=== PATIENT | male | born 1940 | race Caucasian/White ===

== ENCOUNTER 2017-01-14 15:28 | Outpatient (CLI) | payer MEDICARE ==
--- NOTE | 2017-01-15 10:12 | XRAY Report ---
TWO-VIEW CHEST: 01/14/2017 CLINICAL INDICATION: Chronic cough. FINDINGS: Frontal and lateral views of the chest demonstrate a normal cardiac silhouette. Changes o f previous cardiac surgery are present. The lungs are hyperinflated, compatible with COPD. No focal consolidation, effusion, or pneumothorax is present. IMPRESSION: COPD, BUT NO EVIDENCE OF ACUTE CARDIOPULMONARY DISEASE. JOB #: [id number] EXT JOB #:[id number]
== END 2017-01-14 15:29 | disposition home or self-care (01) ==
LOC: DI.S 15:28
PROVIDERS: ATTEND Internal Medicine
DX: J44.9 Chronic obstructive pulmonary disease, unspecified (principal)
CPT/HCPCS: 71020

== ENCOUNTER 2017-02-16 09:14 | Outpatient (CLI) | payer MEDICARE ==
[2017-02-16] MEDS ORDERED: ALBUTEROL NEB 2.5 MG/3 ML INH ONE (09:26)
== END 2017-02-16 09:15 | disposition home or self-care (01) ==
LOC: RT 09:14
PROVIDERS: ATTEND Internal Medicine
DX: R05 Cough (principal)
CPT/HCPCS: 94060; J7613

== ENCOUNTER 2017-04-15 14:59 | Outpatient (CLI) | payer MEDICARE ==
--- NOTE | 2017-04-16 10:44 | XRAY Report ---
TWO VIEW CHEST: 04/15/2017 CLINICAL INDICATION: Cough, dyspnea, weight loss. COMPARISON: 01/14/2017. FINDINGS: Frontal and lateral views of the chest demonstrate a normal cardiac silhouette. Postoperat mallory changes of cardiac surgery are stable. There is new right hilar fullness with surrounding air spa ce disease. This may represent a pneumonia with adenopathy, but the possibility of an underlying mass lesion cannot be excluded. Followup films following appropriate antibiotic therapy are recommended. No effusion or pneumothorax is seen. The lungs remain hyperinflated. IMPRESSION: NEW RIGHT HILAR FULLNESS, WITH PATCHY RIGHT UPPER LOBE INFILTRATE. THESE CHANGES ARE NEW FROM 01/14/2017. FOLLOWUP FOLLOWING APPROPRIATE ANTIBIOTIC THERAPY IS RECOMMENDED TO EXCLUDE A DEVEL OPING MASS LESION. JOB #: [id number] EXT JOB #:[id number]
== END 2017-04-15 15:00 | disposition home or self-care (01) ==
LOC: DI.S 14:59
PROVIDERS: ATTEND Internal Medicine
DX: R91.8 Other nonspecific abnormal finding of lung field (principal)
CPT/HCPCS: 71020

== ENCOUNTER 2017-04-27 13:29 | Outpatient (CLI) | payer OTHER, MEDICARE ==
[2017-04-27 14:01] LABS: CREATININE 0.6 mg/dL (0.6-1.2)
--- NOTE | 2017-04-28 09:09 | CT Report ---
CT CHEST WITHOUT CONTRAST, HIGH-RESOLUTION TECHNIQUE: 04/27/2017 CLINICAL INDICATION: Cough, dyspnea following pneumonia. TECHNIQUE: Axial prone inspiratory, supine inspiratory, supine expiratory images of the lungs were obtained at 1 mm collimation every 20 mm, followed by conventional noncontrast CT of the chest. No previous CT is available for comparison. Comparison is made to previous chest x-ray of 04/15/2017. FINDINGS: There is no evidence of interstitial fibrosis on the high-resolution examination. There is a large right hilar mass present, measuring 7.7 x 3.7 x 7.1 cm. This produces significant mass effect upon the right-sided bronchi, especially the upper lobe. Multiple satellite pulmonary nodules are present in the right lung, measuring up to 2 cm in the superior segment of the right lower lobe. No left-sided pulmonary nodule is appreciated. No effusion or pneumothorax is present. There is a moderate hiatal hernia present. Mediastinal adenopathy is present, but no left hilar adenopathy is seen, allowing for the lack of intravenous contrast. Trace right pleural effusion is seen inferiorly. Limited evaluation of upper abdominal structures demonstrates normal adrenal glands and cholelithiasis. There is a small hypodensity in the posterior right lobe of the liver, likely representing a small cyst. Osseous structures demonstrate degenerative and postsurgical changes. IMPRESSION: LARGE RIGHT HILAR MASS, WITH SATELLITE PULMONARY NODULES. THE APPEARANCE IS MOST SUSPICIOUS FOR A CENTRAL SMALL CELL CARCINOMA. CORRELATION WITH BRONCHOSCOPY AND BIOPSY IS RECOMMENDED. In accordance with CT protocol optimization, one or more of the following dose reduction techniques were utilized for this exam: automated exposure control, adjustment of mA and/or KV based on patient size, or use of iterative reconstructive technique. JOB #: [id number] EXT JOB #: [id number] MTDD
== END 2017-04-27 13:30 | disposition home or self-care (01) ==
LOC: LAB 13:29
PROVIDERS: ATTEND Internal Medicine
DX: R91.8 Other nonspecific abnormal finding of lung field (principal); R05 Cough; R06.00 Dyspnea, unspecified
CPT/HCPCS: 71250; 82565

== ENCOUNTER 2017-07-21 15:20 | Outpatient (CLI) | payer OTHER, MEDICARE ==
--- NOTE | 2017-07-21 16:30 | XRAY Report ---
TWO VIEW CHEST: 07/21/2017 CLINICAL INDICATION: Lung cancer. COMPARISON: 04/15/2017, CT of 04/27/2017. FINDINGS: Frontal and lateral views of the chest demonstrate changes of previous cardiac surgery. A left jugular port terminates in the proximal right atrium. There is now complete collapse of the righ t middle lobe, with increasing size of the right hilar mass from previous chest x-ray. Trace right ef fusion is present. No pneumothorax is seen. IMPRESSION: INCREASING SIZE OF RIGHT HILAR MASS, NOW WITH COMPLETE COLLAPSE OF THE RIGHT MIDDLE LOBE . JOB #: [id number] EXT JOB #:[id number]
== END 2017-07-21 15:21 | disposition home or self-care (01) ==
LOC: DI.S 15:20
PROVIDERS: ATTEND Internal Medicine
DX: C34.11 Malignant neoplasm of upper lobe, right bronchus or lung (principal); J98.19 Other pulmonary collapse
CPT/HCPCS: 71020

== ENCOUNTER 2017-08-03 15:50 | Outpatient (CLI) | payer OTHER, MEDICARE ==
--- NOTE | 2017-08-04 16:20 | XRAY Report ---
TWO VIEW CHEST: 08/03/2017 CLINICAL HISTORY: Short of breath. COMPARISON: Chest CT of 04/27/2017 and chest x-ray of 07/21/2017. FINDINGS: The patient is status post sternotomy with dehiscent superior sternal suture. Left Port-A-Cath in place. There is right middle lobe collapse with a large right hilar mass. Stable to increasing right pleural effusion. Grossly clear left lung without effusion. No pneumothorax. IMPRESSION: CHEST X-RAY SIMILAR IN APPEARANCE TO 07/21/2017 REDEMONSTRATING A LARGE RIGHT HILAR MASS AND RIGHT MIDDLE LOBE COLLAPSE WITH RIGHT PLEURAL EFFUSION. JOB #: [id number] EXT JOB #: [id number] [facility]
== END 2017-08-03 15:51 | disposition home or self-care (01) ==
LOC: DI.S 15:50
PROVIDERS: ATTEND Internal Medicine
DX: R91.8 Other nonspecific abnormal finding of lung field (principal); J98.11 Atelectasis; J90 Pleural effusion, not elsewhere classified
CPT/HCPCS: 71020

== ENCOUNTER 2017-08-19 13:28 | Outpatient (CLI) | payer OTHER ==
--- NOTE | 2017-08-20 13:17 | XRAY Report ---
DATE OF SERVICE: 08/19/2017 EXAM: TWO VIEW CHEST: 08/19/2017 CLINICAL INDICATION: Shortness of breath. COMPARISON: 08/03/2017. FINDINGS: Frontal and lateral views of the chest demonstrate a normal cardiac silhouette. Postopera tive changes are stable. The left jugular port is stable. Right hilar mass and collapse of the right middle lobe are stable. Trace right effusion is present. No pneumothorax. IMPRESSION: LARGE RIGHT HILAR MASS, WITH RIGHT MIDDLE LOBE COLLAPSE AND SMALL RIGHT EFFUSION, STABLE FROM PREVIOUS. NO SIGNIFICANT INTERVAL CHANGE. TD: 08/20/2017 12:06
== END 2017-08-19 13:29 | disposition home or self-care (01) ==
LOC: DI.S 13:28
PROVIDERS: ATTEND Internal Medicine
DX: R91.8 Other nonspecific abnormal finding of lung field (principal); J98.19 Other pulmonary collapse; J90 Pleural effusion, not elsewhere classified; R06.02 Shortness of breath
CPT/HCPCS: 71020

== ENCOUNTER 2017-11-09 11:31 | Outpatient (CLI) | payer OTHER ==
--- NOTE | 2017-11-09 14:44 | XRAY Report ---
TWO VIEW CHEST: 11/09/2017 COMPARISON: Chest CT 10/21/2017. INDICATION: Malignant pleural effusion and chest pain. TECHNIQUE: Two views. FINDINGS: Left thoracic port, tip overlies the cavoatrial junction. Sternotomy is noted. Again seen is a known right perihilar and right middle lobe mass and atelectasis. No appreciable change compared to recent CT. Right pleural effusion is present. No pneumothorax. Mediastinum appears otherwise unremarkable. IMPRESSION: STABLE APPEARANCE OF RIGHT PERIHILAR AND RIGHT MIDDLE LOBE MASS AND RIGHT PLEURAL EFFUSION. NO ACUTE FINDINGS IN OTHER REGARDS. TD: 11/09/2017 14:44 MTDHima
== END 2017-11-09 11:32 | disposition home or self-care (01) ==
LOC: DI 11:31
PROVIDERS: ATTEND Internal Medicine
DX: C34.90 Malignant neoplasm of unspecified part of unspecified bronchus or lung (principal); J91.0 Malignant pleural effusion; R07.9 Chest pain, unspecified
CPT/HCPCS: 71046

== ENCOUNTER 2017-11-09 12:23 | Emergency (ER) | payer MEDICARE, OTHER ==
--- NOTE | 2017-11-09 12:47 | ED Physician Documentation ---
PD HPI DYSPNEA - Stated complaint Stated Complaint: CHEST PAIN - Chief complaint Chief Complaint: General - History obtained from History obtained from: Patient - History of Present Illness Timing - onset: How many weeks ago (he has had increasing dyspnea over 1-2 weeks with recent chemo. Feeling generally weak as well. Had chemo last week again. Seen at [facility] [place] today and had lower Hgb (HCT 26, down from 36 a month ago). He says his stool is slightly dark with iron supplements, has not noted blood nor melena. Referred to ED from [facility] [place] for eval of the dyspnea.) Timing - onset during: Light activity Timing - duration: Weeks (1-2) Timing - details: Gradual onset, Still present Inciting event(s): Other (chemotherapy and right effusion, anemia). No: Out of meds, Immobilization/travel Improved by: Rest Worsened by: Exertion Associated symptoms: No: Fever, Cough, Wheezing, Chest pain / discomfort, Bilateral edema Similar symptoms before: No diagnosis (has had weakness and dyspnea with orther rounds of chemo; this one is more symptomatic than prior courses.) Recently seen: Not recently seen Review of Systems Constitutional: denies: Fever Nose: denies: Rhinorrhea / runny nose, Congestion Throat: denies: Sore throat Cardiac: denies: Chest pain / pressure, Palpitations Respiratory: reports: Dyspnea. denies: Cough, Wheezing GI: denies: Abdominal Pain, Nausea, Vomiting, Diarrhea, Bloody / black stool Neurologic: reports: Generalized weakness. denies: Focal weakness, Numbness, Headache, Head injury PD PAST MEDICAL HISTORY - Past Medical History Past Medical History: Yes Cardiovascular: Hypertension, High cholesterol, Coronary artery disease GI: GERD, Hiatal hernia Musculoskeletal: Osteoarthritis - Past Surgical History General: EGD, Colonoscopy Ortho: Arthroscopic surgery Cardiovascular: CABG - Present Medications Home Medications: Ambulatory Orders Medication Instructions Recorded Confirmed Aspirin Chewable [St Dylan 81 mg PO DAILY 03/17/13 10/27/17 Aspirin] Atenolol [Tenormin] 75 mg PO DAILY 03/17/13 10/27/17 Cholecalciferol (Vitamin D3) 2,000 unit PO DAILY 03/17/13 10/27/17 [Vitamin D-3] Iron 18 mg PO DAILY 03/17/13 10/27/17 Omeprazole [PriLOSEC] 20 mg PO DAILY 03/17/13 10/27/17 Simvastatin 40 mg PO DAILY 03/17/13 10/27/17 hydroCHLOROthiazide [Hydrodiuril] 25 mg PO DAILY 03/17/13 10/27/17 Dexamethasone 4 mg PO BID MDD Day prior & day 09/14/17 10/27/17 after chemo Magnesium Oxide [Mag Ox] 400 mg PO DAILY #30 tablet 11/09/17 Potassium Chloride 10 meq PO DAILY #15 tablet.er 11/09/17 - Allergies Allergies/Adverse Reactions: Allergies Allergy/AdvReac Type Severity Reaction Status Date / Time No Known Drug Allergies Allergy Verified 03/17/13 10:17 - Social History Does the pt smoke?: No Smoking Status: Former smoker PD ED PE NORMAL - Vitals Vital signs reviewed: Yes - General General: Alert and oriented X 3, No acute distress, Well developed/nourished, Other (somewhat annoyed at having to come to ER. ) - HEENT HEENT: Pharynx benign - Neck Neck: Supple, no meningeal sign, No adenopathy - Cardiac Cardiac: RRR (mild bradycardia), No murmur - Respiratory Respiratory: Clear bilaterally - Abdomen Abdomen: Soft, Non tender - Rectal Rectal: Other (normal rectal, brown stool, guiac negative. ) - Back Back: No CVA TTP - Derm Derm: Warm and dry. No: Normal color (mild pallor) - Extremities Extremities: No tenderness to palpate, Normal ROM s pain, No edema, No calf tenderness / cord - Neuro Neuro: Alert and oriented X 3, No motor deficit, Normal speech Results - Vitals Vitals: Oxygen O2 Source Room air - EKG (time done) 12:30 Rate: Rate (enter#) (91) Rhythm: NSR, Other (frequent PVCs, wth bigeminy at times. no strings of PVCs. ) [place]: Normal Intervals: LBBB (incomplete) QRS: Low voltage Ischemia: Normal ST segments. No: ST elevation c/w ischemia, ST depression - Labs Labs: Laboratory Tests 11/09/17 11/09/17 11/09/17 11:25 13:20 13:20 D-Dimer Sodium 136 Potassium 3.0 L Chloride 100 L Carbon Dioxide 23 Anion Gap 13.0 BUN 14 Creatinine 0.6 Estimated GFR (MDRD) 131 Glucose 136 H Calcium 6.9 L Magnesium 0.6 L* Total Bilirubin 0.9 AST 28 ALT 19 Alkaline Phosphatase 48 Troponin I < 0.04 B-Natriuretic Peptide 36 Total Protein 6.3 L Albumin 3.5 Globulin 2.8 Albumin/Globulin Ratio 1.3 Lipase 22 11/09/17 13:20 D-Dimer 355.5 H Sodium Potassium Chloride Carbon Dioxide Anion Gap BUN Creatinine Estimated GFR (MDRD) Glucose Calcium Magnesium Total Bilirubin AST ALT Alkaline Phosphatase Troponin I B-Natriuretic Peptide Total Protein Albumin Globulin Albumin/Globulin Ratio Lipase - Rads (name of study) chest Radiology: Prelim report reviewed, EMP read contemporaneously (stable right effusion and perihilar mass) PD MEDICAL DECISION MAKING - ED course Complexity details: reviewed results (very low Mag and mod low potassium. Other labs showing normal d-dimer (by literature standards, not our lab reference range). Had already had CBC earlier with Hgb 9.7 so not low enough for transfusion. Given supplemental Mag and K. He does not want to be in the hospital. He was annoyed at the time it took for labs and IV replacements. Anxious to get home. Blood count lower than prior presume due to chemo. He is guiac negative. ), considered differential (he had impression he was sent to ER to have blood count checked but it was already done at [facility] and was not low enough for transfusion. Presume here to have eval of weakness/dyspnea. Got other labs and will check CXR. 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 Follow-up with your primary care within the week and have them recheck your electrolytes including magnesium. Your magnesium level was quite low and you want to be on a supplement Mag-Ox 400 mg daily for a few weeks. He will also on a potassium supplement for low potassium level. These are often low as a result of the water pill. Continue your other usual medications. You are moderately anemic in the want to recheck that to make sure it does not go lower. You are not low enough for transfusion at this point. I think her symptoms relate also to the electrolyte problems and should improve with supplements. Discharge Date/Time: 11/09/17 16:15
[2017-11-09] MEDS ORDERED: ALBUTEROL NEB 2.5 MG/3 ML INH STA (13:09)
[2017-11-09] MEDS ORDERED: MAGNESIUM SULFATE 2 GRAM 2 GM/50 ML BAG IV ONE (13:45)
[2017-11-09 13:47] LABS: ALBUMIN 3.5 g/dL (3.2-5.5); ALBUMIN/GLOBULIN RATIO 1.3 (1.0-2.2); BILIRUBIN,TOTAL 0.9 mg/dL (0.2-1.0); CALCIUM 6.9 mg/dL (8.5-10.3); CREATININE 0.6 mg/dL (0.6-1.2); MAGNESIUM 0.6 mg/dL (1.7-2.8); TOTAL PROTEIN 6.3 g/dL (6.7-8.2)
[2017-11-09] MEDS ORDERED: POTASSIUM CHLOR 10 MEQ/100 ML 10 MEQ/100 ML BAG IV ONE (13:51)
[2017-11-09] MEDS ORDERED: POTASSIUM BICARB 25 MEQ TABLET PO STA (13:51)
[2017-11-09 15:32] VITALS: BP 129/69
== END 2017-11-09 16:15 | disposition home or self-care (01) ==
LOC: ED 12:23
DX: R53.1 Weakness (principal); E87.6 Hypokalemia; E83.42 Hypomagnesemia; R06.09 Other forms of dyspnea; D61.810 Antineoplastic chemotherapy induced pancytopenia; C34.90 Malignant neoplasm of unspecified part of unspecified bronchus or lung; J91.0 Malignant pleural effusion; R07.9 Chest pain, unspecified; I44.7 Left bundle-branch block, unspecified; I10 Essential (primary) hypertension; I25.10 Atherosclerotic heart disease of native coronary artery without angina pectoris; E78.00 Pure hypercholesterolemia, unspecified; Z95.1 Presence of aortocoronary bypass graft; Z79.82 Long term (current) use of aspirin
CPT/HCPCS: 36415; 71046; 80053; 83690; 83735; 83880; 84484; 85379; 93005; 94640; 96365; 96367; 99283; 99284; A9270

== ENCOUNTER 2017-12-13 14:57 | Outpatient (CLI) | payer OTHER ==
--- NOTE | 2017-12-13 16:08 | Ultrasound Report ---
RIGHT GROIN ULTRASOUND: 12/13/2017 CLINICAL INDICATION: Right groin pain. TECHNIQUE: Real-time scanning was performed with route sales representative static images obtained. FINDINGS: Ultrasound of the region of pain identified by the patient was performed. At this site, there is a right inguinal hernia, containing fat. The hernia neck measures approximately 1.3 cm. No bowel herniation is seen. IMPRESSION: RIGHT INGUINAL HERNIA, CONTAINING FAT. TD: 12/13/2017 16:08
== END 2017-12-13 14:58 | disposition home or self-care (01) ==
LOC: DI 14:57
PROVIDERS: ATTEND Nurse Practitioner Family
DX: K40.90 Unilateral inguinal hernia, without obstruction or gangrene, not specified as recurrent (principal)
CPT/HCPCS: 76857

== ENCOUNTER 2018-01-14 14:11 | Outpatient (CLI) | payer OTHER ==
--- NOTE | 2018-01-14 17:38 | XRAY Report ---
TWO-VIEW CHEST: 01/14/2018 CLINICAL INDICATION: Cough. COMPARISON: 11/09/2017. FINDINGS: Frontal and lateral views of the chest demonstrate a normal cardiac silhouette. Right perihilar mass and right pleural effusion appears stable. Left jugular port is stable postoperative changes are stable. No new consolidation, effusion, or pneumothorax is present. IMPRESSION: STABLE RIGHT HILAR MASS AND RIGHT EFFUSION. NO SIGNIFICANT INTERVAL CHANGE. TD: 01/14/2018 14:41
== END 2018-01-14 14:12 | disposition home or self-care (01) ==
LOC: DI.S 14:11
PROVIDERS: ATTEND Internal Medicine
DX: R05 Cough (principal); R06.2 Wheezing; R91.8 Other nonspecific abnormal finding of lung field
CPT/HCPCS: 71046

== ENCOUNTER 2018-02-07 06:56 | Day surgery (SDC) | payer OTHER ==
[2018-02-07] MEDS ORDERED: LACTATED RINGERS 1,000 ML IV ONE ×2 (07:15→10:15)
[2018-02-07] MEDS ORDERED: ceFAZolin 2 GM/50 ML 2 GM/50 ML BAG IV ONE (07:29)
[2018-02-07 07:45] LABS: BASOPHILS % (AUTO) 0.5 %; EOSINOPHILS # (AUTO) 0.2 10^3/uL (0.0-0.7); EOSINOPHILS % (AUTO) 2.3 %; HGB - HEMOGLOBIN 12.6 g/dL (14.0-18.0); LYMPHOCYTES # (AUTO) 0.8 10^3/uL (1.5-3.5); LYMPHOCYTES % (AUTO) 10.3 %; MEAN CORPUSCULAR HEMOGLOBIN 29.7 pg (27.0-31.0); MEAN CORPUSCULAR HGB CONC 32.2 g/dL (32.0-36.0); MEAN PLATELET VOLUME 8.3 fL (7.4-11.4); MONOCYTES # (AUTO) 0.9 10^3/uL (0.0-1.0); MONOCYTES % (AUTO) 11.7 %; NEUTROPHILS # (AUTO) 5.8 10^3/uL (1.5-6.6); NEUTROPHILS % (AUTO) 75.2 %; PLT - PLATELET COUNT 179 10^3/uL (130-450); RED BLOOD COUNT 4.26 10^6/uL (4.70-6.10); RED CELL DISTRIBUTION WIDTH 16.4 % (12.0-15.0); WHITE BLOOD COUNT 7.8 x10^3/uL (4.8-10.8)
[2018-02-07 07:50] LABS: INR 1.1 (0.8-1.2); PT - PROTHROMBIN TIME 12.6 secs (9.9-12.6)
[2018-02-07 07:57] LABS: ALBUMIN 3.5 g/dL (3.2-5.5); ALBUMIN/GLOBULIN RATIO 1.1 (1.0-2.2); BILIRUBIN,TOTAL 0.8 mg/dL (0.2-1.0); CALCIUM 9.1 mg/dL (8.5-10.3); CREATININE 0.6 mg/dL (0.6-1.2); TOTAL PROTEIN 6.8 g/dL (6.7-8.2)
[2018-02-07] MEDS ORDERED: SODIUM CHLORIDE 0.9% 10 ML ONE (09:20)
[2018-02-07] MEDS ORDERED: BUPIVACAINE 0.5% PF 10 ML VIAL ONE (09:39)
[2018-02-07] MEDS ORDERED: PROPOFOL 1000 MG/100 ML IV ONE (09:40)
[2018-02-07] MEDS ORDERED: KETAMINE 500 MG/10 ML VIAL IVP ONE (09:40)
[2018-02-07] MEDS ORDERED: MIDAZOLAM 2 MG/2 ML VIAL IVP ONE (09:40)
[2018-02-07] MEDS ORDERED: ONDANSETRON 4 MG/2 ML VIAL IVP ONE (09:40)
[2018-02-07] MEDS ORDERED: KETOROLAC 30 MG/ML VIAL IVP ONE (09:40)
[2018-02-07] MEDS ORDERED: ceFAZolin 1 GM VIAL ONE (09:43)
[2018-02-07] MEDS ORDERED: LIDOCAINE MPF 1%-EPI 1:200000 30 ML VIAL SUBQ ONE (10:02)
[2018-02-07] MEDS ORDERED: ceFAZolin 1 GM VIAL IR ONE (10:02)
[2018-02-07] MEDS ORDERED: BUPIVACAINE 0.5% PF 10 ML VIAL IM ONE (10:02)
[2018-02-07] MEDS ORDERED: LIDOCAINE 1%-EPI 1:100000 30 ML MDV ONE (10:03)
[2018-02-07 12:17] VITALS: BP 125/69
--- NOTE | 2018-02-07 12:30 | OPERATIVE REPORT ---
DATE OF SERVICE: 02/07/2018 Physician: Jacobo Marcus MD PREOPERATIVE DIAGNOSIS: Symptomatic right inguinal hernia. POSTOPERATIVE DIAGNOSIS: Symptomatic right inguinal hernia, direct. PROCEDURE PERFORMED: Open repair of same with polypropylene soft tissue patch. ANESTHESIA: Local plus monitored anesthesia care. SURGEON: Jacobo Marcus M.D. ESTIMATED BLOOD LOSS: Minimal. COMPLICATIONS: None. FINDINGS: A moderate sized direct right inguinal hernia was present. There was no evidence of indirect hernia. INDICATIONS: The patient is a 78-year-old gentleman with stage IV lung cancer and a markedly symptomatic right inguinal hernia that he would like repaired. He was advised to undergo repair under local anesthesia with monitored anesthesia care. PROCEDURE: After informed consent, the patient was taken to the operating room where he was sedated and monitored. Preoperative preparation including application of sequential calf compression boots and administration of 2 grams cefazolin intravenously within 1 hour of the incision. The right groin was clipped and prepared with ChloraPrep solution and draped in the usual sterile fashion. 40 mL of a 50:50 mixture of 0.5% Marcaine plain and 1% lidocaine with epinephrine was used for local infiltration anesthesia, a total of 40 mL was used. A transverse incision was made in the skin lines of the right groin beginning just above the pubic tubercle and extending laterally for 5 cm. Hemostasis with electrocautery and 2-0 Vicryl tie. Incision was carried down through the subcutaneous tissues until the external oblique aponeurosis was identified. It was incised along the lines of its fibers in such a manner as to open the external ring and expose the internal ring. The ilioinguinal nerve was identified and preserved. The spermatic cord was mobilized, encircled with a Gerald drain. The direct defect was readily identified with the associated hernia sac and was dissected free from the cord structures, was reduced and secured temporarily with a 3-0 silk suture imbricating the inguinal floor. The spermatic cord was dissected, isolating a cord lipoma, which was ligated at the level of the internal ring with 2-0 Vicryl, amputated and discarded. After the inguinal floor was fully exposed and hemostasis was assured, the wound was irrigated with antibiotic solution containing a gram of cefazolin per liter, following which a Covidien medium sized inguinal hernia patch consisting of expanded mesh polypropylene was soaked in the antibiotic solution, placed over the inguinal floor and secured in place circumferentially with continuous 4-0 Prolene sutures. Care was taken to avoid excessive tightening of the patch around the cord at the level of the internal ring. Sutures were placed in the ilioinguinal ligament inferiorly, the internal oblique aponeurosis laterally and superior, and the lateral border of the rectus sheath medially. After hemostasis was assured, the wound was then irrigated with antibiotic solution again following which wound closure was accomplished in layers using continuous 2-0 Vicryl to reapproximate the external oblique aponeurosis overlying the cord with care being taken to avoid entrapment of the ilioinguinal nerve. Yajaira's fascia was closed with continuous 3-0 Vicryl and the skin with 4-0 Monocryl subcuticular skin closure, followed by Dermabond. The procedure was terminated and the patient transferred to the recovery room in satisfactory condition. Sponge and needle counts correct x2. No drains were used. TD: 02/07/2018 11:39
== END 2018-02-07 06:57 | disposition home or self-care (01) ==
LOC: SDS 06:56
PROVIDERS: ATTEND Internal Medicine Gastroenterology
PROC: 0YU50JZ Supplement Right Inguinal Region with Synthetic Substitute, Open Approach (ICD-10-PCS; principal; 2018-02-07 08:15)
DX: K40.90 Unilateral inguinal hernia, without obstruction or gangrene, not specified as recurrent (principal); I10 Essential (primary) hypertension; E78.5 Hyperlipidemia, unspecified; C34.90 Malignant neoplasm of unspecified part of unspecified bronchus or lung; Z95.1 Presence of aortocoronary bypass graft; Z79.82 Long term (current) use of aspirin; J44.9 Chronic obstructive pulmonary disease, unspecified; I25.810 Atherosclerosis of coronary artery bypass graft(s) without angina pectoris
CPT/HCPCS: 49505; 80053; 85025; 85610; 93005; C1781; J0690; J7120

== ENCOUNTER 2018-03-10 08:39 | Outpatient (CLI) | payer OTHER ==
--- NOTE | 2018-03-10 11:50 | XRAY Report ---
Procedure Date: 03/10/2018 Accession Number: [id number] / [id number] Procedure: XR - Cervical Spine Complete CPT Code: FULL RESULT: EXAM: Cervical Spine Complete DATE: 03/10/2018 9:04 AM CLINICAL HISTORY: POSSIBLE BICEPS TENDINOPATHY COMPARISON: None. TECHNIQUE: 5 views. FINDINGS: Alignment: Normal. No spondylolisthesis or scoliosis. Bones: The cervical vertebral bodies and posterior elements are well-visualized from the skull base through C7-T1. No fractures or bone lesions. Disks: Moderate degenerative changes. Facets: Mild facet arthropathy. Neural Foramina: Bilateral osseous neuroforaminal narrowing. Soft Tissues: Normal. No prevertebral soft tissue swelling. The visualized lung apices are clear. IMPRESSION: Degenerative changes, with osseous neural foraminal narrowing. [facility]
--- NOTE | 2018-03-10 13:10 | MRI Report ---
Procedure Date: 03/10/2018 Accession Number: [id number] / [id number] Procedure: MRI - Shoulder RT W/O CPT Code: FULL RESULT: EXAM: RIGHT SHOULDER MRI WITHOUT CONTRAST EXAM DATE: 03/10/2018 10:09 AM. CLINICAL HISTORY: Possible biceps tendinopathy. COMPARISON: None. TECHNIQUE: Multiplanar, multisequence T1-weighted and fluid-sensitive sequences of the shoulder without contrast. Other: None. FINDINGS: Acromioclavicular Region: The acromion is type II. Mild to moderate degenerative joint disease with undersurface osteophytes. The coracoacromial and coracoclavicular ligaments are intact. Trace subacromial fluid. Glenohumeral Region: Moderate degenerative joint disease with a large medial humeral osteophyte. Subcortical cyst formation at the lateral humeral head likely related to rotator cuff tendinopathy. Severe joint space narrowing. No fracture. Bone Marrow: No fracture, marrow edema or bone lesions. Labrum: Degenerative fraying of the anterior and posterior labrum. No displaced fragments on noncontrast MR. Musculature/Rotator Cuff: Mild T2 hyperintensity at the distal supraspinatus and infraspinatus tendons, tendinosis. Subscapularis and teres minor appear normal. No edema or fatty atrophy. Biceps Tendon: The long head of the biceps tendon and biceps marry are intact. Other: The subcutaneous tissues are unremarkable. IMPRESSION: 1. Biceps tendon intact. 2. Moderate to severe degenerative joint disease of the glenohumeral joint. 3. Mild to moderate acromioclavicular degenerative joint disease. 4. Mild distal supraspinatus and infraspinatus tendinosis. 5. Degenerative fraying of the labrum. [facility] MUSCULOSKELETAL RADIOLOGY SECTION
== END 2018-03-10 08:40 | disposition home or self-care (01) ==
LOC: DI 08:39
PROVIDERS: ATTEND Internal Medicine
DX: M47.892 Other spondylosis, cervical region (principal); M50.31 Other cervical disc degeneration, high cervical region; M19.011 Primary osteoarthritis, right shoulder; M75.91 Shoulder lesion, unspecified, right shoulder
CPT/HCPCS: 72050

== ENCOUNTER 2018-04-19 08:45 | Outpatient (CLI) | payer OTHER ==
--- NOTE | 2018-04-19 11:04 | XRAY Report ---
Procedure Date: 04/19/2018 Accession Number: [id number] / [id number] Procedure: XR - XR 2V Insp/Exp Post Thorac CPT Code: 53648 FULL RESULT: EXAM: CHEST RADIOGRAPHY EXAM DATE: 04/19/2018 10:47 AM. CLINICAL HISTORY: POST THORACENTESIS. COMPARISON: 04/11/[address], 11/09/2017 chest x-ray. TECHNIQUE: 1 view. FINDINGS: Right hilar mass and right lower lung volume loss and pleural fluid slightly progressed since 11/09/2017. Left lung grossly clear. No pneumothorax. Left subclavian Port-A-Cath in place. Changes of sternotomy with dehiscent superior sternal wire as before. IMPRESSION: No pneumothorax status post right thoracentesis. [facility]
--- NOTE | 2018-04-19 11:06 | Ultrasound Report ---
Procedure Date: 04/19/2018 Accession Number: [id number] / [id number] Procedure: US - Thoracentesis Puncture CPT Code: FULL RESULT: EXAM: ULTRASOUND-GUIDED THORACENTESIS EXAM DATE: 04/19/2018 10:41 AM. CLINICAL HISTORY: LUNG CANCER. COMPARISON: Chest CT 04/11/2018. TECHNIQUE: Risks, benefits and alternatives to the procedure were discussed with the patient. All questions answered. Written and verbal consent obtained. Patient was placed in the sitting position and the skin overlying the right effusion marked with sonographic guidance. The skin was sterilely prepped and draped, and 1% buffered lidocaine was used for local anesthesia. An 18-gauge [employer] Filmse[employer] catheter was advanced into the pleural space and fluid aspirated. Upon completion, the catheter was removed. FINDINGS: A total of 1375 mL of fluid was removed without immediate complication. Patient tolerated procedure well. Postprocedure chest x-ray shows no pneumothorax. IMPRESSION: Ultrasound-guided right thoracentesis without immediate complications. [facility]
[2018-04-19 11:29] VITALS: BP 152/91
[2018-04-19] MEDS ORDERED: BUFFERED LIDOCAINE 10 ML SYRINGE IU ONE (17:49)
== END 2018-04-19 08:46 | disposition home or self-care (01) ==
LOC: DI 08:45
PROVIDERS: ATTEND Internal Medicine
DX: C34.90 Malignant neoplasm of unspecified part of unspecified bronchus or lung (principal); R06.02 Shortness of breath
CPT/HCPCS: 32555; 71046

== ENCOUNTER 2018-05-20 15:35 | Inpatient (IN) | payer MEDICARE, OTHER ==
[2018-05-20 16:38] LABS: BASOPHILS % (AUTO) 0.4 %; EOSINOPHILS % (AUTO) 0.3 %; HGB - HEMOGLOBIN 10.3 g/dL (14.0-18.0); LYMPHOCYTES % (AUTO) 11.8 %; MEAN CORPUSCULAR HEMOGLOBIN 29.6 pg (27.0-31.0); MEAN CORPUSCULAR HGB CONC 33.9 g/dL (32.0-36.0); MEAN CORPUSCULAR VOLUME 87.3 fL (80.0-94.0); MEAN PLATELET VOLUME 7.9 fL (7.4-11.4); MONOCYTES % (AUTO) 16.2 %; NEUTROPHILS % (AUTO) 71.3 %; PLT - PLATELET COUNT 147 10^3/uL (130-450); RED BLOOD COUNT 3.49 10^6/uL (4.70-6.10); RED CELL DISTRIBUTION WIDTH 19.5 % (12.0-15.0)
[2018-05-20 16:44] LABS: ABNORMAL LYMPHS % (MANUAL) 0 %; BAND NEUTROPHILS % (MANUAL) 0 %
[2018-05-20 16:53] LABS: CALCIUM 8.6 mg/dL (8.5-10.3); CREATININE 0.8 mg/dL (0.6-1.2)
[2018-05-20 17:00] LABS: LYMPHOCYTES # (MANUAL) 0.7 10^3/uL (1.5-3.5); LYMPHOCYTES % (MANUAL) 16 %; METAMYELOCYTES % (MANUAL) 2 %; MONOCYTES # (MANUAL) 0.2 10^3/uL (0.0-1.0); MYELOCYTES % (MANUAL) 1 %; NEUTROPHILS % (MANUAL) 74 %
[2018-05-20 17:07] LABS: PLATELET ESTIMATE, MANUAL NORMAL (130-450,000) (NORMAL); PLATELET MORPHOLOGY NORMAL APPEARANCE (NORMAL)
--- NOTE | 2018-05-20 17:27 | ED Physician Documentation ---
History of Present Illness - Stated complaint Stated Complaint: SOA/LIGHTHEADED - Chief complaint Chief Complaint: Resp - Additonal information Additional information: hx from pt 78 male with primary lung cancer [place] [facility] [place] feels tired and SOA for about a week s/p chemo but this time having lower abd cramping (which he initially attributed to miralax) and now large amt of BRBPR no prior GIB since he took a [place] road trip many many years ago no fever Review of Systems Constitutional: reports: Fatigue. denies: Fever, Chills Cardiac: denies: Chest pain / pressure Respiratory: reports: Dyspnea. denies: Cough GI: reports: Abdominal Pain, Bloody / black stool Endocrine: denies: Easy bruising / bleeding Immunocompromised: denies: Immunocompromised PD PAST MEDICAL HISTORY - Past Medical History Past Medical History: Yes Cardiovascular: Hypertension, High cholesterol, Coronary artery disease Respiratory: Other GI: GERD, Hiatal hernia HEENT: Chronic hearing loss Musculoskeletal: Osteoarthritis Other Past Medical History: lung CA - Past Surgical History Past Surgical History: Yes General: EGD, Colonoscopy Ortho: Arthroscopic surgery Cardiovascular: CABG Derm: Other - Present Medications Home Medications: Ambulatory Orders Medication Instructions Recorded Confirmed Aspirin Chewable [St Dylan 81 mg PO DAILY 03/17/13 05/11/18 Aspirin] Atenolol [Tenormin] 75 mg PO DAILY 03/17/13 05/11/18 Cholecalciferol (Vitamin D3) 2,000 unit PO DAILY 03/17/13 05/11/18 [Vitamin D-3] Iron 18 mg PO DAILY 03/17/13 05/11/18 Omeprazole [PriLOSEC] 20 mg PO DAILY 03/17/13 05/11/18 Simvastatin 40 mg PO DAILY 03/17/13 05/11/18 Dexamethasone 4 mg PO BID MDD Day prior & day 09/14/17 05/11/18 after chemo Potassium Chloride 10 meq PO DAILY #15 tablet.er 11/09/17 05/11/18 Magnesium Oxide [Mag Ox] 800 mg PO DAILY 11/17/17 05/11/18 Spironolactone 25 mg PO DAILY 11/17/17 05/11/18 Fluticasone/Salmeterol [Advair Hfa 2 puffs IH BID 12/15/17 05/11/18 115-21 Mcg Inhaler] Fluticasone [Flonase] 1 sprays KIKE DAILY PRN 03/31/18 05/11/18 LORazepam [Lorazepam] 0.5 - 1 mg PO Q6HR PRN 03/31/18 05/11/18 Ondansetron HCl [Zofran] 8 mg PO Q8HR PRN 03/31/18 05/11/18 Prochlorperazine Maleate 10 mg PO Q6HR PRN 03/31/18 05/11/18 [Compazine] - Allergies Allergies/Adverse Reactions: Allergies Allergy/AdvReac Type Severity Reaction Status Date / Time No Known Drug Allergies Allergy Verified 05/20/18 15:49 - Social History Does the pt smoke?: No Smoking Status: Former smoker Does the pt drink ETOH?: No Does the pt have substance abuse?: No - Immunizations Immunizations are current?: Yes PD ED PE NORMAL - Vitals Vital signs reviewed: Yes - General General: Alert and oriented X 3 - HEENT HEENT: PERRL - Cardiac Cardiac: RRR - Respiratory Respiratory: No respiratory distress, Other (good breath sounds bilaterally) - Abdomen Abdomen: Soft, Other (mild TTP lower abd s peritoneal sx) - Rectal Rectal: Other (small hemorrhoid not bleeding, no fissure, no mass on DIEGO) - Derm Derm: Other (little pale) - Neuro Neuro: Alert and oriented X 3 Results - Vitals Vitals: Vital Signs - 24 hr 05/20/18 05/20/18 05/20/18 15:43 16:08 17:24 Temperature 36.5 C Heart Rate 94 85 84 Respiratory 16 17 18 Rate Blood Pressure 128/85 H 106/72 123/81 H O2 Saturation 100 100 97 05/20/18 18:29 Temperature Heart Rate 85 Respiratory 16 Rate Blood Pressure 163/85 H O2 Saturation 98 Oxygen O2 Source Room air - EKG (time done) 1711 Rate: Rate (enter#) (82) Rhythm: NSR, Other (one PVC) QRS: Poor R wave progression, Low voltage Ischemia: Non specific changes - Labs Labs: Laboratory Tests 05/20/18 05/20/18 05/20/18 15:55 15:55 15:55 WBC 4.0 L RBC 3.49 L Hgb 10.3 L Hct 30.5 L MCV 87.3 MCH 29.6 MCHC 33.9 RDW 19.5 H Plt Count 147 MPV 7.9 Neut # (Auto) Not Reportable Lymph # (Auto) Not Reportable [place] # (Auto) Not Reportable Eos # (Auto) Not Reportable Baso # (Auto) Not Reportable Absolute Nucleated RBC Not Reportable Total Counted 100 Band Neuts % (Manual) 0 Reactive Lymphs % (Man) 2 Abnorm Lymph % (Manual) 0 Metamyelocytes % 2 H Myelocytes % 1 H Nucleated RBC % Not Reportable Neutrophils # (Manual) 3.0 Lymphocytes # (Manual) 0.7 L Monocytes # (Manual) 0.2 Eosinophils # (Manual) 0.0 Basophils # (Manual) 0.0 Manual Slide Review Indicated Platelet Estimate NORMAL (130-450,000) Platelet Morphology NORMAL APPEARANCE RBC Morph Micro Appear 1+ OVALOCYTES Sodium 132 L Potassium 4.1 Chloride 95 L Carbon Dioxide 26 Anion Gap 11.0 BUN 26 H Creatinine 0.8 Estimated GFR (MDRD) 94 Glucose 142 H Calcium 8.6 Troponin I < 0.04 B-Natriuretic Peptide 05/20/18 15:55 WBC RBC Hgb Hct MCV MCH MCHC RDW Plt Count MPV Neut # (Auto) Lymph # (Auto) [place] # (Auto) Eos # (Auto) Baso # (Auto) Absolute Nucleated RBC Total Counted Band Neuts % (Manual) Reactive Lymphs % (Man) Abnorm Lymph % (Manual) Metamyelocytes % Myelocytes % Nucleated RBC % Neutrophils # (Manual) Lymphocytes # (Manual) Monocytes # (Manual) Eosinophils # (Manual) Basophils # (Manual) Manual Slide Review Platelet Estimate Platelet Morphology RBC Morph Micro Appear Sodium Potassium Chloride Carbon Dioxide Anion Gap BUN Creatinine Estimated GFR (MDRD) Glucose Calcium Troponin I B-Natriuretic Peptide 39 - Rads (name of study) CT chest Radiology: See rad report (decreased R pleural effusion, RML collapse and R lung consolidation c/w prior radiation all unchanged) CT AP Radiology: See rad report (acute diverticulitis s abscess) PD MEDICAL DECISION MAKING - ED course ED course: acute divertic in a chemo pt with GIB and worsening H/H needs admit [place] [facility], also has [facility] but states [facility] is [facility] spoke to T[facility] who states no inpatient beds at the [facility] and that we should admit the patient here paged hospitalist at [phone] - Sepsis Event Vital Signs: Vital Signs - 24 hr 05/20/18 05/20/18 05/20/18 15:43 16:08 17:24 Temperature 36.5 C Heart Rate 94 85 84 Respiratory 16 17 18 Rate Blood Pressure 128/85 H 106/72 123/81 H O2 Saturation 100 100 97 05/20/18 18:29 Temperature Heart Rate 85 Respiratory 16 Rate Blood Pressure 163/85 H O2 Saturation 98 Oxygen O2 Source Room air Departure - Departure Disposition: [facility] DC/Xfer Clinical Impression: Diverticulitis GI bleed Qualifiers: GI bleed type/associated pathology: unspecified gastrointestinal hemorrhage type Qualified Code(s): K92.2 - Gastrointestinal hemorrhage, unspecified Condition: Good
--- NOTE | 2018-05-20 18:22 | CT Report ---
Reason: sheree GUTIERRES known lung cancer Procedure Date: 05/20/2018 Accession Number: [id number] / [id number] Procedure: CT - Chest W/O CPT Code: FULL RESULT: EXAM: CT CHEST EXAM DATE: 05/20/2018 05:40 PM. CLINICAL HISTORY: Shortness of breath. GI bleed. Known lung cancer. COMPARISONS: CHEST W/ 04/11/2018 9:04 AM. TECHNIQUE: Routine helical CT imaging was performed through the chest. IV contrast: None. Reconstructions: Coronal and sagittal. In accordance with CT protocol optimization, one or more of the following dose reduction techniques were utilized for this exam: automated exposure control, adjustment of mA and/or KV based on patient size, or use of iterative reconstructive technique. FINDINGS: Lungs/Pleura: Stable near complete collapse of the right middle lobe. Moderate right pleural effusion, slightly smaller. Medial fibrotic changes, likely from prior radiation. Clear left lung. No pneumothorax. No left effusion.. Mediastinum: Stable right hilar prominence contiguous with the collapsed right middle lobe with encasement and narrowing of the right middle lobe bronchus. No enlarged lymph nodes. No cardiac or aortic enlargement. Aortic and coronary artery calcification noted. No pericardial effusion. Bones: Unremarkable. IMPRESSION: 1. Smaller right pleural effusion. 2. Stable right middle lobe collapse and stable medial right lung fibrotic changes compatible with prior radiation. RADIA
--- NOTE | 2018-05-20 18:27 | CT Report ---
Reason: abd pain GIB bleed, known lung cancer Procedure Date: 05/20/2018 Accession Number: [id number] / [id number] Procedure: CT - Abdomen/Pelvis W/O CPT Code: FULL RESULT: EXAM: CT ABDOMEN AND PELVIS EXAM DATE: 05/20/2018 05:40 PM. CLINICAL HISTORY: Abdomen pain. GI bleed. Known lung cancer. COMPARISONS: ABDOMEN/PELVIS W/ 04/11/2018 9:04 AM. TECHNIQUE: Routine helical CT imaging was performed through the abdomen and pelvis. IV contrast: None. Enteric contrast: No. Reconstructions: Coronal and sagittal. In accordance with CT protocol optimization, one or more of the following dose reduction techniques were utilized for this exam: automated exposure control, adjustment of mA and/or KV based on patient size, or use of iterative reconstructive technique. FINDINGS: Liver: Stable subcentimeter liver low densities, likely cysts. Gallbladder/Bile Ducts: Calcified gallstones. No dilated ducts. Spleen: Normal. Pancreas: Normal. Adrenal Glands: Normal. Kidneys: Normal. No masses or hydronephrosis. Peritoneal Cavity/Bowel: Advanced diverticulosis. Wall thickening in the lower left colon with adjacent fat stranding. No free fluid, free air or adenopathy. No masses. The appendix is well visualized and normal. Pelvic Organs: The prostate and bladder are unremarkable. Vasculature: No aortic enlargement. Moderate atherosclerotic calcification. Bones: Degenerative disk disease and facet arthropathy in the lower lumbar spine. Other: None. IMPRESSION: 1. Uncomplicated left lower quadrant diverticulitis. 2. Calcified gallstones. RADIA
[2018-05-20] MEDS ORDERED: AMPICILLIN/SULBACTAM 3 GM in SODIUM CHLORIDE 0.9% MINIBAG 100 ML IV STA (18:42)
[2018-05-20] MEDS ORDERED: LORazepam 0.5 MG TABLET PO PRN (18:51)
[2018-05-20] MEDS ORDERED: FLUTICASONE NASAL SPRAY NAS PRN (18:51)
[2018-05-20] MEDS ORDERED: ZOLPIDEM 5 MG TABLET PO PRN (18:52)
[2018-05-20] MEDS ORDERED: PROCHLORPERAZINE 10 MG/2 ML VIAL IVP PRN (18:52)
[2018-05-20] MEDS ORDERED: PROMETHAZINE 25 MG/1 ML VIAL IM PRN (18:52)
[2018-05-20] MEDS ORDERED: oxyCODONE 5 MG TABLET PO PRN (18:52)
[2018-05-20] MEDS ORDERED: ACETAMINOPHEN 325 MG TABLET PO PRN (18:52)
[2018-05-20] MEDS ORDERED: MORPHINE 2 MG/ML CARPUJECT IVP PRN (18:52)
--- NOTE | 2018-05-20 19:55 | HISTORY & PHYSICAL EXAMINATION ---
Chief Complaint - Chief Complaint Chief Complaint: lower abd cramping for a few days after miralax and bloody stool today History of Present Illness - Admitted From Admitted From:: Home/ER - History Obtained From Records Reviewed: Santino Moyer History obtained from: Comfort, patient Exam Limitations: none - History of Present Illness HPI Comment/Other: He is a 78-year-old male who has quite a few complaints. Most of them are venting with regards to his frustration with how he feels things are not being handled well. The first of which is his delay in diagnosis. He had weight loss to 30 pounds, cough, and he was told he had allergies. He feels that his diagnosis was delayed by 4 months and may be this would have impacted his overall survival. So he is angry about that. His next frustration is about how this hospital handles [facility] patients. Every time he comes here "someone is always screwing up the billing". He thinks that by now the admitting desk and the billing desk should understand how to handle [facility]. His point is that he is not the first patient nor will he be the last and they should figure it out quickly. His final complaint has to do with phone Chargers. His phone is . He is a busy person with lots of people that need to keep in contact with him. He does not remember their phone numbers. And he wants to know why this hospital does not have phone charges for people who do not remember to bring their own phone chargers from home. With all of that being said, we finally get to his complaint for being here. 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 He is getting ongoing palliative chemotherapy since 2016 and has had some response with tumor shrinkage. He has constant daily cough. Constant daily dyspnea on exertion that waxes and wanes. The first 2 weeks after chemo treatment, he is pretty miserable with a cough and shortness of breath. Fatigue. By the third week it improves, appetite gets a little bit better, food taste better, and then he gets another course of chemotherapy. He has alternating constipation and diarrhea. He will get so stopped up that he has to take laxatives and then for 2 days he sits on the thrown. Recently the [facility] finally authorized him to go on Keytruda. He is been taking carboplatinum without the Keytruda. Keytruda got added with his last treatment. He found his constipation to be much more severe at this time around. He started taking MiraLAX. Gave him some cramping this week. So he stopped the MiraLAX and he was better for the course of the day. But he was still constipated so he resumed the MiraLAX on Wednesday (today is Wednesday). All this week he has had lower pelvic cramping that cuts across his suprapubic area. The cramping was getting worse since he resumed the MiraLAX on Wednesday. Today he had bright red blood per rectum with a large bloody bowel movement. Sharpness to the pain that was worse. And he came in to the ER after speaking to the [facility]. He has been evaluated by the emergency room doctor and has no fever, a white cell count of 4, normal vital signs, and minimal abdominal pain without peritoneal findings. He does have a headache that is new over the last 3 weeks but he attributes it to the Keytruda. But CT scan confirms diverticulitis. He does have known severe diverticular disease. Because he has anemia, he had an EGD and colonoscopy in February 2013. The colonoscopy shows extensive sigmoid di verticulosis and internal hemorrhoids. The EGD shows a moderate size hiatal hernia, Ramachandran's esophagus, and fundal polyps. To his knowledge he has never had any problems with diverticular disease symptoms until now. He is now placed in acute inpatient status for the treatment of his diverticulit is. History - Past Medical History Cardiovascular: reports: Hypertension, High cholesterol, Coronary artery disease ( presented as chest pain and had ETT, resulted in ACB 2011. He has not had any cp since and no ETT since then either. ), Other (irregular heart beat in the past) Respiratory: reports: COPD, Other (malignant pleural effusion) Neuro: reports: None Endocrine/Autoimmune: reports: None GI: reports: GERD (EGD 02/2013 with Ramachandran's esophagus, stomach with fundal polyps), Hiatal hernia (moderate size on EGD 02/2013), Hemorrhoids (internal seen on C scope 02/2013), Other (extensive sigmoid diverticulosis 02/2013) : reports: None HEENT: reports: Glaucoma, Chronic hearing loss Psych: reports: None Musculoskeletal: reports: Osteoarthritis MRSA Hx?: No Other Past Medical History: lung CA - Past Surgical History General: reports: Colonoscopy, EGD, Other (Right inguinal hernia repair 01/2018) Ortho: reports: Arthroscopic surgery (right shoulder), Other (right ankle distal tib fib 02/2010) Cardiovascular: reports: CABG Derm: reports: Other - Family & Social History Family History Comment/Other: Mom at age 62 with pancreatitis. Dad at age 58 of lung cancer. One brother and one sister. His brother has heart disease and is a type a personality. Sister is healthy. He is not in contact with 3 children and does not know any other health history Living arrangement: At home Living Situation: Alone Social History Notes: He was born in [place] and has spent his later years in [place] and [place] but before then was in [place]. He left [place] at the age of 20 and went into the [employer] in [place] until he returned here in 1984. When he was in [place] he got a girl at the age of 20. her. Had one child with her. her. a second time when he got his second girlfriend and this time had twin boys. He her. third time and was by the age of 30. He is not in contact with any of his children. After he got out of the [employer] he had a very colorful life. 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 He managed [employer] for 5 years. 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 By 1984 his grandfather was sick with Parkinsons disease. Grandfather used to own [address] around [facility]. Grandpa of end-stage complications of Parkinson's disease. Once his grandfather he never left and has been living here since. He has great memories of coming over from [place] when he was a kid. [place] he stayed. He lives alone. 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 Is close to his brother who lives in [place]. Still independent with functional status and drives a car, does his own activities of daily living, and pays his own bills. Smoked 2 packs per day starting around the age of 16. And smoked for about 10 years and quit in 1967. 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 He quit the alcohol and cocaine in 1984. He did not do heroin, LSD, methamphetamines. - Substance History Use: Uses substance without health or social issues: NONE Abuse: Recurrent use of substance despite neg consequences: NONE Dependence: Experiences withdrawal or developed tolerances: NONE - POLST Patient has POLST: No POLST Status: DNR Meds/Allgy - Home Medications Home Medications: Ambulatory Orders Medication Instructions Recorded Confirmed Aspirin Chewable [St Dylan 81 mg PO DAILY 03/17/13 05/11/18 Aspirin] Atenolol [Tenormin] 75 mg PO DAILY 03/17/13 05/11/18 Cholecalciferol (Vitamin D3) 2,000 unit PO DAILY 03/17/13 05/11/18 [Vitamin D-3] Iron 18 mg PO DAILY 03/17/13 05/11/18 Omeprazole [PriLOSEC] 20 mg PO DAILY 03/17/13 05/11/18 Simvastatin 40 mg PO DAILY 03/17/13 05/11/18 Dexamethasone 4 mg PO BID MDD Day prior & day 09/14/17 05/11/18 after chemo Potassium Chloride 10 meq PO DAILY #15 tablet.er 11/09/17 05/11/18 Magnesium Oxide [Mag Ox] 800 mg PO DAILY 11/17/17 05/11/18 Spironolactone 25 mg PO DAILY 11/17/17 05/11/18 Fluticasone/Salmeterol [Advair Hfa 2 puffs IH BID 12/15/17 05/11/18 115-21 Mcg Inhaler] Fluticasone [Flonase] 1 sprays KIKE DAILY PRN 03/31/18 05/11/18 LORazepam [Lorazepam] 0.5 - 1 mg PO Q6HR PRN 03/31/18 05/11/18 Ondansetron HCl [Zofran] 8 mg PO Q8HR PRN 03/31/18 05/11/18 Prochlorperazine Maleate 10 mg PO Q6HR PRN 03/31/18 05/11/18 [Compazine] - Allergies Allergies/Adverse Reactions: Allergies Allergy/AdvReac Type Severity Reaction Status Date / Time No Known Drug Allergies Allergy Verified 05/20/18 15:49 Review of Systems - Constitutional Constitutional: reports: Fatigue, Malaise, Poor appetite (Waxes and wanes. Does not eat very well. Really dependent on where he is with his chemotherapy), Weight loss (He lost 30 pounds when he was first ill. He is continued to lose weight. Loses a few pounds every month with chemotherapy.) - Eyes Eyes: reports: Blurred vision (at times). denies: Pain, Irritation, Amaurosis - Ears, Nose & Throat Ears, Nose & Throat: reports: Vertigo (when he rolls over in bed). denies: Ear pain, Hearing loss, Hearing aids, Tinnitus, Nasal congestion, Postnasal drainage, Sore throat - Cardiovascular Cariovascular: reports: Irregular heart rate (in the past, work up neg), Chest pain (last year,ETT neg), Exertional dyspnea, Decr. exercise tolerance. denies: Palpitations, Lightheadedness, Syncope - Respiratory Respiratory: reports: Cough (Daily. It was very severe 1 he was first diagnosed. The severity of it has lessened over time but he still has it on a daily basis. Sometimes the spasms will take his breath away. No hemoptysis.), Wheezing, SOB at rest (If he just had chemotherapy.), SOB with exertion, Pleuritic pain (Between his shoulder blades. He has been told that that is from the chemotherapy.). denies: Sputum production, Apnea, Stridor - Gastrointestinal Gastrointestinal: reports: Abdominal pain (Across the suprapubic area from left to right that is occasionally sharp and stabbing but is mainly dull and cramping), Abdominal distention (Mild and associated with just bloating and constipation), Constipation, Diarrhea, Rectal bleeding, Bloody stools, Nausea, Poor appetite - Genitourinary Genitourinary: reports: Nocturia. denies: Dysuria, Frequency - Musculoskeletal Musculoskeletal: reports: Back pain (Between his shoulder blades), Joint pain (stiff with am movement). denies: Muscle pain - Integumentary Integumentary: denies: Rash, Pruritis, Lesions, Dryness - Neurological Neurological: reports: General weakness, Headache (This week that he associates with Keytruda), Dizziness. denies: Focal weakness, Memory problems, Pre- existing deficit, Abnormal gait, Seizures, Incoordination - Psychiatric Psychiatric: denies: Depression, Anxiety, Suicidal - Endocrine Endocrine: denies: Polyuria, Polydypsia, Polyphagia - Hematologic/Lymphatic Hematologic/Lymphatic: reports: Anemia (for years and EGD and c scope done 02/2013). denies: Bruising, Petechiae Exam - Vital Signs Reviewed Vital Signs: Yes Vital Signs: Vital Signs x48h Temp Pulse Resp BP Pulse Ox 05/20/18 19:17 26 H 111/82 H 99 05/20/18 19:06 80 100 05/20/18 18:29 85 16 163/85 H 98 05/20/18 17:24 84 18 123/81 H 97 05/20/18 16:08 85 17 106/72 100 05/20/18 15:43 36.5 C 94 16 128/85 H 100 - Physical Exam General Appearance: positive: No acute distress, Alert, Other (Cachectic white male who looks stated age with fast pressured speech at times interrupted by spasmodic coughing) Eyes Bilateral: positive: PERRL, EOMI ENT: positive: Pharynx nml Neck: positive: No JVD. negative: Stiff neck, Carotid bruit Respiratory: positive: Chest non-tender, No respiratory distress, Rales (Right lung base that come and go depending on the force of his cough), Rhonchi (Right midlung field and right upper lung field) Cardiovascular: positive: Regular rate & rhythm, Systolic murmur. negative: Gallop/S4, Friction rub Peripheral Pulses: positive: 1+ Abdomen: positive: Nml bowel sounds, Other (Aching over the left lower quadrant.). negative: Guarding, Rebound, Hepatomegaly, Splenomegaly Skin: positive: Warm, Dry, Pallor Extremities: positive: Non-tender, Full ROM, No pedal edema Neurologic/Psychiatric: positive: Oriented x3, CN's nml (2-12), Motor nml Conclusion/Plan - Problem List (1) Diverticulitis Conclusion/Plan: pesenting as lower abd cramping this week after use of Miralax for constipation in a patient who is getting carboplatinum and keytruda, mild LLQ ache, previous hx of diverticulosis and has no fever, WBC is 4. CT confirms the diverticulitis Plan: Admit inpatient status NPO IV abx with Unasyn Day #1 Blood cultures done. (2) Non-small cell lung cancer (NSCLC) Conclusion/Plan: with malignant pleural effusion diagnosed 01/2017. CT PET negative negative for mets 03/2017. Port placed for palliative chemo. Being followed by Dr. No in the [facility]. Plan: Advanced care planning discussion dictated in separate document Qualifiers: Laterality: right Qualified Code(s): C34.91 - Malignant neoplasm of unspecified part of right bronchus or lung (3) HTN (hypertension) Conclusion/Plan: controlled. resume usual meds. Qualifiers: Hypertension type: essential hypertension Qualified Code(s): I10 - Essential (primary) hypertension (4) Barretts esophagus Conclusion/Plan: with hx of anemia. Anemia stable on chemo. Resume proton pump inhibitor. Qualifiers: Ramachandran's esophagus type: with dysplasia of unspecified degree Qualified Code(s): K22.719 - Ramachandran's esophagus with dysplasia, unspecified; K22.71 - Ramachandran's esophagus with dysplasia (5) Cough Conclusion/Plan: With thoracic back pain between shoulder blades. This is a symptom that I feel is probably associated with his pleural effusion, hilar adenopathy, and cancer diagnosis. Although he does not have severe pain he controls cough with oxycodone. That will be continued while here. 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 Continue his oral iron therapy. At this time he is not within criteria to transfuse. While he is weak and dyspneic, the service a chronic phenomena with his cycling of his chemotherapy. He does not have hypoxemia, he is not tachycardic, and as such I do not feel he needs to be transfused at this time. 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: pancytopenia, antineoplastic chemotherapy-induced Qualified Code(s): D61.810 - Antineoplastic chemotherapy induced pancytopenia; T45.1X5A - Adverse effect of antineoplastic and immunosuppressive drugs, initial encounter; T45.1X5A - A dverse effect of antineoplastic and immunosuppressive drugs, initial encounter (7) Hyperglycemia, drug-induced Conclusion/Plan: He takes dexamethasone for his chemotherapy. He is not on it on a daily basis. He does not have a history of diabetes. Check A1c in the morning. I will not put him on sliding scale insulin or glucose checks at this time. (8) Hyponatremia Conclusion/Plan: Mild. Without symptoms. Attributed to lack of p.o. intake or fluid intake. He is going to be hydrated with 0.9 normal saline for 2 L. Check sodium daily. - Lab Results Fish Bones: 05/20/18 23:02 05/20/18 15:55 - Diagnostic Imaging Results Diagnostic Imaging Results Comments: CT of abdomen: Liver: Stable subcentimeter liver low densities, likely cysts. Gallbladder/Bile Ducts: Calcified gallstones. No dilated ducts. Spleen: Normal. Pancreas: Normal. Adrenal Glands: Normal. Kidneys: Normal. No masses or hydronephrosis. Peritoneal Cavity/Bowel: Advanced diverticulosis. Wall thickening in the lower left colon with adjacent fat stranding. No free fluid, free air or adenopathy. No masses. The appendix is well visualized and normal. Pelvic Organs: The prostate and bladder are unremarkable. Vasculature: No aortic enlargement. Moderate atherosclerotic calcification. Bones: Degenerative disk disease and facet arthropathy in the lower lumbar spine. Other: None. IMPRESSION: 1. Uncomplicated left lower quadrant diverticulitis. 2. Calcified gallstones. - EKG Results EKG Interpreted Independently: No EKG Comparison: Unchanged from prior EKG EKG Findings: NSR. LAFB, poor R wave progression. Core Measures - Anticipated LOS I expect patient to be DC'd or transferred within 96 hours.: Yes - DVT/VTE - Prophylaxis VTE/DVT Device ordered at admit?: Yes
[2018-05-20] MEDS ORDERED: CIPROFLOXACIN 400 MG/200 ML 200 ML IV SCH (20:00)
[2018-05-20] MEDS: SODIUM CHLORIDE 0.9% 1,000 ML IV SCH (20:30)
[2018-05-20] MEDS: metroNIDAZOLE 500 MG/100 ML 500 MG/100 ML BAG IV SCH (20:30)
[2018-05-20] MEDS: SODIUM CHLORIDE FLUSH 0.9% 10 ML SYRINGE IVP PRN ×2 (20:30→21:37)
[2018-05-20] MEDS: ONDANSETRON 4 MG/2 ML VIAL IVP PRN (20:31)
[2018-05-20] MEDS ORDERED: DEXAMETHASONE 4 MG TABLET PO SCH (21:00)
[2018-05-20] MEDS: ATORVASTATIN 10 MG TABLET PO SCH (21:35)
[2018-05-20] MEDS: PANTOPRAZOLE 40 MG VIAL IVP SCH (21:36)
[2018-05-20] MEDS: CIPROFLOXACIN 400 MG/200 ML 200 ML IV SCH (21:37)
[2018-05-20] MEDS ORDERED: ALBUTEROL NEB 2.5 MG/3 ML INH PRN (22:00)
[2018-05-20] MEDS: oxyCODONE 5 MG TABLET PO PRN (23:09)
[2018-05-20 23:10] LABS: BASOPHILS % (AUTO) 0.2 %; EOSINOPHILS % (AUTO) 0.6 %; HGB - HEMOGLOBIN 8.8 g/dL (14.0-18.0); LYMPHOCYTES # (AUTO) 0.6 10^3/uL (1.5-3.5); LYMPHOCYTES % (AUTO) 19.3 %; MEAN CORPUSCULAR HEMOGLOBIN 29.1 pg (27.0-31.0); MEAN CORPUSCULAR HGB CONC 33.6 g/dL (32.0-36.0); MEAN CORPUSCULAR VOLUME 86.8 fL (80.0-94.0); MEAN PLATELET VOLUME 6.9 fL (7.4-11.4); MONOCYTES # (AUTO) 0.5 10^3/uL (0.0-1.0); MONOCYTES % (AUTO) 18.1 %; NEUTROPHILS # (AUTO) 1.8 10^3/uL (1.5-6.6); NEUTROPHILS % (AUTO) 61.8 %; PLT - PLATELET COUNT 107 10^3/uL (130-450); RED BLOOD COUNT 3.02 10^6/uL (4.70-6.10); RED CELL DISTRIBUTION WIDTH 19.2 % (12.0-15.0)
[2018-05-20 23:36] LABS: PLATELET ESTIMATE, MANUAL DECREASED (<130,000) (NORMAL); PLATELET MORPHOLOGY NORMAL APPEARANCE (NORMAL)
--- NOTE | 2018-05-21 00:47 | ADVANCE CARE PLANNING NOTE ---
Advance Care Planning - Date/Time Date: 05/20/18 Time: 23:00 - Purpose of encounter Text: To establish his understanding of the disease, and what his wishes are with regards to treatment - Parties in attendance Parties in attendance: Patient and hospitalist, Dr. Macedo - Decisional capacity Decisional capacity of: Patient is normal. 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 He left [place] at the age of 20 and went into the [employer] in [place] until he returned here in 1984. When he was in [place] he got a girl at the age of 20. her. Had one child with her. her. a second time when he got his second girlfriend and this time had twin boys. He her. third time and was by the age of 30. He is not in contact with any of his children. After he got out of the [employer] he had a very colorful life. 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 He managed [employer] for 5 years. 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 By 1984 his grandfather was sick with Parkinsons disease. Grandfather used to own [address] around [facility]. Marlee of end-stage complications of Parkinson's disease. Once his grandfather he never left and has been living here since. He has great memories of coming over from [place] when he was a kid. [place] he stayed. He lives alone. 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 Is close to his brother who lives in [place]. Still independent with functional status and drives a car, does his own activities of daily living, and pays his own bills. Smoked 2 packs per day starting around the age of 16. And smoked for about 10 years and quit in 1967. 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 He quit the alcohol and cocaine in 1984. He did not do heroin, LSD, methamphetamines. Last spring 2016 he noted that he was not having much appetite and over the course of a few months lost close to 30 pounds. He was developing a nagging cough. He went to see his primary care provider who told him he had allergies. So he changed practice and went to see a different provider who promptly did a CAT scan of his chest. CAT scan confirmed the lung mass. He then went to be evaluated for surgical opinion at [facility] who recommended a thoracentesis for diagnosis. 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 The patient is really angry about all of this. He feels that he lost anywhere from 4-6 months of time where he could have been actively treated. Even though he was a stage IV lung cancer at the time of diagnosis, he feels that if he been treated earlier, he would have had longer time. Right now he is getting chemotherapy about once a week. It is a carboplatinum type therapy. He was supposed to be getting [facility]tr[facility] but [facility]. That did not get authorized until this last month. That makes him angry as well. He is being followed by Vesna No from [facility] oncology. She describes him as metastatic lung cancer involving the right upper lobe of the lung with malignant pleural effusion. EGFR, alkaline phosphatase negative. PDL1 10% to 20%. Currently on carboplatin, Alimta and pembrolizumab. He initially received 4 cycles of carboplatinum, Alimta, Avastin followed by maintenance treatment of Alimta and Avastin for another 4 cycles. Given progression with last CAT scan he was switched to carboplatinum, Alimta, and Pembrolizumab, He is to get 4 more cycles of this and then do a restaging CAT scan. He is chronically short of breath. Has a chronic cough. He is fatigued with anemia. The coughing was so severe it made his inguinal hernia get enlarged and he had an inguinal hernia repair February 14. His appetite is poor. Really does not eat very well because of it. His mouth sometimes gets raw but he has not had any ulcers, and he has not lost his hair. He knows that he has a terminal illness. He is amazed that he is gotten a year of life after his diagnosis. He has definite plans when "bad days outweigh his good days". He is well aware of longtime illness with severe deterioration looks like. He remembers his grandfather's quite vividly. He never wants to end up that way. He never wants anybody to have to take care of him. So far he has managed to go fishing and get 180 pounds of fish that he reeled in on his own. He went hunting last May the way he always does with friends. He plans on going hunting again this coming May. In spite of all of his illness, he has great moments with family and friends. When he feels like he is too weak to take care of himself anymore, and it is not safe for him to be in his own home, he will "take care of it on his own". He plans on taking a bunch of pills and then going to sleep. He is aware of [facility]'s with dignity legislation. He may or may not take advantage of it depending on how he feels. He plans on discussing all of this with Dr. Nyasia Maldonado. 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 He is getting ongoing palliative chemotherapy since June 2017 and has had some response with tumor shrinkage. He has constant daily cough. Constant daily dyspnea on exertion that waxes and wanes. The first 2 weeks after chemo treatment, he is pretty miserable with a cough and shortness of breath. Fatigue. By the third week it improves, appetite gets a little bit better, food taste better, and then he gets another course of chemotherapy. He has alternating constipation and diarrhea. He will get so stopped up that he has to take laxatives and then for 2 days he sits on the thrown. Recently the [place] finally authorized him to go on Keytruda. He is been taking carboplatinum without the Keytruda. Keytruda got added with his last treatment. He found his constipation to be much more severe at this time around. He started taking MiraLAX. Gave him some cramping this week. So he stopped the MiraLAX and he was better for the course of the day. But he was still constipated so he resumed the MiraLAX on Wednesday (today is Wednesday). All this week he has had lower pelvic cramping that cuts across his suprapubic area. The cramping was getting worse since he resumed the MiraLAX on Wednesday. Today he had bright red blood per rectum with a large bloody bowel movement. Sharpness to the pain that was worse. And he came in to the ER after speaking to the [facility] clinic. He has been evaluated by the emergency room doctor and has no fever, a white c ell count of 4, normal vital signs, and minimal abdominal pain without peritoneal findings. He does have a headache that is new over the last 3 weeks but he attributes it to the Keytruda. But CT scan confirms diverticulitis. He does have known severe diverticular disease. Because he has anemia, he had an EGD and colonoscopy in February 2013. The colonoscopy shows extensive sigmoid diverticulosis and internal hemorrhoids. The EGD shows a moderate size hiatal hernia, Ramachandran's esophagus, and fundal polyps. To his knowledge he has never had any problems with diverticular disease symptoms until now. He is now placed in acute inpatient status for the treatment of his diverticulitis. History - Past Medical History Cardiovascular: reports: Hypertension, High cholesterol, Coronary artery disease ( presented as chest pain and had ETT, resulted in ACB 2011. He has not had any cp since and no ETT since then either. ), Other (irregular heart beat in the past) Respiratory: reports: COPD, Other (malignant pleural effusion) Neuro: reports: None Endocrine/Autoimmune: reports: None GI: reports: GERD (EGD 02/2013 with Ramachandran's esophagus, stomach with fundal polyps), Hiatal hernia (moderate size on EGD 02/2013), Hemorrhoids (internal seen on C scope 02/2013), Other (extensive sigmoid diverticulosis 02/2013) : reports: None HEENT: reports: Glaucoma, Chronic hearing loss Psych: reports: None Musculoskeletal: reports: Osteoarthritis MRSA Hx?: No Other Past Medical History: lung CA - Past Surgical History General: reports: Colonoscopy, EGD, Other (Right inguinal hernia repair 01/2018) Ortho: reports: Arthroscopic surgery (right shoulder), Other (right ankle distal tib fib 02/2010) Cardiovascular: reports: CABG Derm: reports: Other - Goals of Care Goals of care determinations: At this point, he feels that his quality of life is quite good. Even though he is losing weight, has bad appetite, bad bowels, he is able to do things that are meaningful to him like his fishing and is hunting. He is still able to work almost full-time. As long as he is able to do those things he wants to keep ongoing with treatment. Although he is not happy about being here for diverticulitis, he wants that treatment being done. Even if he had to go to surgery he would be willing to do surgery for this. At some time down the road, he will become weaker, so tired that he cannot take care of himself, and he will make appropriate plans at that time. He is very clear that he does not want a prolonged illness at the end of life. He wants to live as much as he can and do as much as he can until he cannot. When he becomes so weak that he cannot leave his house he will discuss with Dr. Maldonado what he needs to do next. He is not interested in the idea of palliative care or hospice at this time. He is very clear that he does not want heroic measures. If we have taken care of him for an illness and he is not getting better and he progresses to dying, to let him go. DO NOT RESUSCITATE, DO NOT INTUBATE. - Plan Plan: At this time to continue seeing oncology for ongoing palliative treatment. Follow-up with his primary care provider about future wishes. - Code Status Code Status: Do Not Attempt Resuscitation - Time Spent on Advance Care Planning Time spent on advance care plannin minutes
[2018-05-21] MEDS: SODIUM CHLORIDE FLUSH 0.9% 10 ML SYRINGE IVP SCH ×3 (01:51→16:44)
[2018-05-21] MEDS: metroNIDAZOLE 500 MG/100 ML 500 MG/100 ML BAG IV SCH ×3 (04:02→19:49)
[2018-05-21] MEDS ORDERED: SODIUM CHLORIDE FLUSH 0.9% 10 ML SYRINGE ONE (05:00)
[2018-05-21 06:05] LABS: BASOPHILS % (AUTO) 0.3 %; EOSINOPHILS % (AUTO) 0.6 %; HGB - HEMOGLOBIN 8.3 g/dL (14.0-18.0); LYMPHOCYTES # (AUTO) 0.5 10^3/uL (1.5-3.5); LYMPHOCYTES % (AUTO) 19.4 %; MEAN CORPUSCULAR HGB CONC 33.4 g/dL (32.0-36.0); MEAN CORPUSCULAR VOLUME 86.9 fL (80.0-94.0); MEAN PLATELET VOLUME 7.2 fL (7.4-11.4); MONOCYTES # (AUTO) 0.5 10^3/uL (0.0-1.0); MONOCYTES % (AUTO) 22.4 %; NEUTROPHILS # (AUTO) 1.4 10^3/uL (1.5-6.6); NEUTROPHILS % (AUTO) 57.3 %; PLT - PLATELET COUNT 94 10^3/uL (130-450); RED BLOOD COUNT 2.87 10^6/uL (4.70-6.10); RED CELL DISTRIBUTION WIDTH 19.6 % (12.0-15.0); WHITE BLOOD COUNT 2.4 x10^3/uL (4.8-10.8)
[2018-05-21 06:07] LABS: INR 1.2 (0.8-1.2); PT - PROTHROMBIN TIME 13.8 secs (9.9-12.6)
[2018-05-21] MEDS: oxyCODONE 5 MG TABLET PO PRN (06:15)
[2018-05-21 06:20] LABS: ALBUMIN 2.6 g/dL (3.2-5.5); ALBUMIN/GLOBULIN RATIO 0.9 (1.0-2.2); BILIRUBIN,TOTAL 0.7 mg/dL (0.2-1.0); CREATININE 0.8 mg/dL (0.6-1.2); TOTAL PROTEIN 5.4 g/dL (6.7-8.2)
[2018-05-21 06:39] LABS: PLATELET ESTIMATE, MANUAL DECREASED (<130,000) (NORMAL); PLATELET MORPHOLOGY NORMAL APPEARANCE (NORMAL)
[2018-05-21] MEDS: SODIUM CHLORIDE 0.9% 1,000 ML IV SCH ×3 (06:46→23:07)
[2018-05-21] MEDS ORDERED: TIOTROPIUM INHALER INH SCH (07:00)
[2018-05-21] MEDS ORDERED: NON FORMULARY MED (Simvastatin [Simvastatin] 40 MG) PO SCH (09:00)
[2018-05-21] MEDS: CHOLECALCIFEROL 1,000 UNIT TABLET PO SCH (09:28)
[2018-05-21] MEDS: ATENOLOL 25 MG TABLET PO SCH (09:28)
[2018-05-21] MEDS: CIPROFLOXACIN 400 MG/200 ML 200 ML IV SCH ×2 (09:45→21:03)
[2018-05-21] MEDS: PANTOPRAZOLE 40 MG VIAL IVP SCH ×2 (09:46→21:02)
[2018-05-21] MEDS: SODIUM CHLORIDE FLUSH 0.9% 10 ML SYRINGE IVP PRN ×2 (09:46→22:50)
[2018-05-21] MEDS: MAGNESIUM OXIDE 400 MG TABLET PO SCH (09:47)
[2018-05-21] MEDS: POTASSIUM CHLORIDE 10 MEQ CAPSULE PO SCH (09:47)
[2018-05-21] MEDS: POLYETHYLENE GLYCOL 3350 17 GM PACKET PO SCH (09:50)
[2018-05-21] MEDS: SPIRONOLACTONE 25 MG TABLET PO SCH (10:26)
[2018-05-21] MEDS: ONDANSETRON 4 MG/2 ML VIAL IVP PRN (10:30)
[2018-05-21 12:06] LABS: BASOPHILS % (AUTO) 0.5 %; EOSINOPHILS % (AUTO) 0.6 %; LYMPHOCYTES # (AUTO) 0.5 10^3/uL (1.5-3.5); MEAN CORPUSCULAR HEMOGLOBIN 29.3 pg (27.0-31.0); MEAN CORPUSCULAR HGB CONC 33.8 g/dL (32.0-36.0); MEAN CORPUSCULAR VOLUME 86.6 fL (80.0-94.0); MEAN PLATELET VOLUME 7.2 fL (7.4-11.4); MONOCYTES # (AUTO) 0.6 10^3/uL (0.0-1.0); MONOCYTES % (AUTO) 23.6 %; NEUTROPHILS # (AUTO) 1.4 10^3/uL (1.5-6.6); NEUTROPHILS % (AUTO) 56.3 %; PLT - PLATELET COUNT 88 10^3/uL (130-450); RED BLOOD COUNT 2.72 10^6/uL (4.70-6.10); RED CELL DISTRIBUTION WIDTH 19.3 % (12.0-15.0); WHITE BLOOD COUNT 2.5 x10^3/uL (4.8-10.8)
--- NOTE | 2018-05-21 12:52 | PROVIDER PROGRESS NOTE ---
Assessment/Plan - Problem List (1) Diverticulitis Assessment/Plan: pesenting as lower abd cramping this week after use of Miralax for constipation in a patient who is getting carboplatinum and keytruda, mild LLQ ache, previous hx of diverticulosis and has no fever, WBC is 4. CT confirms the diverticulitis Patient placed on clear liquid diet Getting IVFs, IV pain meds and IV antiemetics On IV cipro and flagyl for diverticulitis given immunocomprimised status Slightly improved today WBC continues to be low and trending down likely secondary to chemo (2) Non-small cell lung cancer (NSCLC) Conclusion/Plan: with malignant pleural effusion diagnosed 01/2017. CT PET negative negative for mets 03/2017. Port placed for palliative chemo. Being followed by Dr. No in the [facility]. Plan: Patient is DNR Will continues with treatment outpatient once treatment for diverticulitis is completed Qualifiers: Laterality: right Qualified Code(s): C34.91 - Malignant neoplasm of unspecified part of right bronchus or lung (3) HTN (hypertension) Conclusion/Plan: controlled. on home meds Qualifiers: Hypertension type: essential hypertension Qualified Code(s): I10 - Essential (primary) hypertension (4) Barretts esophagus Conclusion/Plan: Resume proton pump inhibitor. Stable Qualifiers: Ramachandran's esophagus type: with dysplasia of unspecified degree Qualified Code(s): K22.719 - Ramachandran's esophagus with dysplasia, unspecified; K22.71 - Ramachandran's esophagus with dysplasia (5) Cough Conclusion/Plan: With thoracic back pain between shoulder blades. This is a symptom that I feel is probably associated with his pleural effusion, hilar adenopathy, and cancer diagnosis. Although he does not have severe pain he controls cough with oxycodone. That will be continued while here. 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 Continue his oral iron therapy. At this time he is not within criteria to transfuse. While he is weak and dyspneic, the service a chronic phenomena with his cycling of his chemotherapy. He does not have hypoxemia, he is not tachycardic, and as such I do not feel he needs to be transfused at this time. Patient had 3 bloody BMs prior to coming to the ER but has had none since being admitted. His Hb is being monitored q6 hours for 24 hours and is decreasing but likely secondary to BM suppression from chemo. 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: pancytopenia, antineoplastic chemotherapy-induced Qualified Code(s): D61.810 - Antineoplastic chemotherapy induced pancytopenia; T45.1X5A - Adverse effect of antineoplastic and immunosuppressive drugs, initial encounter; T45.1X5A - Adverse effect of antineoplastic and immunosuppressive drugs, initial encounter (7) Hyperglycemia, drug-induced Conclusion/Plan: Resolved Dexamethasone discontinued (8) Hyponatremia Conclusion/Plan: Resolved - Current Meds Current Meds: Current Medications Generic Name Dose Route Start Last Admin Trade Name Freq PRN Reason Stop Dose Admin Atenolol 75 mg 05/21/18 09:00 05/21/18 09:28 Tenormin PO 75 mg DAILY HASEEB Administration Atorvastatin Calcium 20 mg 05/20/18 21:00 05/20/18 21:35 Lipitor PO Not Given QPM HASEEB Cholecalciferol 2,000 unit 05/21/18 09:00 05/21/18 09:28 Vitamin D3 PO 2,000 unit DAILY HASEEB Administration Metronidazole 500 mg in 100 mls @ 100 mls/hr 05/20/18 20:00 05/21/18 12:05 Flagyl 500 Mg/100 Ml IV 100 mls/hr Q8H HASEEB Administration Sodium Chloride 1,000 mls @ 100 mls/hr 05/20/18 19:00 05/21/18 09:44 Normal Saline 0.9% IV 100 mls/hr .Q10H HASEEB Administration Ciprofloxacin 200 mls @ 200 mls/hr 05/20/18 21:00 05/21/18 10:45 Cipro 400 Mg/200 Ml IV Infused Q12H HASEEB Infusion Magnesium Oxide 800 mg 05/21/18 09:00 05/21/18 09:47 Mag Ox PO 800 mg DAILY HASEEB Administration Ondansetron HCl 4 mg 05/20/18 18:52 05/21/18 10:30 Zofran Inj IVP 4 mg Q6HR PRN Administration Nausea / Vomiting Oxycodone HCl 10 mg 05/20/18 18:52 05/21/18 06:15 Roxicodone PO 10 mg Q4HR PRN Administration Pain 8 to 10 Pantoprazole Sodium 40 mg 05/20/18 21:00 05/21/18 09:46 Protonix IVP 40 mg BID HASEEB Administration Polyethylene Glycol 17 gm 05/21/18 09:00 05/21/18 09:50 Miralax PO Not Given DAILY HASEEB Potassium Chloride 10 meq 05/21/18 09:00 05/21/18 09:47 Micro-K PO 10 meq DAILY HASEEB Administration Sodium Chloride 10 ml 05/20/18 18:52 05/21/18 09:46 Normal Saline Flush 0.9% IVP 10 ml PRN PRN Administration NEEDED PER PROVIDER ORDERS Sodium Chloride 10 ml 05/21/18 01:00 05/21/18 09:47 Normal Saline Flush 0.9% IVP Not Given 0100,0900,1700 HASEEB Spironolactone 25 mg 05/21/18 09:00 05/21/18 10:26 Aldactone PO 25 mg DAILY HASEEB Administration - Lab Result Lab results reviewed: Yes Fish Bone Diagrams: 05/21/18 11:50 05/21/18 05:25 - Diagnostic Imaging Results Diagnostic Imaging Results: Final report reviewed - Additional Planning Condition/Complexity: Guarded My Orders: My Active Orders 05/20/18 18:51 Fluticasone [Flonase] 0 sprays KIKE DAILY PRN LORazepam [Ativan] 0.5 mg PO Q6HR PRN 05/20/18 18:52 Acetaminophen [Tylenol] 650 mg PO Q4HR PRN Morphine Inj (Carpuject) [Morphine (Carpuject)] 2 mg IVP Q2HR PRN Ondansetron Inj [Zofran Inj] 4 mg IVP Q6HR PRN Prochlorperazine Inj [Compazine Inj] 10 mg IVP Q6HR PRN Promethazine Inj [Phenergan Inj] 25 mg IM Q6HR PRN Sodium Chloride Flush 0.9% [Normal Saline Flush 0.9%] 10 ml IVP PRN PRN Zolpidem [Ambien] 5 mg PO QPM PRN oxyCODONE [Roxicodone] 10 mg PO Q4HR PRN oxyCODONE [Roxicodone] 5 mg PO Q4HR PRN 05/20/18 18:53 Activity Orders [RC] Routine IO [RC] IOSHIFT Initiate Bowel Care Protocol [RC] .protocol Initiate Line Care Protocol [RC] QSHIFT Initiate Personal Care Protoco [RC] .protocol Oxygen Therapy [RC] .PRN Vital Signs [RC] 0800,1600,0000 Code Status [OTHERS] Routine Condition of Patient [OTHERS] Routine DVT Prophylaxis [OTHERS] Routine 05/20/18 19:00 Sodium Chloride 0.9% [Normal Saline 0.9%] 1,000 ml IV 100 mls/hr 05/20/18 20:00 metroNIDAZOLE 500 MG/100 ML [Flagyl 500 mg/100 ml] 500 mg in 100 ml IV Q8H 05/20/18 21:00 Atorvastatin [Lipitor] 20 mg PO QPM Ciprofloxacin 400 mg/200 ml [Cipro 400 mg/200 ml] 200 ml IV Q12H Pantoprazole [Protonix] 40 mg IVP BID 05/20/18 Dinner Clear Liquid Diet [DIET] 05/21/18 01:00 Sodium Chloride Flush 0.9% [Normal Saline Flush 0.9%] 10 ml IVP 0100,0900,1700 05/21/18 09:00 Atenolol [Tenormin] 75 mg PO DAILY Cholecalciferol [Vitamin D3] 2,000 unit PO DAILY Magnesium Oxide [Mag Ox] 800 mg PO DAILY Polyethylene Glycol 3350 [Miralax] 17 gm PO DAILY Potassium Chloride [Micro-K] 10 meq PO DAILY Spironolactone [Aldactone] 25 mg PO DAILY 05/21/18 17:00 CBC - COMP BLD CT W/AUTO DIFF [HEME] Q6H 05/21/18 23:00 CBC - COMP BLD CT W/AUTO DIFF [HEME] Q6H 05/22/18 05:00 CBC - COMP BLD CT W/AUTO DIFF [HEME] Q6H Plan Discussed with:: Patient Time Spent: 31-60 minutes Subjective - Subjective Patient Reports: Feeling Better, Resting Comfortably, Abdominal Pain (LLQ improving), Cough (Chronic), Nausea (Persistent), Other (No fevers or chills) Nursing Reports: No Complaints Objective Vital Signs: Vital Signs - 24 hr 05/20/18 05/20/18 05/20/18 15:43 16:08 17:24 Temperature 36.5 C Heart Rate 94 85 84 Heart Rate [ Brachial] Respiratory 16 17 18 Rate Blood Pressure 128/85 H 106/72 123/81 H Blood Pressure [Right Brachial artery] O2 Saturation 100 100 97 05/20/18 05/20/18 05/20/18 18:29 19:06 19:17 Temperature Heart Rate 85 80 Heart Rate [ Brachial] Respiratory 16 26 H Rate Blood Pressure 163/85 H 111/82 H Blood Pressure [Right Brachial artery] O2 Saturation 98 100 99 05/20/18 05/20/18 05/21/18 19:54 23:54 07:13 Temperature 36.8 C 36.6 C 36.6 C Heart Rate Heart Rate [ 88 92 86 Brachial] Respiratory 20 20 18 Rate Blood Pressure Blood Pressure 133/89 H 100/57 L 77/56 L [Right Brachial artery] O2 Saturation 95 100 91 L 05/21/18 08:57 Temperature Heart Rate Heart Rate [ 86 Brachial] Respiratory 19 Rate Blood Pressure Blood Pressure 146/69 H [Right Brachial artery] O2 Saturation 96 Oxygen O2 Source Room air I&O (Last 24 Hrs): Intake and Output Totals x24h 05/19/18 05/20/18 05/21/18 23:59 23:59 23:59 Intake Total 534.543 5591.667 Balance 668.098 8080.667 General: Alert, Oriented x3, Cooperative, No acute distress HEENT: Atraumatic, PERRLA, EOMI, Other (Dry mucus membranes) Neck: Supple, No JVD, No thyromegaly, +2 carotid pulse wo bruit, No LAD Lymphatic: no adenopathy Neuro: Alert, Non Focal, CN 2-12 Grossly Intact, Oriented Times 3 Cardiovascular: Regular rate, Normal S1, Normal S2, No murmurs Respiratory: Chest non-tender, No respiratory distress, Rales, Rhonchi Abdomen: Soft, Other (LLQ mild tenderness) Extremities: No clubbing, No cyanosis, No edema, Normal pulses Skin: No rashes, No breakdown - Results Results: Laboratory Results WBC 2.5 x10^3/uL (4.8-10.8) L 05/21/18 11:50 RBC 2.72 10^6/uL (4.70-6.10) L 05/21/18 11:50 Hgb 8.0 g/dL (14.0-18.0) L 05/21/18 11:50 Hct 23.6 % (42.0-52.0) L 05/21/18 11:50 MCV 86.6 fL (80.0-94.0) 05/21/18 11:50 MCH 29.3 pg (27.0-31.0) 05/21/18 11:50 MCHC 33.8 g/dL (32.0-36.0) 05/21/18 11:50 RDW 19.3 % (12.0-15.0) H 05/21/18 11:50 Plt Count 88 10^3/uL (130-450) L 05/21/18 11:50 MPV 7.2 fL (7.4-11.4) L 05/21/18 11:50 Neut # (Auto) 1.4 10^3/uL (1.5-6.6) L 05/21/18 11:50 Lymph # (Auto) 0.5 10^3/uL (1.5-3.5) L 05/21/18 11:50 Coles # (Auto) 0.6 10^3/uL (0.0-1.0) 05/21/18 11:50 Eos # (Auto) 0.0 10^3/uL (0.0-0.7) 05/21/18 11:50 Baso # (Auto) 0.0 10^3/uL (0.0-0.1) 05/21/18 11:50 Absolute Nucleated RBC 0.00 x10^3/uL 05/21/18 11:50 Total Counted 100 05/20/18 15:55 Band Neuts % (Manual) Not Reportable 05/20/18 23:02 Reactive Lymphs % (Man) 2 % 05/20/18 15:55 Abnorm Lymph % (Manual) Not Reportable 05/20/18 23:02 Metamyelocytes % 2 % (-0) H 05/20/18 15:55 Myelocytes % 1 % (-0) H 05/20/18 15:55 Nucleated RBC % 0.0 /100WBC 05/21/18 11:50 Neutrophils # (Manual) Not Reportable 05/20/18 23:02 Lymphocytes # (Manual) Not Reportable 05/20/18 23:02 Monocytes # (Manual) Not Reportable 05/20/18 23:02 Eosinophils # (Manual) Not Reportable 05/20/18 23:02 Basophils # (Manual) Not Reportable 05/20/18 23:02 Manual Slide Review Indicated 05/21/18 11:50 Platelet Estimate DECREASED (<130,000) (NORMAL) 05/21/18 05:25 Platelet Morphology NORMAL APPEARANCE (NORMAL) 05/21/18 05:25 RBC Morph Micro Appear 1+ ANISOCYTOSIS (NORMAL) 1+ HYPOCHROMASIA (NORMAL) 1+ MICROCYTOSIS (NORMAL) 1+ OVALOCYTES (NORMAL) 05/20/18 15:55 RBC Morph Micro Appear 1+ ANISOCYTOSIS (NORMAL) 1+ HYPOCHROMASIA (NORMAL) 1+ MICROCYTOSIS (NORMAL) 1+ MACROCYTOSIS (NORMAL) 1+ OVALOCYTES (NORMAL) 05/20/18 23:02 RBC Morph Micro Appear 1+ ANISOCYTOSIS (NORMAL) 1+ HYPOCHROMASIA (NORMAL) 1+ MICROCYTOSIS (NORMAL) 1+ MACROCYTOSIS (NORMAL) 1+ OVALOCYTES (NORMAL) 05/20/18 23:02 RBC Morph Micro Appear 1+ ANISOCYTOSIS (NORMAL) 1+ HYPOCHROMASIA (NORMAL) 1+ MICROCYTOSIS (NORMAL) 1+ MACROCYTOSIS (NORMAL) 1+ OVALOCYTES (NORMAL) 05/01 09/16 23:02 RBC Morph Micro Appear 1+ ANISOCYTOSIS (NORMAL) 1+ HYPOCHROMASIA (NORMAL) 1+ MICROCYTOSIS (NORMAL) 1+ MACROCYTOSIS (NORMAL) 1+ OVALOCYTES (NORMAL) 05/20/18 23:02 RBC Morph Micro Appear 1+ ANISOCYTOSIS (NORMAL) 1+ HYPOCHROMASIA (NORMAL) 1+ MICROCYTOSIS (NORMAL) 1+ MACROCYTOSIS (NORMAL) 1+ OVALOCYTES (NORMAL) 05/20/18 23:02 RBC Morph Micro Appear 1+ ANISOCYTOSIS (NORMAL) 1+ HYPOCHROMASIA (NORMAL) 1+ MICROCYTOSIS (NORMAL) 1+ MACROCYTOSIS (NORMAL) 2+ OVALOCYTES (NORMAL) 05/21/18 05:25 RBC Morph Micro Appear 1+ ANISOCYTOSIS (NORMAL) 1+ HYPOCHROMASIA (NORMAL) 1+ MICROCYTOSIS (NORMAL) 1+ MACROCYTOSIS (NORMAL) 2+ OVALOCYTES (NORMAL) 05/21/18 05:25 RBC Morph Micro Appear 1+ ANISOCYTOSIS (NORMAL) 1+ HYPOCHROMASIA (NORMAL) 1+ MICROCYTOSIS (NORMAL) 1+ MACROCYTOSIS (NORMAL) 2+ OVALOCYTES (NORMAL) 05/21/18 05:25 RBC Morph Micro Appear 1+ ANISOCYTOSIS (NORMAL) 1+ HYPOCHROMASIA (NORMAL) 1+ MICROCYTOSIS (NORMAL) 1+ MACROCYTOSIS (NORMAL) 2+ OVALOCYTES (NORMAL) 05/21/18 05:25 RBC Morph Micro Appear 1+ ANISOCYTOSIS (NORMAL) 1+ HYPOCHROMASIA (NORMAL) 1+ MICROCYTOSIS (NORMAL) 1+ MACROCYTOSIS (NORMAL) 2+ OVALOCYTES (NORMAL) 05/21/18 05:25 RBC Morph Micro Appear 1+ ANISOCYTOSIS (NORMAL) 1+ OVALOCYTES (NORMAL) 1+ HYPOCHROMASIA (NORMAL) 1+ MACROCYTOSIS (NORMAL) 1+ MICROCYTOSIS (NORMAL) 05/21/18 11:50 RBC Morph Micro Appear 1+ ANISOCYTOSIS (NORMAL) 1+ OVALOCYTES (NORMAL) 1+ HYPOCHROMASIA (NORMAL) 1+ MACROCYTOSIS (NORMAL) 1+ MICROCYTOSIS (NORMAL) 05/21/18 11:50 RBC Morph Micro Appear 1+ ANISOCYTOSIS (NORMAL) 1+ OVALOCYTES (NORMAL) 1+ HYPOCHROMASIA (NORMAL) 1+ MACROCYTOSIS (NORMAL) 1+ MICROCYTOSIS (NORMAL) 05/21/18 11:50 RBC Morph Micro Appear 1+ ANISOCYTOSIS (NORMAL) 1+ OVALOCYTES (NORMAL) 1+ HYPOCHROMASIA (NORMAL) 1+ MACROCYTOSIS (NORMAL) 1+ MICROCYTOSIS (NORMAL) 05/21/18 11:50 RBC Morph Micro Appear 1+ ANISOCYTOSIS (NORMAL) 1+ OVALOCYTES (NORMAL) 1+ HYPOCHROMASIA (NORMAL) 1+ MACROCYTOSIS (NORMAL) 1+ MICROCYTOSIS (NORMAL) 05/21/18 11:50 PT 13.8 secs (9.9-12.6) H 05/21/18 05:25 INR 1.2 (0.8-1.2) 05/21/18 05:25 Sodium 135 mmol/L (135-145) 05/21/18 05:25 Potassium 3.7 mmol/L (3.5-5.0) 05/21/18 05:25 Chloride 102 mmol/L (101-111) 05/21/18 05:25 Carbon Dioxide 26 mmol/L (21-32) 05/21/18 05:25 Anion Gap 7.0 (6-13) 05/21/18 05:25 BUN 19 mg/dL (6-20) 05/21/18 05:25 Creatinine 0.8 mg/dL (0.6-1.2) 05/21/18 05:25 Estimated GFR (MDRD) 94 (>89) 05/21/18 05:25 Glucose 91 mg/dL (70-100) 05/21/18 05:25 Calcium 8.0 mg/dL (8.5-10.3) L 05/21/18 05:25 Total Bilirubin 0.7 mg/dL (0.2-1.0) 05/21/18 05:25 AST 22 IU/L (10-42) 05/21/18 05:25 ALT 19 IU/L (10-60) 05/21/18 05:25 Alkaline Phosphatase 44 IU/L (42-121) 05/21/18 05:25 Troponin I < 0.04 ng/mL (<0.49) 05/20/18 15:55 B-Natriuretic Peptide 39 pg/mL (5-100) 05/20/18 15:55 Total Protein 5.4 g/dL (6.7-8.2) L 05/21/18 05:25 Albumin 2.6 g/dL (3.2-5.5) L 05/21/18 05:25 Globulin 2.8 g/dL (2.1-4.2) 05/21/18 05:25 Albumin/Globulin Ratio 0.9 (1.0-2.2) L 05/21/18 05:25 Blood Type O POSITIVE 05/20/18 16:53 Blood Type Recheck O POSITIVE 05/20/18 15:55 Antibody Screen NEGATIVE 05/20/18 16:53 - Procedures Procedures: Procedures COLONOSCOPY (03/20/13) ESOPHAGOGASTRODUODENOSCOPY [EGD] W/CLOSED BIOPSY (03/20/13) SUPPLEMENT R INGUINAL REGION WITH SYNTH SUB, OPEN APPROACH (02/07/18) ABX Reporting Has patient been on IV antibiotics over the past 48 hours?: No Current Medications - Current Medications Current Medications: Active Medications Generic Name Dose Route Start Last Admin Trade Name Freq PRN Reason Stop Dose Admin Acetaminophen 650 mg 05/20/18 18:52 Tylenol PO Q4HR PRN Pain 1 to 4 Albuterol 2.5 mg 05/20/18 22:00 INH RTQ4H PRN Wheezing Atenolol 75 mg 05/21/18 09:00 05/21/18 09:28 Tenormin PO 75 mg DAILY HAESEB Administration Atorvastatin Calcium 20 mg 05/20/18 21:00 05/20/18 21:35 Lipitor PO Not Given QPM HASEEB Cholecalciferol 2,000 unit 05/21/18 09:00 05/21/18 09:28 Vitamin D3 PO 2,000 unit DAILY HASEEB Administration Fluticasone Propionate 0 sprays 05/20/18 18:51 Flonase KIKE DAILY PRN Allergy Symptoms Metronidazole 500 mg in 100 mls @ 100 mls/hr 05/20/18 20:00 05/21/18 12:05 Flagyl 500 Mg/100 Ml IV 100 mls/hr Q8H HASEEB Administration Sodium Chloride 1,000 mls @ 100 mls/hr 05/20/18 19:00 05/21/18 09:44 Normal Saline 0.9% IV 100 mls/hr .Q10H HASEEB Administration Ciprofloxacin 200 mls @ 200 mls/hr 05/20/18 21:00 05/21/18 10:45 Cipro 400 Mg/200 Ml IV Infused Q12H HASEEB Infusion Lorazepam 0.5 mg 05/20/18 18:51 Ativan PO Q6HR PRN Nausea / Vomiting Magnesium Oxide 800 mg 05/21/18 09:00 05/21/18 09:47 Mag Ox PO 800 mg DAILY HASEEB Administration Morphine Sulfate 2 mg 05/20/18 18:52 Morphine (Carpuject) IVP Q2HR PRN Pain 8 to 10 Ondansetron HCl 4 mg 05/20/18 18:52 05/21/18 10:30 Zofran Inj IVP 4 mg Q6HR PRN Administration Nausea / Vomiting Oxycodone HCl 5 mg 05/20/18 18:52 Roxicodone PO Q4HR PRN Pain 5 to 7 Oxycodone HCl 10 mg 05/20/18 18:52 05/21/18 06:15 Roxicodone PO 10 mg Q4HR PRN Administration Pain 8 to 10 Pantoprazole Sodium 40 mg 05/20/18 21:00 05/21/18 09:46 Protonix IVP 40 mg BID HASEEB Administration Polyethylene Glycol 17 gm 05/21/18 09:00 05/21/18 09:50 Miralax PO Not Given DAILY HASEEB Potassium Chloride 10 meq 05/21/18 09:00 05/21/18 09:47 Micro-K PO 10 meq DAILY HASEEB Administration Prochlorperazine Edisylate 10 mg 05/20/18 18:52 Compazine Inj IVP Q6HR PRN Nausea / Vomiting Promethazine HCl 25 mg 05/20/18 18:52 Phenergan Inj IM Q6HR PRN Nausea / Vomiting Sodium Chloride 10 ml 05/20/18 18:52 05/21/18 09:46 Normal Saline Flush 0.9% IVP 10 ml PRN PRN Administration NEEDED PER PROVIDER ORDERS Sodium Chloride 10 ml 05/21/18 01:00 05/21/18 09:47 Normal Saline Flush 0.9% IVP Not Given 0100,0900,1700 HASEEB Spironolactone 25 mg 05/21/18 09:00 05/21/18 10:26 Aldactone PO 25 mg DAILY HASEEB Administration Zolpidem Tartrate 5 mg 05/20/18 18:52 Ambien PO QPM PRN Insomnia Aspirin Chewable [[facility] [place] Aspirin] 81 mg PO DAILY 03/17/13 Atenolol [Tenormin] 75 mg PO DAILY 03/17/13 Cholecalciferol (Vitamin D3) [Vitamin D-3] 2,000 unit PO DAILY 03/17/13 Iron 18 mg PO DAILY 03/17/13 Omeprazole [PriLOSEC] 20 mg PO DAILY 03/17/13 Simvastatin 40 mg PO DAILY 03/17/13 Dexamethasone 4 mg PO BID MDD Day prior & day after chemo 09/14/17 Magnesium Oxide [Mag Ox] 800 mg PO DAILY 11/17/17 Spironolactone 25 mg PO DAILY 11/17/17 Fluticasone/Salmeterol [Advair Hfa 115-21 Mcg Inhaler] 2 puffs IH BID 12/15/17 Fluticasone [Flonase] 1 sprays KIKE DAILY PRN 03/31/18 LORazepam [Lorazepam] 0.5 - 1 mg PO Q6HR PRN 03/31/18 Ondansetron HCl [Zofran] 8 mg PO Q8HR PRN 03/31/18 Prochlorperazine Maleate [Compazine] 10 mg PO Q6HR PRN 03/31/18
[2018-05-21 17:02] LABS: BASOPHILS % (AUTO) 0.5 %; EOSINOPHILS % (AUTO) 0.7 %; HGB - HEMOGLOBIN 7.8 g/dL (14.0-18.0); LYMPHOCYTES # (AUTO) 0.4 10^3/uL (1.5-3.5); LYMPHOCYTES % (AUTO) 20.8 %; MEAN CORPUSCULAR HEMOGLOBIN 28.9 pg (27.0-31.0); MEAN CORPUSCULAR VOLUME 87.6 fL (80.0-94.0); MEAN PLATELET VOLUME 6.9 fL (7.4-11.4); MONOCYTES # (AUTO) 0.4 10^3/uL (0.0-1.0); MONOCYTES % (AUTO) 20.7 %; NEUTROPHILS # (AUTO) 1.2 10^3/uL (1.5-6.6); NEUTROPHILS % (AUTO) 57.3 %; PLT - PLATELET COUNT 87 10^3/uL (130-450); RED BLOOD COUNT 2.68 10^6/uL (4.70-6.10); RED CELL DISTRIBUTION WIDTH 19.5 % (12.0-15.0)
[2018-05-21] MEDS: FORMOTEROL FUMARATE NEB 20 MCG/2 ML INH SCH (18:14)
[2018-05-21] MEDS: BUDESONIDE 0.5 MG/2 ML NEB INH SCH (18:14)
[2018-05-21] MEDS ORDERED: TRAVOPROST 0.004% OPHTH DROPS 2.5 ML EACHEYE SCH (21:00)
[2018-05-21] MEDS: ATORVASTATIN 10 MG TABLET PO SCH (21:02)
[2018-05-21 22:54] LABS: BASOPHILS % (AUTO) 0.3 %; EOSINOPHILS % (AUTO) 0.6 %; HGB - HEMOGLOBIN 7.5 g/dL (14.0-18.0); LYMPHOCYTES # (AUTO) 0.5 10^3/uL (1.5-3.5); LYMPHOCYTES % (AUTO) 24.3 %; MEAN CORPUSCULAR HEMOGLOBIN 29.1 pg (27.0-31.0); MEAN CORPUSCULAR HGB CONC 33.3 g/dL (32.0-36.0); MEAN CORPUSCULAR VOLUME 87.3 fL (80.0-94.0); MEAN PLATELET VOLUME 7.1 fL (7.4-11.4); MONOCYTES # (AUTO) 0.4 10^3/uL (0.0-1.0); MONOCYTES % (AUTO) 20.2 %; NEUTROPHILS # (AUTO) 1.2 10^3/uL (1.5-6.6); NEUTROPHILS % (AUTO) 54.6 %; PLT - PLATELET COUNT 84 10^3/uL (130-450); RED BLOOD COUNT 2.58 10^6/uL (4.70-6.10); RED CELL DISTRIBUTION WIDTH 19.2 % (12.0-15.0); WHITE BLOOD COUNT 2.1 x10^3/uL (4.8-10.8)
[2018-05-21 23:15] LABS: PLATELET ESTIMATE, MANUAL DECREASED (<130,000) (NORMAL); PLATELET MORPHOLOGY NORMAL APPEARANCE (NORMAL); RBC MORPHOLOGY (MULTIPLE) NORMAL APPEARANCE (NORMAL)
[2018-05-22] MEDS: SODIUM CHLORIDE FLUSH 0.9% 10 ML SYRINGE IVP SCH ×2 (01:08→08:54)
[2018-05-22] MEDS: metroNIDAZOLE 500 MG/100 ML 500 MG/100 ML BAG IV SCH (03:29)
[2018-05-22 06:11] LABS: BASOPHILS % (AUTO) 0.3 %; EOSINOPHILS % (AUTO) 0.4 %; HGB - HEMOGLOBIN 7.7 g/dL (14.0-18.0); LYMPHOCYTES # (AUTO) 0.4 10^3/uL (1.5-3.5); LYMPHOCYTES % (AUTO) 23.2 %; MEAN CORPUSCULAR HEMOGLOBIN 29.4 pg (27.0-31.0); MEAN CORPUSCULAR HGB CONC 33.6 g/dL (32.0-36.0); MEAN CORPUSCULAR VOLUME 87.5 fL (80.0-94.0); MEAN PLATELET VOLUME 7.2 fL (7.4-11.4); MONOCYTES # (AUTO) 0.4 10^3/uL (0.0-1.0); MONOCYTES % (AUTO) 19.9 %; NEUTROPHILS % (AUTO) 56.2 %; PLT - PLATELET COUNT 78 10^3/uL (130-450); RED BLOOD COUNT 2.63 10^6/uL (4.70-6.10); RED CELL DISTRIBUTION WIDTH 19.6 % (12.0-15.0)
[2018-05-22 06:14] LABS: WHITE BLOOD COUNT 1.8 x10^3/uL (4.8-10.8)
[2018-05-22 06:20] LABS: ALBUMIN 2.5 g/dL (3.2-5.5); ALBUMIN/GLOBULIN RATIO 0.9 (1.0-2.2); ALKALINE PHOSPHATASE 41 IU/L (42-121); ALT ALANINE AMINOTRANSFERASE 19 IU/L (10-60); AST ASPARTATE AMINOTRANSFERASE 24 IU/L (10-42); BILIRUBIN,TOTAL 0.5 mg/dL (0.2-1.0); BUN - BLOOD UREA NITROGEN 10 mg/dL (6-20); CALCIUM 7.7 mg/dL (8.5-10.3); CARBON DIOXIDE - CO2 25 mmol/L (21-32); CHLORIDE 104 mmol/L (101-111); CREATININE 0.6 mg/dL (0.6-1.2); GFR - MDRD 131 (>89); GLUCOSE 112 mg/dL (70-100); SODIUM 136 mmol/L (135-145); TOTAL PROTEIN 5.2 g/dL (6.7-8.2)
[2018-05-22 06:35] LABS: VBG PH 7.385 (7.31-7.41)
[2018-05-22 06:55] LABS: PLATELET ESTIMATE, MANUAL DECREASED (<130,000) (NORMAL); PLATELET MORPHOLOGY NORMAL APPEARANCE (NORMAL)
[2018-05-22 06:56] LABS: RBC MORPHOLOGY (MULTIPLE) 1+ ANISOCYTOSIS (NORMAL)
[2018-05-22] MEDS: ATENOLOL 25 MG TABLET PO SCH (08:37)
[2018-05-22] MEDS: SPIRONOLACTONE 25 MG TABLET PO SCH (08:39)
[2018-05-22] MEDS: MAGNESIUM OXIDE 400 MG TABLET PO SCH (08:40)
[2018-05-22] MEDS: CHOLECALCIFEROL 1,000 UNIT TABLET PO SCH (08:41)
[2018-05-22] MEDS: POTASSIUM CHLORIDE 10 MEQ CAPSULE PO SCH (08:41)
[2018-05-22] MEDS: CIPROFLOXACIN 400 MG/200 ML 200 ML IV SCH (08:43)
[2018-05-22] MEDS: PANTOPRAZOLE 40 MG VIAL IVP SCH (08:47)
[2018-05-22] MEDS: BUDESONIDE 0.5 MG/2 ML NEB INH SCH (08:57)
--- NOTE | 2018-05-22 08:57 | Discharge Plan ---
Discharge Plan Disposition: 01 Home, Self Care Condition: Good Prescriptions: Metronidazole [Flagyl] 500 mg PO Q8HR #15 tablet Ciprofloxacin HCl [Cipro] 500 mg PO DAILY #10 tablet Diet: Soft (Ful liquid diet for 2 days then advance to a soft diet) Activity Restrictions: Activity as Tolerated Shower Restrictions: No Driving Restrictions: No Weight Bearing: Full Weight Additional Instructions or Follow Up instructions: You presented to the emergency department with abdominal cramping and blood in your stool. You were found to have diverticulitis and were treated in the hospital with antibiotics for 2 days. You seem to be significantly improved and have had no further bloody stools. Your pain has resolved and you are tolerating oral medications. We have decided that you can be discharged home with oral antibiotics which she will take for the next 5 days to complete the course of treatment. I am also recommending that you continue on a liquid diet for the next 2 days and then advance to a soft diet until you have completed her antibiotics. Of note your counts including your white blood cell count, hemoglobin and platelet count were all trending down this is likely due to the chemotherapy that you received last week. Please follow-up with your oncologist regarding treatment of your cancer. No Smoking: If you smoke, Please STOP! Call for help. Follow-up with: RALPH FERNANDEZ MD [Primary Care Provider] -
[2018-05-22] MEDS: FORMOTEROL FUMARATE NEB 20 MCG/2 ML INH SCH (08:58)
[2018-05-22] MEDS: POLYETHYLENE GLYCOL 3350 17 GM PACKET PO SCH (08:59)
--- NOTE | 2018-05-22 09:05 | DISCHARGE SUMMARY ---
Discharge Summary Admit Date: 05/20/18 Discharge Date: 05/22/18 Discharging Provider: Guille Leo MD Primary Care Provider: Isela Maldonado MD Code Status: Do Not Attempt Resuscitation Condition at Discharge: Good Discharge Disposition: 01 Home, Self Care - DIAGNOSES Admission Diagnoses: 1. Diverticulitis 2. Non-small cell lung cancer 3. Hypertension 4. Ramachandran's esophagus 5. Cough 6. Anemia 7. Hyperglycemia, drug-induced 8. Hyponatremia Discharge Diagnoses with Status of Each Condition: 1. Diverticulitis: Improving 2. Non-small cell lung cancer: Stable 3. Hypertension: Stable 4. Ramachandran's esophagus: Stable 5. Cough: Stable 6. Pancytopenia: Guarded 7. Hyperglycemia, drug-induced: Resolved 8. Hyponatremia: Resolved - HPI History of Present Illness: He is a 78-year-old male who has quite a few complaints. Most of them are venting with regards to his frustration with how he feels things are not being handled well. The first of which is his delay in diagnosis. He had weight loss to 30 pounds, cough, and he was told he had allergies. He feels that his willa gnosis was delayed by 4 months and may be this would have impacted his overall survival. So he is angry about that. His next frustration is about how this hospital handles [facility] patients. Every time he comes here "someone is always screwing up the billing". He thinks that by now the admitting desk and the billing desk should understand how to handle [facility] patients. His point is that he is not the first patient nor will he be the last and they should figure it out quickly. His final complaint has to do with phone Chargers. His phone is . He is a busy person with lots of people that need to keep in contact with him. He does not remember their phone numbers. And he wants to know why this hospital does not have phone charges for people who do not remember to bring their own phone chargers from home. With all of that being said, we finally get to his complaint for being here. 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 He is getting ongoing palliative chemotherapy since June 2017 and has had some response with tumor shrinkage. He has constant daily cough. Constant daily dyspnea on exertion that waxes and wanes. The first 2 weeks after chemo treatment, he is pretty miserable with a cough and shortness of breath. Fatigue. By the third week it improves, appetite gets a little bit better, food taste better, and then he gets another course of chemotherapy. He has alternating constipation and diarrhea. He will get so stopped up that he has to take laxatives and then for 2 days he sits on the thrown. Recently the [facility] finally authorized him to go on Keytruda. He is been taking carboplatinum without the Keytruda. Keytruda got added with his last treatment. He found his constipation to be much more severe at this time around. He started taking MiraLAX. Gave him some cramping this week. So he stopped the MiraLAX and he was better for the course of the day. But he was still constipated so he resumed the MiraLAX on Wednesday (today is Wednesday). All this week he has had lower pelvic cramping that cuts across his suprapubic area. The cramping was getting worse since he resumed the MiraLAX on Wednesday. Today he had bright red blood per rectum with a large bloody bowel movement. Sharpness to the pain that was worse. And he came in to the ER after [place] [facility] He has been evaluated by the emergency room doctor and has no fever, a white cell count of 4, normal vital signs, and minimal abdominal pain without peritoneal findings. He does have a headache that is new over the last 3 weeks but he attributes it to the Keytruda. But CT scan confirms diverticulitis. He does have known severe diverticular disease. Because he has anemia, he had an EGD and colonoscopy in February 2013. The colonoscopy shows extensive sigmoid diverticulosis and internal hemorrhoids. The EGD shows a moderate size hiatal hernia, Ramachandran's esophagus, and fundal polyps. To his knowledge he has never had any problems with diverticular disease symptoms until now. He is now placed in acute inpatient status for the treatment of his diverticulitis. - CONSULTS | PROCEDURES Consultations: ACP Procedures: Date: 05/20/18 Time: 23:00 - Purpose of encounter Text: To establish his understanding of the disease, and what his wishes are with reg ards to treatment - Parties in attendance Parties in attendance: Patient and hospitalist, Dr. Macedo - Decisional capacity Decisional capacity of: Patient is normal. 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 He left [place] at the age of 20 and went into the [employer] in [place] until he returned here in 1984. When he was in [place] he got a girl at the age of 20. her. Had one child with her. her. a second time when he got his second girlfriend and this time had twin boys. He her. third time and was by the age of 30. He is not in contact with any of his children. After he got out of the [facility] he had a very colorful life. 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 He managed [employer] for 5 years. 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 By 1984 his grandfather was sick with Parkinsons disease. Grandfather used to own [address] around [facility]. [place] of end-stage complications of Parkinson's disease. Once his grandfather he never left and has been living here since. He has great memories of coming over from [place] when he was a kid. [place] he stayed. He lives alone. 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 Is close to his brother who lives in [place]. Still independent with functional status and drives a car, does his own activities of daily living, and pays his own bills. Smoked 2 packs per day starting around the age of 16. And smoked for about 10 years and quit in 1967. 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 He quit the alcohol and cocaine in 1984. He did not do heroin, LSD, methamphetamines. Last spring 2016 he noted that he was not having much appetite and over the course of a few months lost close to 30 pounds. He was developing a nagging cough. He went to see his primary care provider who told him he had allergies. So he changed practice and went to see a different provider who promptly did a CAT scan of his chest. CAT scan confirmed the lung mass. He then went to be evaluated for surgical opinion at [facility] who recommended a thoracentesis for diagnosis. 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 The patient is really angry about all of this. He feels that he lost anywhere from 4-6 months of time where he could have been actively treated. Even though he was a stage IV lung cancer at the time of diagnosis, he feels that if he been treated earlier, he would have had longer time. Right now he is getting chemotherapy about once a week. It is a carboplatinum type therapy. He was supposed to be getting Keytruda but the [facility] did not authorize it. That did not get authorized until this last month. That makes him angry as well. He is being followed by Vesna No from [facility] oncology. She describes him as metastatic lung cancer involving the right upper lobe of the lung with malignant pleural effusion. EGFR, alkaline phosphatase negative. PDL1 10% to 20%. Currently on carboplatin, Alimta and pembrolizumab. He initially received 4 cycles of carboplatinum, Alimta, Avastin followed by maintenance treatment of Alimta and Avastin for another 4 cycles. Given progression with last CAT scan he was switched to carboplatinum, Alimta, and Pembrolizumab, He is to get 4 more cycles of this and then do a restaging CAT scan. He is chronically short of breath. Has a chronic cough. He is fatigued with anemia. The coughing was so severe it made his inguinal hernia get enlarged and he had an inguinal hernia repair February 14. His appetite is poor. Really does not eat very well because of it. His mouth sometimes gets raw but he has not had any ulcers, and he has not lost his hair. He knows that he has a terminal illness. He is amazed that he is gotten a year of life after his diagnosis. He has definite plans when "bad days outweigh his good days". He is well aware of longtime illness with severe deterioration looks like. He remembers his grandfather's quite vividly. He never wants to end up that way. He never wants anybody to have to take care of him. So far he has managed to go fishing and get 180 pounds of fish that he reeled in on his own. He went hunting last May the way he always does with friends. He plans on going hunting again this coming May. In spite of all of his illness, he has great moments with family and friends. When he feels like he is too weak to take care of himself anymore, and it is not safe for him to be in his own home, he will "take care of it on his own". He plans on taking a bunch of pills and then going to sleep. He is aware of [facility]'s with dignity legislation. He may or may not take advantage of it depending on how he feels. He plans on discussing all of this w ith Dr. Nyasia Maldonado. 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 He is getting ongoing palliative chemotherapy since June 2017 and has had some response with tumor shrinkage. He has constant daily cough. Constant daily dyspnea on exertion that waxes and wanes. The first 2 weeks after chemo treatment, he is pretty miserable with a cough and shortness of breath. Fatigue. By the third week it improves, appetite gets a little bit better, food taste better, and then he gets another course of chemotherapy. He has alternating constipation and diarrhea. He will get so stopped up that he has to take laxatives and then for 2 days he sits on the thrown. Recently the [facility] finally authorized him to go on Keytruda. He is been taking carboplatinum without the Keytruda. Keytruda got added with his last treatment. He found his constipation to be much more severe at this time around. He started taking MiraLAX. Gave him some cramping this week. So he stopped the MiraLAX and he was better for the course of the day. But he was still c onstipated so he resumed the MiraLAX on Wednesday (today is Wednesday). All this week he has had lower pelvic cramping that cuts across his suprapubic area. The cramping was getting worse since he resumed the MiraLAX on Wednesday. Today he had bright red blood per rectum with a large bloody bowel movement. Sharpness to the pain that was worse. And he came in to the ER after speaking to [place] [facility] [place] He has been evaluated by the emergency room doctor and has no fever, a white cell count of 4, normal vital signs, and minimal abdominal pain without peritoneal findings. He does have a headache that is new over the last 3 weeks but he attributes it to the Keytruda. But CT scan confirms diverticulitis. He does have known severe diverticular disease. Because he has anemia, he had an EGD and colonoscopy in February 2013. The colonoscopy shows extensive sigmoid diverticulosis and internal hemorrhoids. The EGD shows a moderate size hiatal hernia, Ramachandran's esophagus, and fundal polyps. To his knowledge he has never had any problems with diverticular disease symptoms until now. He is now placed in acute inpatient status for the treatment of his diverticulitis. History - Past Medical History Cardiovascular: reports: Hypertension, High cholesterol, Coronary artery disease ( presented as chest pain and had ETT, resulted in ACB 2011. He has not had any cp since and no ETT since then either. ), Other (irregular heart beat in the past) Respiratory: reports: COPD, Other (malignant pleural effusion) Neuro: reports: None Endocrine/Autoimmune: reports: None GI: reports: GERD (EGD 02/2013 with Ramachandran's esophagus, stomach with fundal polyps), Hiatal hernia (moderate size on EGD 02/2013), Hemorrhoids (internal seen on C scope 02/2013), Other (extensive sigmoid diverticulosis 02/2013) : reports: None HEENT: reports: Glaucoma, Chronic hearing loss Psych: reports: None Musculoskeletal: reports: Osteoarthritis MRSA Hx?: No Other Past Medical History: lung CA - Past Surgical History General: reports: Colonoscopy, EGD, Other (Right inguinal hernia repair 01/2018) Ortho: reports: Arthroscopic surgery (right shoulder), Other (right ankle distal tib fib 02/2010) Cardiovascular: reports: CABG Derm: reports: Other - Goals of Care Goals of care determinations: At this point, he feels that his quality of life is quite good. Even though he is losing weight, has bad appetite, bad bowels, he is able to do things that are meaningful to him like his fishing and is hunting. He is still able to work almost full-time. As long as he is able to do those things he wants to keep ongoing with treatment. Although he is not happy about being here for diverticulitis, he wants that treatment being done. Even if he had to go to surgery he would be willing to do surgery for this. At some time down the road, he will become weaker, so tired that he cannot take care of himself, and he will make appropriate plans at that time. He is very clear that he does not want a prolonged illness at the end of life. He wants to live as much as he can and do as much as he can until he cannot. When he becomes so weak that he cannot leave his house he will discuss with Dr. Maldonado what he needs to do next. He is not interested in the idea of palliative care or hospice at this time. He is very clear that he does not want heroic measures. If we have taken care of him for an illness and he is not getting better and he progresses to dying, to let him go. DO NOT RESUSCITATE, DO NOT INTUBATE. - Plan Plan: At this time to continue seeing oncology for ongoing palliative treatment. Fo llow-up with his primary care provider about future wishes. - Code Status Code Status: Do Not Attempt Resuscitation - Time Spent on Advance Care Planning Time spent on advance care plannin minutes - HOSPITAL COURSE Hospital Course: (1) Diverticulitis Assessment/Plan: Presented with lower abd cramping this week after use of Miralax for constipation in a patient who is getting carboplatinum and keytruda, mild LLQ ache, previous hx of diverticulosis and has no fever, WBC is 4. CT confirms the diverticulitis Patient placed on clear liquid diet Given IVFs, IV pain meds and IV antiemetics Placed on IV cipro and flagyl for diverticulitis given immunocomprimised status Symptoms completely resolved over 2 days in the hospital Discharged home with PO cipro and flagyl for 5 days and instructed to continue with liquid diet for 2 days then transition to soft foods (2) Non-small cell lung cancer (NSCLC) Conclusion/Plan: with malignant pleural effusion diagnosed 01/2017. CT PET negative negative for mets 03/2017. Port placed for palliative chemo. Being followed by Dr. No in the [facility]. Patient is DNR Will continues with treatment outpatient once treatment for diverticulitis is completed Qualifiers: Laterality: right Qualified Code(s): C34.91 - Malignant neoplasm of unspecified part of right bronchus or lung (3) HTN (hypertension) Conclusion/Plan: controlled. on home meds Qualifiers: Hypertension type: essential hypertension Qualified Code(s): I10 - Essential (primary) hypertension (4) Barretts esophagus Conclusion/Plan: Resumed proton pump inhibitor. Stable Qualifiers: Ramachandran's esophagus type: with dysplasia of unspecified degree Qualified Code(s): K22.719 - Ramachandran's esophagus with dysplasia, unspecified; K22.71 - Ramachandran's esophagus with dysplasia (5) Cough Conclusion/Plan: With thoracic back pain between shoulder blades. This is a symptom that I feel is probably associated with his pleural effusion, hilar adenopathy, and cancer diagnosis. Although he does not have severe pain he controls cough with oxycodone. That was continued while hospitalized. (6) Pancytopenia Conclusion/Plan: Secondary to chemotherapy Trending down but stable No need for transfusion while hospitalized (7) Hyperglycemia, drug-induced Conclusion/Plan: Resolved Dexamethasone discontinued (8) Hyponatremia Conclusion/Plan: Resolved - ALLERGIES Allergies/Adverse Reactions: Allergies Allergy/AdvReac Type Severity Reaction Status Date / Time No Known Drug Allergies Allergy Verified 05/20/18 15:49 - MEDICATIONS Home Medications: Ambulatory Orders Medication Instructions Recorded Confirmed Aspirin Chewable [St Dylan 81 mg PO DAILY 03/17/13 05/21/18 Aspirin] Atenolol [Tenormin] 75 mg PO DAILY 03/17/13 05/21/18 Cholecalciferol (Vitamin D3) 2,000 unit PO DAILY 03/17/13 05/21/18 [Vitamin D3] Iron 18 mg PO DAILY 03/17/13 05/21/18 Omeprazole [PriLOSEC] 20 mg PO DAILY 03/17/13 05/21/18 Simvastatin 40 mg PO DAILY 03/17/13 05/21/18 Dexamethasone 4 mg PO BID MDD Day prior & day 09/14/17 05/21/18 after chemo Potassium Chloride 10 meq PO DAILY #15 tablet.er 11/09/17 05/21/18 Magnesium Oxide [Mag Ox] 800 mg PO DAILY 11/17/17 05/21/18 Spironolactone 25 mg PO DAILY 11/17/17 05/21/18 Fluticasone [Flonase] 1 sprays KIKE DAILY PRN 03/31/18 05/21/18 LORazepam [Lorazepam] 0.5 - 1 mg PO Q6HR PRN 03/31/18 05/21/18 Ondansetron HCl [Zofran] 8 mg PO Q8HR PRN 03/31/18 05/21/18 Prochlorperazine Maleate 10 mg PO Q6HR PRN 03/31/18 05/21/18 [Compazine] Budesonide/Formoterol Fumarate 2 puffs INH BID 05/21/18 05/21/18 [Symbicort 80-4.5 Mcg Inhaler] Travoprost 0.004% Ophth Drops 1 drops EACHEYE QPM 05/21/18 05/21/18 [Travatan Z] Ciprofloxacin HCl [Cipro] 500 mg PO DAILY #10 tablet 05/22/18 Metronidazole [Flagyl] 500 mg PO Q8HR #15 tablet 05/22/18 - PHYSICAL EXAM AT DISCHARGE General Appearance: positive: No acute distress, Alert Eyes Bilateral: positive: Normal inspection, PERRL, EOMI, No lid inflammation, Conjunctivae nml, No scleral icterus ENT: positive: ENT inspection nml, Pharynx nml, No signs of dehydration. nega tive: Purulent nasal drainage, Pharyngeal erythema, Oral lesions Neck: positive: Nml inspection, Thyroid nml, No JVD. negative: Lymphadenopathy (R), Lymphadenopathy (L), Carotid bruit, Tracheal deviation Respiratory: positive: Chest non-tender, No respiratory distress, Wheezes, Rales, Rhonchi Cardiovascular: positive: Regular rate & rhythm, No murmur, No gallop Peripheral Pulses: positive: 2+ Abdomen: positive: Non-tender, No organomegaly, Nml bowel sounds, No distention. negative: Guarding, Rebound, Hepatomegaly Back: positive: Nml inspection. negative: CVA tenderness (R), CVA tenderness (L) Skin: positive: Color nml, No rash, Warm, Dry. negative: Cyanosis, Diaphoresis, Pallor Extremities: positive: Non-tender, Full ROM, Nml appearance, No pedal edema Neurologic/Psychiatric: positive: Oriented x3, CN's nml (2-12), Motor nml, Sensation nml, Mood/affect nml - LABS Result Diagrams: 05/22/18 05:46 05/22/18 05:46 Other Lab Results: Laboratory Results WBC 1.8 x10^3/uL (4.8-10.8) L* 05/22/18 05:46 RBC 2.63 10^6/uL (4.70-6.10) L 05/22/18 05:46 Hgb 7.7 g/dL (14.0-18.0) L 05/22/18 05:46 Hct 23.0 % (42.0-52.0) L 05/22/18 05:46 MCV 87.5 fL (80.0-94.0) 05/22/18 05:46 MCH 29.4 pg (27.0-31.0) 05/22/18 05:46 MCHC 33.6 g/dL (32.0-36.0) 05/22/18 05:46 RDW 19.6 % (12.0-15.0) H 05/22/18 05:46 Plt Count 78 10^3/uL (130-450) L 05/22/18 05:46 MPV 7.2 fL (7.4-11.4) L 05/22/18 05:46 Neut # (Auto) 1.0 10^3/uL (1.5-6.6) L 05/22/18 05:46 Lymph # (Auto) 0.4 10^3/uL (1.5-3.5) L 05/22/18 05:46 Manati # (Auto) 0.4 10^3/uL (0.0-1.0) 05/22/18 05:46 Eos # (Auto) 0.0 10^3/uL (0.0-0.7) 05/22/18 05:46 Baso # (Auto) 0.0 10^3/uL (0.0-0.1) 05/22/18 05:46 Absolute Nucleated RBC 0.00 x10^3/uL 05/22/18 05:46 Total Counted 100 05/20/18 15:55 Band Neuts % (Manual) Not Reportable 05/20/18 23:02 Reactive Lymphs % (Man) 2 % 05/20/18 15:55 Abnorm Lymph % (Manual) Not Reportable 05/20/18 23:02 Metamyelocytes % 2 % (-0) H 05/20/18 15:55 Myelocytes % 1 % (-0) H 05/20/18 15:55 Nucleated RBC % 0.2 /100WBC 05/22/18 05:46 Neutrophils # (Manual) Not Reportable 05/20/18 23:02 Lymphocytes # (Manual) Not Reportable 05/20/18 23:02 Monocytes # (Manual) Not Reportable 05/20/18 23:02 Eosinophils # (Manual) Not Reportable 05/20/18 23:02 Basophils # (Manual) Not Reportable 05/20/18 23:02 Manual Slide Review Indicated 05/22/18 05:46 WBC Morphology NORMAL APPEARANCE (NORMAL) 05/22/18 05:46 Platelet Estimate DECREASED (<130,000) (NORMAL) 05/22/18 05:46 Platelet Morphology NORMAL APPEARANCE (NORMAL) 05/22/18 05:46 RBC Morph Micro Appear 1+ ANISOCYTOSIS (NORMAL) 1+ HYPOCHROMASIA (NORMAL) 1+ MICROCYTOSIS (NORMAL) 1+ MACROCYTOSIS (NORMAL) 1+ OVALOCYTES (NORMAL) 05/20/18 23:02 RBC Morph Micro Appear 1+ ANISOCYTOSIS (NORMAL) 1+ HYPOCHROMASIA (NORMAL) 1+ MICROCYTOSIS (NORMAL) 1+ MACROCYTOSIS (NORMAL) 1+ OVALOCYTES (NORMAL) 05/20/18 23:02 RBC Morph Micro Appear 1+ ANISOCYTOSIS (NORMAL) 1+ HYPOCHROMASIA (NORMAL) 1+ MICROCYTOSIS (NORMAL) 1+ MACROCYTOSIS (NORMAL) 1+ OVALOCYTES (NORMAL) 05/20/18 23:02 RBC Morph Micro Appear 1+ ANISOCYTOSIS (NORMAL) 1+ HYPOCHROMASIA (NORMAL) 1+ MICROCYTOSIS (NORMAL) 1+ MACROCYTOSIS (NORMAL) 1+ OVALOCYTES (NORMAL) 05/01 09/16 23:02 RBC Morph Micro Appear 1+ ANISOCYTOSIS (NORMAL) 1+ HYPOCHROMASIA (NORMAL) 1+ MICROCYTOSIS (NORMAL) 1+ MACROCYTOSIS (NORMAL) 2+ OVALOCYTES (NORMAL) 05/21/18 05:25 RBC Morph Micro Appear 1+ ANISOCYTOSIS (NORMAL) 1+ HYPOCHROMASIA (NORMAL) 1+ MICROCYTOSIS (NORMAL) 1+ MACROCYTOSIS (NORMAL) 2+ OVALOCYTES (NORMAL) 05/21/18 05:25 RBC Morph Micro Appear 1+ ANISOCYTOSIS (NORMAL) 1+ HYPOCHROMASIA (NORMAL) 1+ MICROCYTOSIS (NORMAL) 1+ MACROCYTOSIS (NORMAL) 2+ OVALOCYTES (NORMAL) 05/21/18 05:25 RBC Morph Micro Appear 1+ ANISOCYTOSIS (NORMAL) 1+ HYPOCHROMASIA (NORMAL) 1+ MICROCYTOSIS (NORMAL) 1+ MACROCYTOSIS (NORMAL) 2+ OVALOCYTES (NORMAL) 05/21/18 05:25 RBC Morph Micro Appear 1+ ANISOCYTOSIS (NORMAL) 1+ HYPOCHROMASIA (NORMAL) 1+ MICROCYTOSIS (NORMAL) 1+ MACROCYTOSIS (NORMAL) 2+ OVALOCYTES (NORMAL) 05/21/18 05:25 RBC Morph Micro Appear 1+ ANISOCYTOSIS (NORMAL) 1+ OVALOCYTES (NORMAL) 1+ HYPOCHROMASIA (NORMAL) 1+ MACROCYTOSIS (NORMAL) 1+ MICROCYTOSIS (NORMAL) 05/21/18 11:50 RBC Morph Micro Appear 1+ ANISOCYTOSIS (NORMAL) 1+ OVALOCYTES (NORMAL) 1+ HYPOCHROMASIA (NORMAL) 1+ MACROCYTOSIS (NORMAL) 1+ MICROCYTOSIS (NORMAL) 05/21/18 11:50 RBC Morph Micro Appear 1+ ANISOCYTOSIS (NORMAL) 1+ OVALOCYTES (NORMAL) 1+ HYPOCHROMASIA (NORMAL) 1+ MACROCYTOSIS (NORMAL) 1+ MICROCYTOSIS (NORMAL) 05/21/18 11:50 RBC Morph Micro Appear 1+ ANISOCYTOSIS (NORMAL) 1+ OVALOCYTES (NORMAL) 1+ HYPOCHROMASIA (NORMAL) 1+ MACROCYTOSIS (NORMAL) 1+ MICROCYTOSIS (NORMAL) 05/21/18 11:50 RBC Morph Micro Appear 1+ ANISOCYTOSIS (NORMAL) 1+ OVALOCYTES (NORMAL) 1+ HYPOCHROMASIA (NORMAL) 1+ MACROCYTOSIS (NORMAL) 1+ MICROCYTOSIS (NORMAL) 05/21/18 11:50 RBC Morph Micro Appear NORMAL APPEARANCE (NORMAL) 05/21/18 22:47 RBC Morph Micro Appear 1+ ANISOCYTOSIS (NORMAL) 05/22/18 05:46 PT 13.8 secs (9.9-12.6) H 05/21/18 05:25 INR 1.2 (0.8-1.2) 05/21/18 05:25 VBG pH 7.385 (7.31-7.41) 05/22/18 05:46 Ionized Calcium 1.07 mmol/L (1.15-1.33) L 05/22/18 05:46 Sodium 136 mmol/L (135-145) 05/22/18 05:46 Potassium 3.7 mmol/L (3.5-5.0) 05/22/18 05:46 Chloride 104 mmol/L (101-111) 05/22/18 05:46 Carbon Dioxide 25 mmol/L (21-32) 05/22/18 05:46 Anion Gap 7.0 (6-13) 05/22/18 05:46 BUN 10 mg/dL (6-20) 05/22/18 05:46 Creatinine 0.6 mg/dL (0.6-1.2) 05/22/18 05:46 Estimated GFR (MDRD) 131 (>89) 05/22/18 05:46 Glucose 112 mg/dL (70-100) H 05/22/18 05:46 Calcium 7.7 mg/dL (8.5-10.3) L 05/22/18 05:46 Ionized Calcium YES 05/22/18 05:46 Total Bilirubin 0.5 mg/dL (0.2-1.0) 05/22/18 05:46 AST 24 IU/L (10-42) 05/22/18 05:46 ALT 19 IU/L (10-60) 05/22/18 05:46 Alkaline Phosphatase 41 IU/L (42-121) L 05/22/18 05:46 Troponin I < 0.04 ng/mL (<0.49) 05/20/18 15:55 B-Natriuretic Peptide 39 pg/mL (5-100) 05/20/18 15:55 Total Protein 5.2 g/dL (6.7-8.2) L 05/22/18 05:46 Albumin 2.5 g/dL (3.2-5.5) L 05/22/18 05:46 Globulin 2.7 g/dL (2.1-4.2) 05/22/18 05:46 Albumin/Globulin Ratio 0.9 (1.0-2.2) L 05/22/18 05:46 Blood Type O POSITIVE 05/20/18 16:53 Blood Type Recheck O POSITIVE 05/20/18 15:55 Antibody Screen NEGATIVE 05/20/18 16:53 - DIAGNOSTIC IMAGING Diagnostic Imaging Results: Final report reviewed Diagnostic Imaging Results Comments: CT of abdomen: Liver: Stable subcentimeter liver low densities, likely cysts. Gallbladder/Bile Ducts: Calcified gallstones. No dilated ducts. Spleen: Normal. Pancreas: Normal. Adrenal Glands: Normal. Kidneys: Normal. No masses or hydronephrosis. Peritoneal Cavity/Bowel: Advanced diverticulosis. Wall thickening in the lower left colon with adjacent fat stranding. No free fluid, free air or adenopathy. No masses. The appendix is well visualized and normal. Pelvic Organs: The prostate and bladder are unremarkable. Vasculature: No aortic enlargement. Moderate atherosclerotic calcification. Bones: Degenerative disk disease and facet arthropathy in the lower lumbar spine. Other: None. IMPRESSION: 1. Uncomplicated left lower quadrant diverticulitis. 2. Calcified gallstones. - FOLLOW UP Follow Up: Patient was discharged home with oral antibiotics Cipro and Flagyl for 5 days to complete course of treatment for diverticulitis. The patient will follow up with his oncologist regarding his small cell lung cancer. He was instructed to continue a liquid diet for another 2 days and then advance to a soft diet. Patient was in stable condition at the time of discharge. - TIME SPENT Time Spent in Discharge (Minutes): 40
[2018-05-22 10:41] VITALS: BP 102/58
[2018-05-22] MEDS ORDERED: SODIUM CHLORIDE FLUSH 0.9% 10 ML SYRINGE ONE (11:32)
== END 2018-05-22 11:55 | disposition home or self-care (01) | DRG 377 ==
LOC: ED 15:35 → MS3 18:52
PROVIDERS: ADMIT Specialist; ATTEND Internal Medicine
DX: K57.33 Diverticulitis of large intestine without perforation or abscess with bleeding (principal); C34.90 Malignant neoplasm of unspecified part of unspecified bronchus or lung; D61.810 Antineoplastic chemotherapy induced pancytopenia; E87.1 Hypo-osmolality and hyponatremia; J91.0 Malignant pleural effusion; C34.11 Malignant neoplasm of upper lobe, right bronchus or lung; R64 Cachexia; I10 Essential (primary) hypertension; K59.03 Drug induced constipation; K64.9 Unspecified hemorrhoids; T45.1X5A Adverse effect of antineoplastic and immunosuppressive drugs, initial encounter; R73.9 Hyperglycemia, unspecified; T38.0X5A Adverse effect of glucocorticoids and synthetic analogues, initial encounter; K22.719 Barrett's esophagus with dysplasia, unspecified; K64.8 Other hemorrhoids; K44.9 Diaphragmatic hernia without obstruction or gangrene; E78.00 Pure hypercholesterolemia, unspecified; I25.10 Atherosclerotic heart disease of native coronary artery without angina pectoris; D50.9 Iron deficiency anemia, unspecified; J44.9 Chronic obstructive pulmonary disease, unspecified; K21.9 Gastro-esophageal reflux disease without esophagitis; Z66 Do not resuscitate; Z95.1 Presence of aortocoronary bypass graft; Z87.891 Personal history of nicotine dependence; Z79.899 Other long term (current) drug therapy; Z95.828 Presence of other vascular implants and grafts; Z79.82 Long term (current) use of aspirin; Z68.21 Body mass index [BMI] 21.0-21.9, adult
CPT/HCPCS: 36415; 71250; 74176; 80048; 80053; 82330; 83880; 84484; 85025; 85610; 86850; 86900; 86901; 93005; 94640; 96365; 99283; 99284

== ENCOUNTER 2018-05-27 15:35 | Emergency (ER) | payer OTHER ==
--- NOTE | 2018-05-27 17:24 | ED Physician Documentation ---
PD HPI DYSPNEA - Stated complaint Stated Complaint: MD sent over - Chief complaint Chief Complaint: General - History obtained from History obtained from: Patient - History of Present Illness Timing - onset: How many days ago (had been seen in ER and admitted for GI bleed and has continued with dyspnea. PMD felt it due to low blood count and referred him to ER for transfusion. Patient says "I just need a transfusion to feel better".) Timing - onset during: Light activity Timing - duration: Days Timing - details: Gradual onset, Still present Inciting event(s): Other (recent GI bleed and says the blood has stopped, fazing out of melena (still slightly dark)) Associated symptoms: No: Fever, Chest pain / discomfort Similar symptoms before: Has not had sx before Recently seen: Emergency Dept, Admitted Review of Systems Constitutional: denies: Fever, Chills Nose: denies: Rhinorrhea / runny nose, Congestion Throat: denies: Sore throat Cardiac: denies: Chest pain / pressure Respiratory: denies: Cough GI: reports: Bloody / black stool (decreasing since discharge). denies: Abdominal Pain, Nausea Neurologic: reports: Generalized weakness. denies: Focal weakness, Near syncope PD PAST MEDICAL HISTORY - Past Medical History Cardiovascular: Hypertension, High cholesterol, Coronary artery disease, Other Respiratory: COPD, Other Neuro: None Endocrine/Autoimmune: None GI: GERD, Hiatal hernia, Hemorrhoids, Other : None HEENT: Chronic hearing loss, Chronic hearing loss Psych: None Musculoskeletal: Osteoarthritis - Past Surgical History Past Surgical History: Yes General: EGD, Colonoscopy, Other Ortho: Arthroscopic surgery, Other Cardiovascular: CABG Derm: Other - Present Medications Home Medications: Ambulatory Orders Medication Instructions Recorded Confirmed RX: Aspirin Chewable [St Dylan 81 mg PO DAILY 03/17/13 05/21/18 Aspirin] RX: Atenolol [Tenormin] 75 mg PO DAILY 03/17/13 05/21/18 RX: Cholecalciferol (Vitamin D3) 2,000 unit PO DAILY 03/17/13 05/21/18 [Vitamin D3] RX: Iron 18 mg PO DAILY 03/17/13 05/21/18 RX: Omeprazole [PriLOSEC] 20 mg PO DAILY 03/17/13 05/21/18 RX: Simvastatin 40 mg PO DAILY 03/17/13 05/21/18 RX: Dexamethasone 4 mg PO BID MDD Day prior & day 09/14/17 05/21/18 after chemo RX: Potassium Chloride 10 meq PO DAILY #15 tablet.er 11/09/17 05/21/18 RX: Magnesium Oxide [Mag Ox] 800 mg PO DAILY 11/17/17 05/21/18 RX: Spironolactone 25 mg PO DAILY 11/17/17 05/21/18 RX: Fluticasone [Flonase] 1 sprays KIKE DAILY PRN 03/31/18 05/21/18 RX: LORazepam [Lorazepam] 0.5 - 1 mg PO Q6HR PRN 03/31/18 05/21/18 RX: Ondansetron HCl [Zofran] 8 mg PO Q8HR PRN 03/31/18 05/21/18 RX: Prochlorperazine Maleate 10 mg PO Q6HR PRN 03/31/18 05/21/18 [Compazine] RX: Budesonide/Formoterol Fumarate 2 puffs INH BID 05/21/18 05/21/18 [Symbicort 80-4.5 Mcg Inhaler] RX: Travoprost 0.004% Ophth Drops 1 drops EACHEYE QPM 05/21/18 05/21/18 [Travatan Z] Ciprofloxacin HCl [Cipro] 500 mg PO DAILY #10 tablet 05/22/18 Metronidazole [Flagyl] 500 mg PO Q8HR #15 tablet 05/22/18 - Allergies Allergies/Adverse Reactions: Allergies Allergy/AdvReac Type Severity Reaction Status Date / Time No Known Drug Allergies Allergy Verified 05/27/18 15:44 - Social History Does the pt smoke?: No Smoking Status: Former smoker Does the pt drink ETOH?: No Does the pt have substance abuse?: No - Immunizations Immunizations are current?: Yes - POLST Patient has POLST: No POLST Status: DNR PD ED PE NORMAL - Vitals Vital signs reviewed: Yes - General General: Alert and oriented X 3, No acute distress, Well developed/nourished - Neck Neck: Supple, no meningeal sign, No adenopathy - Cardiac Cardiac: RRR, No murmur - Respiratory Respiratory: Clear bilaterally - Abdomen Abdomen: Normal bowel sounds, Soft, Non tender, Non distended - Rectal Rectal: Deferred - Back Back: No CVA TTP - Derm Derm: Normal color, Warm and dry - Extremities Extremities: No tenderness to palpate, No edema, No calf tenderness / cord - Neuro Neuro: Alert and oriented X 3, No motor deficit, Normal speech Results - Vitals Vitals: Vital Signs - 24 hr 05/27/18 05/27/18 05/27/18 15:40 18:00 19:02 Temperature 36.5 C 36.8 C Heart Rate 91 76 78 Respiratory 24 16 16 Rate Blood Pressure 178/159 H 117/86 H 171/74 H O2 Saturation 95 99 05/27/18 05/27/18 05/27/18 19:17 19:32 19:54 Temperature 36.8 C 36.4 C L Heart Rate 77 78 79 Respiratory 16 16 16 Rate Blood Pressure 124/78 121/79 121/79 O2 Saturation 96 98 05/27/18 05/27/18 20:15 20:36 Temperature 36.5 C 36.5 C Heart Rate 73 76 Respiratory 15 15 Rate Blood Pressure 124/90 H 124/88 H O2 Saturation Oxygen O2 Source Room air - Labs Labs: Laboratory Tests 05/27/18 05/27/18 05/27/18 17:38 17:45 17:45 WBC 3.7 L RBC 2.96 L Hgb 8.7 L Hct 26.2 L MCV 88.7 MCH 29.4 MCHC 33.1 RDW 19.8 H Plt Count 103 L MPV 7.7 PT 15.1 H INR 1.4 H APTT 27.2 Sodium 137 Potassium 4.3 Chloride 103 Carbon Dioxide 25 Anion Gap 9.0 BUN 17 Creatinine 0.7 Estimated GFR (MDRD) 110 Glucose 85 Calcium 8.3 L Total Bilirubin 0.5 AST 38 ALT 40 Alkaline Phosphatase 46 Total Protein 5.9 L Albumin 3.1 L Globulin 2.8 Albumin/Globulin Ratio 1.1 Lipase 27 Blood Type Antibody Screen Crossmatch IS Only 05/27/18 05/27/18 17:45 17:45 WBC RBC Hgb Hct MCV MCH MCHC RDW Plt Count MPV PT INR APTT Sodium Potassium Chloride Carbon Dioxide Anion Gap BUN Creatinine Estimated GFR (MDRD) Glucose Calcium Total Bilirubin AST ALT Alkaline Phosphatase Total Protein Albumin Globulin Albumin/Globulin Ratio Lipase Blood Type O POSITIVE Cancelled Antibody Screen NEGATIVE Cancelled Crossmatch IS Only See Detail PD MEDICAL DECISION MAKING - ED course Complexity details: reviewed results (blood count is not below traditional transfusion maik but has comorbidities and symptomatic. PMD sent him here for unit of blood. ), considered differential, d/w patient - Sepsis Event Vital Signs: Vital Signs - 24 hr 05/27/18 05/27/18 05/27/18 15:40 18:00 19:02 Temperature 36.5 C 36.8 C Heart Rate 91 76 78 Respiratory 24 16 16 Rate Blood Pressure 178/159 H 117/86 H 171/74 H O2 Saturation 95 99 05/27/18 05/27/18 05/27/18 19:17 19:32 19:54 Temperature 36.8 C 36.4 C L Heart Rate 77 78 79 Respiratory 16 16 16 Rate Blood Pressure 124/78 121/79 121/79 O2 Saturation 96 98 05/27/18 05/27/18 20:15 20:36 Temperature 36.5 C 36.5 C Heart Rate 73 76 Respiratory 15 15 Rate Blood Pressure 124/90 H 124/88 H O2 Saturation Oxygen O2 Source Room air Departure - Departure Disposition: 01 Home, Self Care Clinical Impression: Dyspnea on effort, Symptomatic anemia Condition: Stable Record reviewed to determine appropriate education?: Yes Instructions: ED Dyspnea Shortness of Breath Follow-Up: RALPH FERNANDEZ MD [Primary Care Provider] - Comments: Continue usual medications. Follow-up with your primary care. Discharge Date/Time: 05/27/18 20:39
[2018-05-27 17:46] LABS: INR 1.4 (0.8-1.2); PT - PROTHROMBIN TIME 15.1 secs (9.9-12.6)
[2018-05-27 17:53] LABS: HGB - HEMOGLOBIN 8.7 g/dL (14.0-18.0); MEAN CORPUSCULAR HEMOGLOBIN 29.4 pg (27.0-31.0); MEAN CORPUSCULAR HGB CONC 33.1 g/dL (32.0-36.0); MEAN CORPUSCULAR VOLUME 88.7 fL (80.0-94.0); MEAN PLATELET VOLUME 7.7 fL (7.4-11.4); RED BLOOD COUNT 2.96 10^6/uL (4.70-6.10); RED CELL DISTRIBUTION WIDTH 19.8 % (12.0-15.0); WHITE BLOOD COUNT 3.7 x10^3/uL (4.8-10.8)
[2018-05-27 18:05] LABS: ALBUMIN 3.1 g/dL (3.2-5.5); ALBUMIN/GLOBULIN RATIO 1.1 (1.0-2.2); BILIRUBIN,TOTAL 0.5 mg/dL (0.2-1.0); CALCIUM 8.3 mg/dL (8.5-10.3); CREATININE 0.7 mg/dL (0.6-1.2); TOTAL PROTEIN 5.9 g/dL (6.7-8.2)
[2018-05-27 20:37] VITALS: BP 124/88
== END 2018-05-27 20:39 | disposition home or self-care (01) ==
LOC: ED 15:35
DX: R06.00 Dyspnea, unspecified (principal); D64.9 Anemia, unspecified; I10 Essential (primary) hypertension; I25.10 Atherosclerotic heart disease of native coronary artery without angina pectoris; J44.9 Chronic obstructive pulmonary disease, unspecified; Z95.1 Presence of aortocoronary bypass graft; Z79.82 Long term (current) use of aspirin; Z87.891 Personal history of nicotine dependence; Z87.19 Personal history of other diseases of the digestive system
CPT/HCPCS: 36415; 36430; 80053; 83690; 85027; 85610; 85730; 86850; 86900; 86901; 86920; 99282; 99284; P9016

== ENCOUNTER 2018-07-13 11:06 | Outpatient (CLI) | payer OTHER ==
--- NOTE | 2018-07-13 13:40 | XRAY Report ---
Reason: COUGH Procedure Date: 07/13/2018 Accession Number: [id number] / [id number] Procedure: XR - Chest 2 View X-Ray CPT Code: 66939 FULL RESULT: EXAM: CHEST RADIOGRAPHY EXAM DATE: 07/13/2018 11:14 AM. CLINICAL HISTORY: Cough. COMPARISON: INSP/EXP POST THORA 2V CXR 04/19/2018 10:39 AM. TECHNIQUE: 2 views. FINDINGS: Lungs/Pleura: 8 cm hilar mass appears largely unchanged but is partially obscured today. There is moderate sized right-sided pleural effusion which is increased over the comparison post-thoracentesis film of 04/19/2018. There is adjacent basilar opacity on the right consistent with atelectasis. Left lung is clear. No extraventilatory air. Mediastinum: Heart size is within normal limits. Left hilar contour and upper mediastinal contours are stable. Other: Left IJ approach Port-A-Cath in stable position tip in the lower third SVC. Stable fracture of superior median sternotomy wire 5 other wires are intact. Degenerative changes of the right shoulder. IMPRESSION: 1. Large right hilar mass partially obscured appears stable. 2. Moderate right effusion. RADIA
== END 2018-07-13 11:07 | disposition home or self-care (01) ==
LOC: DI 11:06
PROVIDERS: ATTEND Nurse Practitioner Family
DX: R05 Cough (principal); R91.8 Other nonspecific abnormal finding of lung field; J90 Pleural effusion, not elsewhere classified
CPT/HCPCS: 71046

== ENCOUNTER → 2018-07-13 | Outpatient (CLI) | payer OTHER ==
[2018-07-13 15:17] LABS: BASOPHILS % (AUTO) 0.3 %; EOSINOPHILS # (AUTO) 0.1 10^3/uL (0.0-0.7); EOSINOPHILS % (AUTO) 1.7 %; HGB - HEMOGLOBIN 12.5 g/dL (14.0-18.0); LYMPHOCYTES # (AUTO) 0.6 10^3/uL (1.5-3.5); LYMPHOCYTES % (AUTO) 8.5 %; MEAN CORPUSCULAR HGB CONC 33.5 g/dL (32.0-36.0); MEAN CORPUSCULAR VOLUME 89.5 fL (80.0-94.0); MEAN PLATELET VOLUME 8.5 fL (7.4-11.4); MONOCYTES # (AUTO) 0.6 10^3/uL (0.0-1.0); MONOCYTES % (AUTO) 8.1 %; NEUTROPHILS # (AUTO) 6.1 10^3/uL (1.5-6.6); NEUTROPHILS % (AUTO) 81.4 %; PLT - PLATELET COUNT 191 10^3/uL (130-450); RED BLOOD COUNT 4.17 10^6/uL (4.70-6.10); WHITE BLOOD COUNT 7.4 x10^3/uL (4.8-10.8)
[2018-07-13 15:25] LABS: ALBUMIN 3.2 g/dL (3.2-5.5); ALBUMIN/GLOBULIN RATIO 1.1 (1.0-2.2); BILIRUBIN,TOTAL 0.8 mg/dL (0.2-1.0); CALCIUM 8.8 mg/dL (8.5-10.3); CREATININE 0.6 mg/dL (0.6-1.2); TOTAL PROTEIN 6.2 g/dL (6.7-8.2)
== END ==
LOC: LAB.R 09:00
PROVIDERS: ATTEND Nurse Practitioner Family
DX: R05 Cough (principal)
CPT/HCPCS: 80053; 85025

== ENCOUNTER 2018-07-29 13:30 | Outpatient (CLI) | payer OTHER ==
--- NOTE | 2018-07-29 15:40 | XRAY Report ---
Reason: Post thoracentisis CXR Procedure Date: 07/29/2018 Accession Number: [id number] / [id number] Procedure: XR - Chest 1 View X-Ray CPT Code: 12447 FULL RESULT: EXAM: CHEST RADIOGRAPHY EXAM DATE: 07/29/2018 03:14 PM. CLINICAL HISTORY: Post thoracentesis chest x-ray. COMPARISON: Chest 2 views 07/13/2018. TECHNIQUE: 1 view. FINDINGS: Lungs/Pleura: At least moderate right pleural effusion, similar to prior. Aerated portions of the lung are within normal limits accounting for the known right lung pathology. No pneumothorax. Mediastinum: Within exam limitations, the cardiomediastinal contour is stable. Other: Left subclavian chest port unchanged. Median sternotomy wires unchanged. IMPRESSION: No evidence of postprocedural complication. RADIA
--- NOTE | 2018-07-29 15:55 | Ultrasound Report ---
Reason: PLEURAL EFFUSION Procedure Date: 07/29/2018 Accession Number: [id number] / [id number] Procedure: US - Thoracentesis Puncture CPT Code: FULL RESULT: EXAM: ULTRASOUND-GUIDED THORACENTESIS EXAM DATE: 07/29/2018 03:00 PM. CLINICAL HISTORY: Pleural effusion. COMPARISON: Thoracentesis puncture 04/19/2018 9:45 AM. TECHNIQUE: Risks, benefits and alternatives to the procedure were discussed with the patient. All questions answered. Written and verbal consent obtained. Patient was placed in the sitting position and the skin overlying the effusion marked with sonographic guidance. The skin was sterilely prepped and draped, and 1% buffered lidocaine was used for local anesthesia. An 17-gauge Yueh was advanced into the pleural space and fluid aspirated. Upon completion, the catheter was removed. FINDINGS: A total of 1200 mL of fluid was removed without immediate complication. Patient tolerated procedure well. IMPRESSION: Ultrasound-guided thoracentesis without immediate complications. RADIA
[2018-07-29] MEDS ORDERED: BUFFERED LIDOCAINE 10 ML SYRINGE IU ONE (17:17)
== END 2018-07-29 13:31 | disposition home or self-care (01) ==
LOC: DI 13:30
PROVIDERS: ATTEND Internal Medicine
DX: J90 Pleural effusion, not elsewhere classified (principal)
CPT/HCPCS: 32555; 71045

== ENCOUNTER 2018-08-18 13:56 | Outpatient (CLI) | payer OTHER ==
--- NOTE | 2018-08-19 10:48 | XRAY Report ---
Reason: MALIGNANT NEOPLASM OF UNSPECIFIED PART OF RIGHT BR Procedure Date: 08/18/2018 Accession Number: [id number] / [id number] Procedure: XR - Chest 2 View X-Ray CPT Code: 44930 FULL RESULT: EXAM: CHEST RADIOGRAPHY EXAM DATE: 08/18/2018 02:47 PM. CLINICAL HISTORY: Malignant neoplasm unspecified. COMPARISON: Chest 1 view 07/29/2018. Chest 2 views 07/13/2018. TECHNIQUE: 2 views. FINDINGS: Lungs/Pleura: Stable appearance of large partially obscured right hilar mass. Small to moderate right-sided pleural effusion is similar to comparison exams. Small amount of adjacent atelectasis. Trace left effusion. No extraventilatory air. Mediastinum: Heart and mediastinal contours are unremarkable. Other: Stable fracture superior median sternotomy wire; other sternotomy wires are intact. Stable position of a left-sided Port-A-Cath from IJ approach. IMPRESSION: 1. Stable exam findings of large right hilar mass and small to moderate-sized right effusion. 2. Trace left effusion. RADIA
== END 2018-08-18 13:57 | disposition home or self-care (01) ==
LOC: DI 13:56
PROVIDERS: ATTEND Internal Medicine
DX: C34.91 Malignant neoplasm of unspecified part of right bronchus or lung (principal); J90 Pleural effusion, not elsewhere classified
CPT/HCPCS: 71046

== ENCOUNTER 2018-09-21 13:02 | Outpatient (CLI) | payer OTHER ==
--- NOTE | 2018-09-21 15:14 | XRAY Report ---
Reason: COUGH Procedure Date: 09/21/2018 Accession Number: [id number] / [id number] Procedure: XR - Chest 2 View X-Ray CPT Code: 34626 FULL RESULT: EXAM: CHEST RADIOGRAPHY EXAM DATE: 09/21/2018 01:52 PM. CLINICAL HISTORY: Cough. COMPARISON: Chest 2 views 08/18/2018 2:47 PM. CHEST W/contrast 09/01/2018 11:00 AM. TECHNIQUE: 2 views. FINDINGS: Lungs/Pleura: Similar opacification of the right hemithorax to the CT study 09/01/2018, which has progression of fluid accumulation compared to 08/18/2018. Remaining portions of the right lung are therefore not evaluated. The aerated left lung is clear with a small left pleural effusion obscuring the left lung base. No pneumothorax is identified. Mediastinum: The mediastinum is shifted towards the right consistent with right-sided volume loss. The patient is status post left port placement and median sternotomy with CABG. The aortic arch is calcified. The cardiac silhouette is not adequately evaluated. Other: None. IMPRESSION: Large right hydrothorax as previously demonstrated on the CT 09/01/2018. RADIA
== END 2018-09-21 13:03 | disposition home or self-care (01) ==
LOC: DI 13:02
PROVIDERS: ATTEND Internal Medicine
DX: J94.8 Other specified pleural conditions (principal)
CPT/HCPCS: 71046

== ENCOUNTER 2018-09-29 08:37 | Outpatient (CLI) | payer OTHER ==
[~2018-09-29 08:37] MED LIST: BUFFERED LIDOCAINE 10 ML SYRINGE ONE
[2018-09-29 09:41] LABS: INR 1.3 (0.8-1.2); PT - PROTHROMBIN TIME 14.6 secs (9.9-12.6)
--- NOTE | 2018-09-29 11:39 | Ultrasound Report ---
Reason: PLURAL EFFUSION R Procedure Date: 09/29/2018 Accession Number: [id number] / [id number] Procedure: US - Thoracentesis Puncture CPT Code: FULL RESULT: EXAM: ULTRASOUND-GUIDED THORACENTESIS EXAM DATE: 09/29/2018 10:10 AM. CLINICAL HISTORY: Plural effusion right COMPARISON: THORACENTESIS PUNCTURE 07/29/2018 1:57 PM. TECHNIQUE: Risks, benefits and alternatives to the procedure were discussed with the patient. All questions answered. Written and verbal consent obtained. Patient was placed in the sitting position and the skin overlying the effusion marked with sonographic guidance. The skin was sterilely prepped and draped, and 1% buffered lidocaine was used for local anesthesia. An 18-gauge valved catheter needle combination was advanced into the right pleural space and fluid aspirated. Upon completion, the catheter was removed. FINDINGS: A total of 1500 mL of fluid was removed without immediate complication. The patient developed a sensation of indigestion and dull pressure-like left chest pain with mild tachycardia. This occurred in the setting of the patient not having taken his cardiac medication which reportedly includes a beta-umu. Based on an unremarkable postprocedure radiograph and the patient's symptomatology, the patient was transferred to the ED for further evaluation including EKG. IMPRESSION: Ultrasound-guided thoracentesis without immediate complications. RADIA
--- NOTE | 2018-09-29 11:41 | XRAY Report ---
Reason: POST THORA Procedure Date: 09/29/2018 Accession Number: [id number] / [id number] Procedure: XR - Chest 1 View X-Ray CPT Code: 01749 FULL RESULT: EXAM: CHEST RADIOGRAPHY EXAM DATE: 09/29/2018 11:11 AM. CLINICAL HISTORY: Post right thoracentesis. COMPARISON: CHEST 2 VIEW 09/21/2018 1:44 PM. TECHNIQUE: 1 view. FINDINGS: Essentially complete opacification of the right lung persists. A subcentimeter locule of gas within the fluid near the right lung apex is likely procedure related. There is mediastinal shift towards the right, essentially unchanged. The previously seen small left pleural effusion has resolved. The cardiomediastinal silhouette status post CABG with aortic arch calcifications is stable. The central venous port is unchanged. IMPRESSION: No radiographic complication status post right thoracentesis. RADIA
[2018-09-29] MEDS ORDERED: BUFFERED LIDOCAINE 10 ML SYRINGE IU ONE (15:46)
== END 2018-09-29 08:38 | disposition home or self-care (01) ==
LOC: DI 08:37
PROVIDERS: ATTEND Internal Medicine
DX: J90 Pleural effusion, not elsewhere classified (principal); C34.90 Malignant neoplasm of unspecified part of unspecified bronchus or lung; D49.1 Neoplasm of unspecified behavior of respiratory system; D64.9 Anemia, unspecified
CPT/HCPCS: 32555; 36415; 71045; 85610; 85730

== ENCOUNTER 2018-09-29 11:07 | Emergency (ER) | payer OTHER ==
[2018-09-29] MEDS ORDERED: SODIUM CHLORIDE 0.9% 1,000 ML IV ONE (11:23)
--- NOTE | 2018-09-29 11:26 | ED Physician Documentation ---
History of Present Illness - Stated complaint Stated Complaint: SOA - Chief complaint Chief Complaint: Resp - History obtained from History obtained from: Patient - History of Present Illness Timing: Today - Additonal information Additional information: 78-year-old male with lung cancer and a large right pleural effusion had his pleural effusion drained of about 1-1/2 L of fluid today shortly before coming to the emergency department. Following his procedure he developed tachycardia and chest pain. He has been n.p.o. for the procedure and he has not taken his morning medications that include a beta-umu. He has had a bypass operation he does not usually get chest pain and he is now developed left-sided chest pressure. His heart rate is elevated. Review of Systems Constitutional: denies: Fever Eyes: denies: Decreased vision Ears: denies: Ear pain Nose: denies: Rhinorrhea / runny nose, Congestion Throat: denies: Sore throat Cardiac: reports: Chest pain / pressure. denies: Palpitations, Pedal edema, Calf pain Respiratory: reports: Dyspnea. denies: Cough GI: denies: Abdominal Pain, Nausea, Vomiting : denies: Dysuria, Frequency PD PAST MEDICAL HISTORY - Past Medical History Past Medical History: Yes Cardiovascular: Hypertension, High cholesterol, Coronary artery disease, Other Respiratory: COPD, Other Neuro: None Endocrine/Autoimmune: None GI: GERD, Hiatal hernia, Hemorrhoids, Other : None HEENT: Chronic hearing loss, Chronic hearing loss Psych: None Musculoskeletal: Osteoarthritis Other Past Medical History: lung CA - Past Surgical History Past Surgical History: Yes General: EGD, Colonoscopy, Other Ortho: Arthroscopic surgery, Other Cardiovascular: CABG Derm: Other - Present Medications Home Medications: Ambulatory Orders Medication Instructions Recorded Confirmed Aspirin Chewable [St Dylan 81 mg PO DAILY 03/17/13 09/16/18 Aspirin] Atenolol [Tenormin] 75 mg PO DAILY 03/17/13 09/21/18 Cholecalciferol (Vitamin D3) 2,000 unit PO DAILY 03/17/13 09/21/18 [Vitamin D3] Iron 18 mg PO DAILY 03/17/13 09/21/18 Omeprazole [PriLOSEC] 20 mg PO DAILY 03/17/13 09/21/18 Simvastatin 40 mg PO DAILY 03/17/13 09/21/18 Dexamethasone 4 mg PO BID MDD Day prior & day 09/14/17 09/21/18 after chemo Potassium Chloride 10 meq PO DAILY #15 tablet.er 11/09/17 09/21/18 Magnesium Oxide [Mag Ox] 800 mg PO DAILY 11/17/17 09/21/18 Spironolactone 25 mg PO DAILY 11/17/17 09/21/18 Fluticasone [Flonase] 1 sprays KIKE DAILY PRN 03/31/18 09/21/18 LORazepam [Lorazepam] 0.5 - 1 mg PO Q6HR PRN 03/31/18 09/21/18 Prochlorperazine Maleate 10 mg PO Q6HR PRN 03/31/18 09/21/18 [Compazine] Budesonide/Formoterol Fumarate 2 puffs INH BID 05/21/18 09/21/18 [Symbicort 80-4.5 Mcg Inhaler] Travoprost 0.004% Ophth Drops 1 drops EACHEYE QPM 05/21/18 09/21/18 [Travatan Z] Acetaminophen/Cod 300/30 [Tylenol 0.5 tab PO DAILY 09/16/18 09/21/18 #3] HYDROcodone/ACET 10/325 [[place] 10 1 tab PO Q6HR PRN 09/16/18 09/21/18 mg/325 mg] Morphine Ir [Ms Ir] 0.5 tab PO Q6HR PRN 09/16/18 09/21/18 Ondansetron HCl [Zofran] 8 mg PO Q8HR PRN #30 tablet 09/16/18 - Allergies Allergies/Adverse Reactions: Allergies Allergy/AdvReac Type Severity Reaction Status Date / Time No Known Drug Allergies Allergy Verified 09/16/18 10:58 - Social History Does the pt smoke?: No Smoking Status: Never smoker Does the pt drink ETOH?: No Does the pt have substance abuse?: No - Immunizations Immunizations are current?: Yes - POLST Patient has POLST: No POLST Status: DNR PD ED PE NORMAL - Vitals Vital signs reviewed: Yes (hypertensive ) - General General: Alert and oriented X 3, Well developed/nourished, Other (tachypneic at rest) - HEENT HEENT: Atraumatic, PERRL, EOMI - Neck Neck: Supple, no meningeal sign - Cardiac Cardiac: No murmur, Other (tachy to 100) - Respiratory Respiratory: Other (tachypneic with normal breath sounds on the left and absent and reduced breath sounds on the right. ) - Abdomen Abdomen: Soft, Non tender - Back Back: No CVA TTP, No spinal TTP - Derm Derm: Normal color, Warm and dry, No rash - Extremities Extremities: No deformity, No edema - Neuro Neuro: Alert and oriented X 3, brass pickler 2-12 intact, No motor deficit, No sensory deficit, Normal speech Eye Opening: Spontaneous Motor: Obeys Commands Verbal: Oriented GCS Score: 15 - Psych Psych: Normal mood, Normal affect Results - Vitals Vitals: Vital Signs - 24 hr 09/29/18 09/29/18 09/29/18 11:09 11:34 12:42 Temperature 36.9 C Heart Rate 75 111 H 108 H Respiratory 24 27 H 27 H Rate Blood Pressure 136/94 H 126/84 H 135/89 H O2 Saturation 97 96 97 09/29/18 09/29/18 09/29/18 13:00 14:00 14:30 Temperature Heart Rate 111 H 109 H Respiratory 20 24 Rate Blood Pressure 109/83 H 106/82 H O2 Saturation 94 94 92 09/29/18 16:25 Temperature Heart Rate 97 Respiratory Rate Blood Pressure O2 Saturation 94 Oxygen O2 Source Room air Oxygen Flow Rate 3 - EKG (time done) 1110 Rate: Rate (enter#) (109) Rhythm: Sinus tachycardia [place]: LAD QRS: Poor R wave progression Compare to prior EKG: Changed from prior EKG (SPT 05-17-18 T waves are smaller today) Computer interpretation: Agree with computer - Labs Labs: Laboratory Tests 09/29/18 09/29/18 09/29/18 11:33 11:33 11:33 WBC 5.8 RBC 4.93 Hgb 13.0 L Hct 39.5 L MCV 80.2 MCH 26.4 L MCHC 32.9 RDW 17.6 H Plt Count 160 MPV 7.4 Neut # (Auto) 4.7 Lymph # (Auto) 0.4 L Andrews # (Auto) 0.7 Eos # (Auto) 0.0 Baso # (Auto) 0.0 Absolute Nucleated RBC 0.01 Nucleated RBC % 0.1 Sodium 134 L Potassium 3.9 Chloride 99 L Carbon Dioxide 24 Anion Gap 11.0 BUN 28 H Creatinine 0.9 Estimated GFR (MDRD) 82 L Glucose 93 Calcium 8.6 Total Bilirubin 1.3 H AST 34 ALT 70 H Alkaline Phosphatase 63 Troponin I < 0.04 Total Protein 6.4 L Albumin 3.1 L Globulin 3.3 Albumin/Globulin Ratio 0.9 L Lipase 19 L 09/29/18 13:25 WBC RBC Hgb Hct MCV MCH MCHC RDW Plt Count MPV Neut # (Auto) Lymph # (Auto) Andrews # (Auto) Eos # (Auto) Baso # (Auto) Absolute Nucleated RBC Nucleated RBC % Sodium Potassium Chloride Carbon Dioxide Anion Gap BUN Creatinine Estimated GFR (MDRD) Glucose Calcium Total Bilirubin AST ALT Alkaline Phosphatase Troponin I < 0.04 Total Protein Albumin Globulin Albumin/Globulin Ratio Lipase Procedures - IVC sono (time) 1120 Bedside IVC sono: IVC measures (cm) (unable to visualize vesssle adequately secondary to collapse.), Significant dehydration PD MEDICAL DECISION MAKING - ED course Complexity details: reviewed old records, reviewed results, re-evaluated patient, considered differential, d/w patient ED course: 78-year-old male with non-spell cell lung cancer has not responded adequately to treatment including treatment with Keytruda and he has had progression of his disease and now has a pleural effusion occupying most of the space of the left lung cavity. He has had 1-1/2 L of fluid drawn off today and did not improve and his lung expansion. He did develop chest pain and thus was brought to the emergency department for evaluation he was found to be significantly volume depleted and the thought was maybe he had demand ischemia he was hydrated and he did seem to improve he did we were able to give him some Toradol to help with his pain. At the conclusion of treatment the patient does have this large pleural effusion and he does appear to be nearing the end of his treatments. He has a consultation with palliative care and the information services assistant Kendra Finch comes to the emergency department to assist in decision making with this patient. We are considering [facility] for palliative care Departure - Departure Disposition: 01 Home, Self Care Clinical Impression: Pleural effusion, malignant, Dehydration Dyspnea Qualifiers: Dyspnea type: dyspnea on exertion Qualified Code(s): R06.09 - Other forms of dyspnea Non-small cell lung cancer (NSCLC) Qualifiers: Laterality: right Qualified Code(s): C34.91 - Malignant neoplasm of unspecified part of right bronchus or lung Condition: Stable Instructions: ED Dehydration, ED Dyspnea Shortness of Breath, ED Effusion Pleural Follow-Up: RALPH FERNANDEZ MD [Primary Care Provider] - Comments: follow-up with the [facility] as planned.
[2018-09-29 11:39] LABS: BASOPHILS % (AUTO) 0.2 %; LYMPHOCYTES # (AUTO) 0.4 10^3/uL (1.5-3.5); LYMPHOCYTES % (AUTO) 6.5 %; MEAN CORPUSCULAR HEMOGLOBIN 26.4 pg (27.0-31.0); MEAN CORPUSCULAR HGB CONC 32.9 g/dL (32.0-36.0); MEAN CORPUSCULAR VOLUME 80.2 fL (80.0-94.0); MEAN PLATELET VOLUME 7.4 fL (7.4-11.4); MONOCYTES # (AUTO) 0.7 10^3/uL (0.0-1.0); MONOCYTES % (AUTO) 11.8 %; NEUTROPHILS # (AUTO) 4.7 10^3/uL (1.5-6.6); NEUTROPHILS % (AUTO) 81.5 %; PLT - PLATELET COUNT 160 10^3/uL (130-450); RED BLOOD COUNT 4.93 10^6/uL (4.70-6.10); RED CELL DISTRIBUTION WIDTH 17.6 % (12.0-15.0); WHITE BLOOD COUNT 5.8 x10^3/uL (4.8-10.8)
[2018-09-29 11:52] LABS: ALBUMIN 3.1 g/dL (3.2-5.5); ALBUMIN/GLOBULIN RATIO 0.9 (1.0-2.2); BILIRUBIN,TOTAL 1.3 mg/dL (0.2-1.0); CALCIUM 8.6 mg/dL (8.5-10.3); CREATININE 0.9 mg/dL (0.6-1.2); TOTAL PROTEIN 6.4 g/dL (6.7-8.2)
[2018-09-29] MEDS ORDERED: KETOROLAC 30 MG/ML VIAL IVP STA (12:23)
[2018-09-29] MEDS ORDERED: FOLIC ACID INJ 1 MG, THIAMINE INJ 100 MG, MAGNESIUM SULFATE 2 GM, MULTIVITAMIN 10 ML in... IV STA ×5 (14:15)
[2018-09-29 17:25] VITALS: BP 124/78
== END 2018-09-29 17:32 | disposition home or self-care (01) ==
LOC: ED 11:07
DX: J91.0 Malignant pleural effusion (principal); C34.90 Malignant neoplasm of unspecified part of unspecified bronchus or lung; E86.0 Dehydration; R06.09 Other forms of dyspnea; R00.0 Tachycardia, unspecified; I10 Essential (primary) hypertension; E78.00 Pure hypercholesterolemia, unspecified; I25.10 Atherosclerotic heart disease of native coronary artery without angina pectoris; Z95.1 Presence of aortocoronary bypass graft; Z79.82 Long term (current) use of aspirin
CPT/HCPCS: 36415; 80053; 83690; 84484; 85025; 93005; 96361; 96365; 96366; 96375; 99283; 99284; J3411

== ENCOUNTER 2018-09-30 11:18 | Outpatient (CLI) | payer OTHER ==
--- NOTE | 2018-09-30 17:31 | CONSULTATION NOTE ---
Palliative Care Consultation - Referral Referring Provider: Kendra DOMINGUEZ Time of Visit: [id number] [address]erral setting: 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 He did have an ED visit, as he had developed chest pain and left-sided chest pressure. Patient has been in active treatment with palliative chemotherapy since June 2017. He was initially started on carboplatinum and Brent nonprogression was switched to pembrolizumab. He is actually managed to stay fairly independent, perceived fairly good quality of life this last year, though he did start developing increased shortness of breath in July 2018, and was shown to have an increase size of his right middle lobe mass, new infiltrates and collapse of his right upper lobe. The mass is actually encasing his right upper lobe bronchus and right mainstream bronchus. He took a trip to [place], to visit his sister with his brother. He reports this was a quality of life trip, and very glad he did it, but since this time has been deteriorating fairly rapidly. With increased shortness of breath, increased cough, decreased stamina, and when restarted on carbo red devil and naproxen did fairly poorly. Palliative care has been asked to meet with patient today, he is recognizing his limited life expectancy, is hopeful for some chemotherapeutic response, but feeling overwhelmed with the severity of his symptoms, and his complex social situation. Patient does have a brother and sister, but they are not anticipating in his care. He has a very good friend Robin, who is been his hunting and fishing partner for over 30 years, as well as works with him in real estate. Unfortunately Robin is leaving for [place] in the next couple days, and patient has very little social support nor any when he can identify to be a primary caregiver. In the context of this he is wanting to talk about the end of life continuum, including with dignity, he does have a visit with his primary care provider Dr. Vandana Maldonado this afternoon to make his first request. Medical/Surgical History - Past Medical History Cardiovascular: reports: Hypertension, High cholesterol, Coronary artery disease Respiratory: reports: COPD, Shortness of breath, Other (recurrent pleural effusions) Neuro: None Endocrine/Autoimmune: reports: Other (hx of hyperglycemia) GI: reports: GERD, Hiatal hernia, Hemorrhoids, Diverticulitis (05/20-05/22 2018 hospitalized) : reports: None HEENT: reports: Chronic hearing loss, Chronic hearing loss Psych: reports: Depression, Anxiety Musculoskeletal: reports: Osteoarthritis MRSA Hx?: No - Past Surgical History General: reports: EGD, Colonoscopy, Other Ortho: reports: Arthroscopic surgery, Other Cardiovascular: reports: CABG Derm: reports: Other - Substance History Use: Uses substance without health or social issues: Tobacco (quit 1967), Alcohol (hx of use), Cocaine (hx of use) Social History - Living Situation Living arrangement: At home Living Situation: Alone Support System: When discussed social support, reports brother lives in [place], but he would not want to be there for end of life nor have him be part of his primary care giving team. He reports his house is in somewhat disarray, as he is not been able to keep up over this last year given his ongoing steady functional decline. Patient's main support and who he identified today as his D POA is his friend Robin Cai. Family History - Family History Family History: Mother: (mother 62 of pancratic cancer; ), Cancer ( of lung cancer), Father: , Cancer Medications/Allergies - Medications Home Medications: Ambulatory Orders Medication Instructions Recorded Confirmed Aspirin Chewable [St Dylan 81 mg PO DAILY 03/17/13 09/16/18 Aspirin] Atenolol [Tenormin] 75 mg PO DAILY 03/17/13 09/21/18 Cholecalciferol (Vitamin D3) 2,000 unit PO DAILY 03/17/13 09/21/18 [Vitamin D3] Iron 18 mg PO DAILY 03/17/13 09/21/18 Omeprazole [PriLOSEC] 20 mg PO DAILY 03/17/13 09/21/18 Simvastatin 40 mg PO DAILY 03/17/13 09/21/18 Dexamethasone 4 mg PO BID MDD Day prior & day 09/14/17 09/21/18 after chemo Potassium Chloride 10 meq PO DAILY #15 tablet.er 11/09/17 09/21/18 Magnesium Oxide [Mag Ox] 800 mg PO DAILY 11/17/17 09/21/18 Spironolactone 25 mg PO DAILY 11/17/17 09/21/18 Fluticasone [Flonase] 1 sprays KIKE DAILY PRN 03/31/18 09/21/18 LORazepam [Lorazepam] 0.5 - 1 mg PO Q6HR PRN 03/31/18 09/21/18 Prochlorperazine Maleate 10 mg PO Q6HR PRN 03/31/18 09/21/18 [Compazine] Budesonide/Formoterol Fumarate 2 puffs INH BID 05/21/18 09/21/18 [Symbicort 80-4.5 Mcg Inhaler] Travoprost 0.004% Ophth Drops 1 drops EACHEYE QPM 05/21/18 09/21/18 [Travatan Z] Acetaminophen/Cod 300/30 [Tylenol 0.5 tab PO DAILY 09/16/18 09/21/18 #3] HYDROcodone/ACET 10/325 [[place] 10 1 tab PO Q6HR PRN 09/16/18 09/21/18 mg/325 mg] Morphine Ir [Ms Ir] 0.5 tab PO Q6HR PRN 09/16/18 09/21/18 Ondansetron HCl [Zofran] 8 mg PO Q8HR PRN #30 tablet 09/16/18 - Allergies Allergies/Adverse Reactions: Allergies Allergy/AdvReac Type Severity Reaction Status Date / Time No Known Drug Allergies Allergy Verified 09/16/18 10:58 Review of Systems - Constitutional Constitutional: reports: Fatigue, Weakness, Poor appetite, Weight loss. denies: Fever - Ears, Nose & Throat Ears, Nose & Throat: reports: Hearing loss, Hoarseness - Cardiovascular Cardiovascular: reports: Exertional dyspnea, Decr. exercise tolerance. denies: Edema, Orthopnea - Respiratory Respiratory: reports: Cough (frequent and unrelenting;), SOB at rest, SOB with exertion - Gastrointestinal Gastrointestinal: reports: Constipation, Poor appetite, Early satiety - Musculoskeletal Musculoskeletal: reports: Stiffness, Muscle weakness - Neurological Neurological: reports: General weakness - Psychiatric Psychiatric: reports: Depression, Anxiety - All Other Systems All Other Systems: reports: Other (limited ROS) Physical Exam - Vital Signs Temperature: 36.7 C Pulse Rate: 104 Respiratory Rate: 24 Blood Pressure: 121/81 - Physical Exam General Appearance: positive: Moderate distress (related to dyspnea/cough), Anxious Eyes Bilateral: positive: Normal inspection Neck: positive: No JVD, Trachea midline Cardiovascular: positive: Tachycardia Respiratory: positive: Other (patient with respiratory effort with conversation) Skin: positive: Pallor, Dryness Extremities: positive: No pedal edema Neurologic/Psychiatric: positive: Oriented x3, Weakness, Depressed mood/affect, Flat affect Palliative Care - POLST Patient has POLST: Yes POLST Status: DNR, Selective Treatment (completed at visit) Pain: No pain Tiredness/Fatigue: Severe (7-10) Drowsiness/Sedation: Mild (1-3) Nausea: Mild (1-3) Depression: Moderate (4-6) Anxiety: Severe (7-10) Dyspnea: Severe (7-10) Anorexia: Moderate (4-6) Sleep: Variable sleep pattern Constipation: Yes, Opoid induced, Intermittent constipation Feelings of wellbeing/Perceived Quality of Life: Poor, Worsening Performance Status: Patient has been fiercely independent up to this point in time, does recognize he is going to need increasing support and assistance. He is somewhat terrified, had the rapid functional decline he is experienced. His most overwhelming fear is that he will take care of himself. Up to this point in time he is still been independent in his ADLs, still driving though definitely would not recommend this at this point, as well as severe activity intolerance. - Palliative Care Discussion: Patient has a complicated social history included multiple marriages, children he no longer keeps in touch with, was in the [place]. 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 He is now faced with his severity of his illness, functional decline, and now with high symptom burden and is feeling somewhat overwhelmed. Patient is hoping to pursue with dignity, is meeting with his primary care provider this afternoon, but has done very little as far as planning for his end of life. At patient worries about most is not being able to breathe, he has been managing all his own care needs, medications up to this point in time. He is quite feisty, who is been frustrated with his course of illness on one hand, on the other grateful to have gotten a fairly "decent" year. Patient does not want to burden his brother, and also worried about his brothers catholic beliefs coming into play, nor his sister who is in [place]. He has spoken to his friend, Robin Cai [phone] about being his D POA. They have been good friends over 30 years, does believe he would make the appropriate decisions in the context of patient's values and beliefs. He is meeting with Dr. Maldonado with patient this afternoon, the patient seems to have very little insight or understanding of the process of DWD. Counseling provided at length regarding the continuum of care, the challenges of limited support system, need for a safe place for end of life. Even if patient were to pursue and choose DWD, he is starting this process, at least takes 2-3 weeks at a minimum, encouraged to contact [facility] for volunteer support. Counseling provided at length regarding hospice, the goals of care with the comfort, at this point in time patient has decided to proceed with chemotherapy today at treatment. Though he does recognize he is expected limited return on this, and also worried about considering benefits and burdens of moving forward with any kind of surgical intervention i.e. the Pleurx catheter. Patient does recognize he is at end of life, we did fill out a ROBERT ST, with a DNA R/allow natural , he did pick selective treatment versus comfort focused, as he is quite fearful of his dyspnea and shortness of breath, does want to be able to come to the emergency room at this point for relief of sympt oms, not for prolongation of life. At this point in time he would also accept antibiotics, but no medically assisted nutrition. Quality of life for patient is being independent, is very fearful of dependence. We did discuss in the context of caregiving, if patient tends not to identify primary companion caregiver, often patient can stay at SNF, but it would be private pay, and DWD would not be part of formula. Seen provided regarding the DWD process, cause, and specifics per patient's questioning. He is planning to make his first request this afternoon. Packet given with information and forms for support. Results - Lab Results Lab results reviewed: Yes Impression and Recommendations - Palliative Care Impression: This is a feisty 78-year-old gentleman with stage IV adenocarcinoma of the right upper lobe of lung with recurrent malignant pleural effusions. He is having disease progression, high symptom burden, and functional decline. He is fairly socially isolated, and faced with his current decline, looking at the end of life continuum. Palliative care providing support regarding counseling regarding options, establishing rapport today, and providing resources. Recommendations/Counseling Done: 1. Dyspnea/cough. Patient awaiting RT evaluation, has oxygen on secondary to dyspnea on arrival to clinic. Discussed patient may not meet criteria, did follow-up with both oncology [employer], and shared with patient can private pay for oxygen, or if patient decides to do her incision to hospice this is part of their support as well. Counseling provided regarding more aggressive management of his cough with his morphine, he does report he has MS IR 15 mg tabs, has not maximized the use of this. Patient also has very little recall, exactly what medications and how best to use these in his home setting. Instructed to use 1/2-1 tab every 4 hours [id number], to minimize respiratory distress and decreased cough. Patient is in a fair amount of respiratory distress at time of visit. 2. Constipation. Patient struggles with alternating constipation/diarrhea as a response to both chemo and morphine use. Instructed will need to increase bowel meds, reports he only has MiraLAX. Is unclear if he has any senna at [facility]. Has been hospitalized in the past for diverticulitis, patient is somewhat vague how he best manages his medications and bowel program. 3. Anxiety. Patient admits to overwhelming fear regarding suffering at end-of-life, dyspnea, and no faced with the continuum of care and complex management as one declines. Patient's friend Robin is leaving to go out of town, am concerned patient is going to have minimal support. Patient would benefit from the support of a hospice team, to help with anticipatory guidance, and end-of-life planning prior to crisis management. Counseling provided regarding goals of care for hospice are focused on comfort only, no further chemotherapy, nor hospitalization. 4. Advanced care planning. D POA was completed and notarized, given patient's acuity important to have this on record for the hospital. Did not want to put brother or sister as backup. Counseling provided regarding ROBERT ST, completed, instructed to post on refrigerator door. Counseling provided regarding DWD, process involved, and again recommendation for hospice for support until patient takes medications. Provided information also regarding settings for end of life, currently [facility] until late September, and [place] [facility] [place]. [place], this is the first time actually patient started to explore support for end of life. Patient in agreement for contact for palliative care on Wednesday, follow-up on patient's plan and appointment with PCP, symptom burden, and any other support needed to facilitate patient's preparation for managing ending end-of-life plans. Available continue to follow for symptom management if patient continued to pursue further treatment options, or assist with transition to hospice if desired. Time Spent: 60 minutes with greater than 50% of this done in counseling regarding goals of care, advanced care planning, symptom management, coordination of care with clinic.
== END 2018-09-30 11:19 | disposition home or self-care (01) ==
LOC: PC 11:18
PROVIDERS: ATTEND Nurse Practitioner Adult Health
DX: Z51.5 Encounter for palliative care (principal); C34.11 Malignant neoplasm of upper lobe, right bronchus or lung; J91.0 Malignant pleural effusion; K59.03 Drug induced constipation; T45.1X5A Adverse effect of antineoplastic and immunosuppressive drugs, initial encounter; T40.2X5A Adverse effect of other opioids, initial encounter; F41.9 Anxiety disorder, unspecified; I10 Essential (primary) hypertension; J44.9 Chronic obstructive pulmonary disease, unspecified; Z87.891 Personal history of nicotine dependence; Z66 Do not resuscitate; Z79.899 Other long term (current) drug therapy; Z79.891 Long term (current) use of opiate analgesic; Z87.19 Personal history of other diseases of the digestive system
CPT/HCPCS: 99205

== ENCOUNTER 2018-10-04 09:30 | Outpatient (CLI) | payer OTHER ==
--- NOTE | 2018-10-04 15:03 | CONSULTATION NOTE ---
Palliative Care Follow Up - Referral Referring Provider: Dr. Vesna No Time of Visit: 1729-7107 Referral setting: Home (It is a taxing considerable effort for the patient leave the home secondary severe respiratory distress and dyspnea.) Referral Reason: Met Lung Cancer/Dyspnea/Goals of Care - Information Sources History/Review of Systems obtained from: Patient Exam limitations: Clinical condition (patient with high anxiety and STM issues) - History of Present Illness Update Brief HPI Update: This is a 78-year-old gentleman who I met last Wednesday, patient has been deteriorating fairly quickly over the last couple weeks. He had been seen in the ED on 09/29 after a thoracentesis for malignant pleural effusion or he was drained 1.5 L. He developed chest pain, and left-sided chest pressure. Patient at baseline is been active treatment with palliative chemotherapy since June 2017. He has known increase in the right middle lobe mass, new infiltrates, and collapse of his right upper lobe. His mass is known to be encased his right upper lobe bronchus and right mainstream bronchus. He had gone to [place] to visit with his sister and brother, reports his been to deteriorating fairly rapidly since then, he has been having increased shortness of breath though has not qualified for oxygen. Patient is been quite adamant that he did not want a regular oxygen set up, but at [facility], have been trying to obtain this for him, was available tomorrow, but they were going to deliver oxygen today. Patient's sats are fine, it really is respiratory effort, any kind of movement causes increased respiratory distress. He is reporting increased cough, increased shortness of breath with any kind of activity, is having hair fall out from his chemotherapy he received on Wednesday, as well as now presents with some oral candidiasis and sore throat. He does appear quite frightened and anxious, is aware he needs a better plan rather than to be by himself. He had met with his primary care physician Dr. Nyasia Maldonado looking for follow-up on with [facility] medications, they are in that process, but this could be greater than 2 weeks at this point in time. He does admit to being somewhat hopeful he gets some response and better quality of life from his chemotherapy, this is why he chose to get it on Wednesday, but does recognize he is declining quite quickly and he needs a plan. Given patient's severity of distress, most likely with recurrent malignant pleural effusion, and patient without any support at home as far as her primary caregiver or someone to help him, recommended he go to the emergency room for symptomatic relief and evaluation for better symptom control. Patient is quite reluctant, worries about finances, and is awaiting further input from Dr. No tomorrow. The patient at this point in time is worsening, unsafe to be alone, and has poor symptom control. Patient did agree to allow me to follow up and obtain at least temporary oxygen for the day, able to have tanks delivered from [facility], [place], still awaiting confirmation on concentrator that patient wants which is portable in nature. Social History - Living Situation Living arrangement: At home Living Situation: Alone Medications/Allergies - Medications Home Medications: Ambulatory Orders Medication Instructions Recorded Confirmed Aspirin Chewable [St Dylan 81 mg PO DAILY 03/17/13 10/04/18 Aspirin] Atenolol [Tenormin] 75 mg PO DAILY 03/17/13 10/04/18 Cholecalciferol (Vitamin D3) 2,000 unit PO DAILY 03/17/13 10/04/18 [Vitamin D3] Omeprazole [PriLOSEC] 20 mg PO DAILY 03/17/13 10/04/18 Dexamethasone 4 mg PO BID MDD Day prior & day 09/14/17 10/04/18 after chemo Magnesium Oxide [Mag Ox] 800 mg PO DAILY 11/17/17 10/04/18 Fluticasone [Flonase] 1 sprays KIKE DAILY PRN 03/31/18 10/04/18 LORazepam [Lorazepam] 0.5 - 1 mg PO Q6HR PRN 03/31/18 10/04/18 Prochlorperazine Maleate 10 mg PO Q6HR PRN 03/31/18 10/04/18 [Compazine] Budesonide/Formoterol Fumarate 2 puffs INH BID 05/21/18 10/04/18 [Symbicort 80-4.5 Mcg Inhaler] Travoprost 0.004% Ophth Drops 1 drops EACHEYE QPM 05/21/18 10/04/18 [Travatan Z] Acetaminophen/Cod 300/30 [Tylenol 0.5 tab PO DAILY 09/16/18 10/04/18 #3] HYDROcodone/ACET 10/325 [Dennison 10 1 tab PO Q6HR PRN 09/16/18 10/04/18 mg/325 mg] Morphine Ir [Ms Ir] 15 mg PO Q4HR PRN 09/16/18 10/04/18 Ondansetron HCl [Zofran] 8 mg PO Q8HR PRN #30 tablet 09/16/18 10/04/18 Clotrimazole Darlene 10 mg PO 5XD 10/04/18 10/04/18 - Allergies Allergies/Adverse Reactions: Allergies Allergy/AdvReac Type Severity Reaction Status Date / Time No Known Drug Allergies Allergy Verified 09/16/18 10:58 Review of Systems - Constitutional Constitutional: reports: Fatigue, Malaise, Weight loss. denies: Fever - Ears, Nose & Throat Ears, Nose & Throat: reports: Other (c/o sore throat new this weekend) - Cardiovascular Cardiovascular: reports: Irregular heart rate, Palpitations, Exertional dyspnea, Decr. exercise tolerance - Respiratory Respiratory: reports: Cough, Sputum production (yellow sputum), Wheezing, Orthopnea, SOB at rest, SOB with exertion - Gastrointestinal Gastrointestinal: reports: Constipation, Early satiety, Other (difficult with meal prep; using smoothies and supplement drinks) - Musculoskeletal Musculoskeletal: reports: Stiffness, Muscle weakness, Other (limited secondary to dyspnea) - Integumentary Integumentary: reports: Dryness - Neurological Neurological: reports: General weakness - Psychiatric Psychiatric: reports: Depression, Anxiety - Endocrine Endocrine: reports: Intolerance to cold - All Other Systems All Other Systems: reports: Reviewed and negative Physical Exam - Vital Signs Temperature: 96.4 C Pulse Rate: 144 (had pt take atenolol 75 mg; after 45 " down to 72) Respiratory Rate: 28 (resp distress with any movement) O2 Saturation: 92 (ra at rest) Blood Pressure: 122/78 - Physical Exam General Appearance: positive: Moderate distress, Anxious Eyes Bilateral: positive: Normal inspection ENT: positive: Other (patient with scattered white patches back of throat & buccally) Neck: positive: Trachea midline Cardiovascular: positive: Tachycardia Respiratory: positive: Other (min. air movement on right up about 1/2 ; exp. wheezes ; patient with respiratory distress with any conversation or movement; coughing spasms; using "puffs" of oxygen with perceived relief. Had patient take morphine 15 mg at visit) Skin: positive: Pallor, Dryness Extremities: positive: No pedal edema Neurologic/Psychiatric: positive: Oriented x3 (easily "befuddled"), Depressed mood/affect, Flat affect Palliative Care - POLST Patient has POLST: Yes POLST Status: DNR, Selective Treatment Pain: Pain unchanged, Location (chest with coughing) Tiredness/Fatigue: Severe (7-10) Drowsiness/Sedation: Mild (1-3) Nausea: None Depression: Moderate (4-6) Anxiety: Severe (7-10) Dyspnea: Severe (7-10) Anorexia: Moderate (4-6) Sleep: Sleeps poorly Constipation: Yes, Opoid induced, Unmanaged Feelings of wellbeing/Perceived Quality of Life: Poor, Worsening Performance Status: Patient is feeling more vulnerable, has difficulty even ambulating the kitchen to get food and fluids. Has been staying mostly in his back bedroom, watching TV, not moving at all. Does not perceive he is able to get out to get medications/or groceries. Patient is beginning to think he needs to be some place where he can have support and ask for help if needed. - Palliative Care Discussion: Patient has identified Robin Cai as his D POA, they have been friends for 30 years, but he would not be his primary caregiver his phone number is [phone]. We had completed a [facility] as a do not attempt resuscitation and selective treatment/DNI on Wednesday. Patient does recognize his imminent decline. He is feeling somewhat overwhelmed by the urgency of needing a discharge plan, wondering about [facility] facilities, discussed hospice support but does not pay for room and board. He had very much wanted to do the with [facility], reports he had asked his doctor previous to Wednesday, will follow up and see if this is documented in his records this may be able to be expedited. We did discuss though in the context of placement, DWD is usually not an option. We will go ahead make a referral for end-of-life [place] volunteer to assist him with this process as well as have medical assistant supervisor reach out to Dr. Maldonado to assist with process. Call to Robin Cai with patient's permission, he has convinced him to come up to the ED at 315 today. Report called over to ED He will call patient's brother who is in [place], he may be wanting to be part of this care decision and team to come up with a plan to support Robin through his increased need of support and end-of-life care. Patient is easily befuddled, overwhelmed with the enormity of all the decisions to be made, and very distressed regarding finances. Impression and Recommendations - Palliative Care Impression: This is a 78-year-old gentleman who continues to deteriorate with increasing symptom burden related to his stage IV adenocarcinoma and recurrent malignant pleural effusions. He has a complex social situation with very little support, now presents with overwhelming symptom burden, and fairly quick decline. Patient is fairly realistic though remains hopeful has some time to finish up some of his end-of-life planning, patient to be admitted to ED, will need safe discharge plan for caregiving. Recommendations/Counseling Done: 1. Dyspnea this is multifactorial in origin. Patient does present with atrial fib and RVR. Patient given both morphine 15 mg and atenolol at visit with some improvement of heart rate and distress. Multiple calls to help facilitate oxygen, patient perceives this is helpful, though his O2 sats are within normal range. Patient has been instructed to use morphine every 4 hours [id number] to assist with cough and dyspnea, and Lorazepam 0.5 mg 1 tab 3- 4 times a day to assist with anxiety. Patient is found both helpful, denies sedation, or increased confusion though he is easily befuddled. Patient has been recommended to go to the ED, concern regarding recurrent malignant pleural effusion, patient has benefited in the past though recurrence is been fairly quick this last time. Unclear if patient would be a candidate given his frail status and rapid decline for a Pleurx, usually life expectancy needs to be around 3 months. 2. Oral candidiasis. There is still is shortage of nystatin, Chlortrimazole troches were ordered, message left for her friend to orange picker machine operator. As well as instructions given to patient to start as soon as received. 3. Advanced care planning. Patient has come to the realization is going to need increased support, is anxious regarding how this is going to come about, patient with limited resources nor with energy to follow-up on multiple calls. [facility] not [facility], patient and friend feel like patient would be able to afford short-term stay at SNF. Would recommend though, my understanding is Robin is leaving for 3 weeks on vacation, perhaps to find setting closer to brother where someone can oversee and support patient and care needs. Would recommend patient transition to hospice, for additional support no matter which setting he ends up in, will continue to work with PCP and end-o f-life [facility] to facilitate patient's option of DWD. ADDENDUM: Able to connect with Robin Cai, he has convinced him to go to the ED. Call over to Dr. Ramirez regarding goals of care. Patient does have a ROBERT ST is DO NOT RESUSCITATE/DNI. Patient with high symptom burden, does need admission for control of symptoms, and eventual discharge plan for support as is unsafe at home by himself. Robin will call his brother to try and enlist his help once he is up to the ED, reports he has been quite reluctant to include his brother but feels like his brother would be appropriate and want to be included. Time Spent: 60 minutes with greater than 50% of this done in counseling regarding goals of care, resources, obtaining oxygen, facilitating prescriptions and symptom management meds, and anticipatory guidance as well as referral to end of life [facility] and coordination of care with the ED
== END 2018-10-04 09:31 | disposition home or self-care (01) ==
LOC: PC 09:30
PROVIDERS: ATTEND Nurse Practitioner Adult Health
DX: Z51.5 Encounter for palliative care (principal); C34.11 Malignant neoplasm of upper lobe, right bronchus or lung; B37.0 Candidal stomatitis; F41.9 Anxiety disorder, unspecified; I48.91 Unspecified atrial fibrillation; Z60.2 Problems related to living alone; Z66 Do not resuscitate; Z79.899 Other long term (current) drug therapy; Z59.6 Low income
CPT/HCPCS: 99350